=== PATIENT | male | born 1975 | race Caucasian/White ===

== ENCOUNTER 2017-04-19 22:52 | Emergency (ER) | payer MEDICAID, OTHER ==
[2017-04-19 22:52] VITALS: BMI 42.7
[2017-04-19 23:34] VITALS: TEMP 98.4; O2SAT 95
[2017-04-20] MEDS ORDERED: Tdap Vaccine 0.5 ml Vial (10-64 yrs) IM ONE ×2 (00:01→00:12)
[2017-04-20] MEDS ORDERED: Epinephrine /Lidocaine HCL 1:100,000/2% 30 ml INJ ONE (00:01)
[2017-04-20] MEDS ORDERED: Bacitracin 500 Units/gm Oint Foilpak UD TOP ONE (00:01)
[2017-04-20] MEDS ORDERED: Lidocaine 2% w Epi 1:100,000 Inj IJ ONE (00:11)
[2017-04-20] MEDS ORDERED: Bacitracin 500 Units/gm Oint Foilpak UD ONE (00:11)
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
[2017-04-20 01:06] VITALS: BP 130/84; PULSE 92; RESP 18
== END 2017-04-20 01:06 | disposition home or self-care (01) ==
LOC: C.ER 22:52
DX: S01.81XA Laceration without foreign body of other part of head, initial encounter (principal); Y08.89XA Assault by other specified means, initial encounter

== ENCOUNTER 2017-05-21 10:47 | Inpatient (IN) | payer MEDICAID ==
[2017-05-21 11:05] VITALS: BMI 43.2
[2017-05-21] MEDS ORDERED: Piperacillin/Tazobact 3.375 gm 100 ML IV STA (11:18)
[2017-05-21] MEDS ORDERED: Vancomycin 1 GM 1 GM/250 ML BAG IV SCH (11:30)
--- NOTE | 2017-05-21 11:30 | C.PDOC ---
History Of Present Illness 42 year old male presents to the ED complaining of left second toe swelling and discoloration for the last 3 days. Patient also reports subjective fever and states today the area started burning. Past medical history includes right 1st toe amputation, uncontrolled diabetes, hypertension. Denies taking metformin or checking finger sticks at home. PMD: none Time Seen by Provider: 05/21/17 11:10 Chief Complaint (Nursing): Lower Extremity Problem/Injury History Per: Patient History/Exam Limitations: no limitations Onset/Duration Of Symptoms: Days (x3) Current Symptoms Are (Timing): Still Present Past Medical History Reviewed: Historical Data, Nursing Documentation, Vital Signs Vital Signs: Last Vital Signs Temp 98 F 05/21/17 11:04 Pulse 123 H 05/21/17 11:04 Resp 26 H 05/21/17 11:04 BP 146/97 H 05/21/17 11:04 Pulse Ox 97 05/21/17 12:52 - Medical History PMH: Diabetes, Fractures (CALCANEUS RIGHT ), HTN Denies: HIV, Chronic Kidney Disease Other Surgeries: Right toe amputation - [facility] Procedures INTRODUCE REGIONAL ANESTH IN PERIPH NRV, PLEXI, PERC (01/01/15) REPAIR RIGHT LOWER LEG TENDON, OPEN APPROACH (01/01/15) SUPPLEMENT R LOW LEG TENDON WITH NONAUT SUB, OPEN APPROACH (01/01/15) Family History: States: Unknown Family Hx - Social History Hx Alcohol Use: No Hx Substance Use: No - Immunization History Hx Tetanus Toxoid Vaccination: No Hx Influenza Vaccination: No Hx Pneumococcal Vaccination: No Review Of Systems Except As Marked, All Systems Reviewed And Found Negative. Constitutional: Positive for: Fever (tactile) Skin: Positive for: Other (warmth, swelling, discoloration to left 2nd toe) Neurological: Negative for: Numbness (and tingling) Physical Exam - Physical Exam Appears: No Acute Distress, Other (White obese male) Skin: Warm, Dry, Other (Left 2nd toe appears swollen, blue, foul smelling, with spreading cellulitis to the dorsum of left foot) Head: Atraumatic, Normacephalic Eye(s): bilateral: Normal Inspection, PERRL, EOMI Nose: Normal Neck: Normal ROM, Supple Chest: Symmetrical Cardiovascular: Rhythm Regular (but slightly tachy), No Murmur Respiratory: Normal Breath Sounds, No Accessory Muscle Use Extremity: Normal ROM, Deformity (Right 1st toe amputated surgically) Pulses: Left Dorsalis Pedis: Normal, Right Dorsalis Pedis: Normal Neurological/Psych: Oriented x3, Normal Speech, Normal Motor, Normal Sensation ED Course And Treatment - Laboratory Results Result Diagrams: 05/21/17 11:30 05/21/17 11:30 Lab Interpretation: Abnormal ECG: Interpreted By Me ECG Rhythm: Sinus Rhythm ECG Interpretation: Normal, Abnormal Rate From EC O2 Sat by Pulse Oximetry: 97 (RA) Pulse Ox Interpretation: Normal - Radiology CXR: Interpreted by Me CXR Interpretation: Yes: No Acute Disease - Other Rad L 2nd toe X-Ray: Interpreted by Me (no fx/gas/disloc) Progress Note: vanco, Zosyn, IVF, insulin IV Reevaluation Time: 12:35 Reassessment Condition: Improved - Physician Consult Information Outcome Of Conversation: 1230: d/w Dr. 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 1125: called to Podiatry Tool Polishing Machine Operator- pending call-back. 1300: d/w Podiatry Marito, will consult under Dr. Arroyo Medical Decision Making Medical Decision Making: Impression: uncontrolled DM with new L 2nd toe diabetic ulcer/toe. h/o R 1st toe amputation for similar. Time: 11:18 Initial Plan: --EKG --Accucheck --VBG --Urine drug screen --CMP --CBC --PTT --Prothrombin time --Chest x-ray --Blood culture --Urinalysis --IV Zosyn and Vanco --Pending x-ray of left foot (2nd digit) Initial finger stick > 500 Disposition Doctor Will See Patient In The: Hospital Counseled Patient/Family Regarding: Studies Performed, Diagnosis - Disposition Disposition: HOSPITALIZED Disposition Time: 12:37 Condition: GOOD - Clinical Impression Clinical Impression: Diabetic ulcer of toe of left foot associated with type 2 diabetes mellitus - Scribe Statement The provider has reviewed the documentation as recorded by the Tawanda Quinones Provider Attestation: All medical record entries made by the Marychuyiblela were at my direction and personally dictated by me. I have reviewed the chart and agree that the record accurately reflects my personal performance of the history, physical exam, medical decision making, and the department course for this patient. I have also personally directed, reviewed, and agree with the discharge instructions and disposition.
[2017-05-21 11:36] LABS: BASO # 0.1 K/uL (0.0-0.2); BASO % 1.4 % (0.0-2.0); EOS # 0.1 K/uL (0.0-0.7); EOS % 0.6 % (0.0-4.0); HEMOGLOBIN 15.8 g/dL (12.0-18.0); LYMPH # 1.6 K/uL (1.0-4.3); LYMPH % 18.8 % (20.0-40.0); MEAN CELL VOLUME 86.7 fL (80.0-94.0); MEAN CORPUSCULAR HEMOGLOBIN 30.3 pg (27.0-31.0); MEAN PLATELET VOLUME 10.4 fL (7.2-11.7); MONO # 0.8 K/uL (0.0-0.8); MONO % 9.5 % (0.0-10.0); NEUT % 69.7 % (50.0-75.0); NRBC % 0.1 % (0.0-2.0); RBC 5.2 Mil/uL (4.40-5.90); RED CELL DISTRIBUTION WIDTH 12.8 % (11.5-14.5); WHITE BLOOD COUNT 8.6 K/uL (4.8-10.8)
[2017-05-21 11:37] LABS: VENOUS BLOOD GAS BASE EXCESS -1.3 mmol/L (0.0-2.0); VENOUS BLOOD GAS PCO2 40 mmHg (40-60); VENOUS BLOOD GAS PO2 49 mm/Hg (30-55); VENOUS BLOOD PH 7.38 (7.32-7.43)
[2017-05-21 11:57] LABS: ALB/GLOB RATIO 1.1 (1.0-2.1); ALBUMIN 3.8 g/dL (3.5-5.0); ALT/SGPT 43 U/L (21-72); AST/SGOT 32 U/L (17-59); BLOOD UREA NITROGEN 14 mg/dL (9-20); CALCIUM 8.2 mg/dl (8.6-10.4); GFR AFRICAN-AMERICAN > 60; GFR NON-AFRICAN AMERICAN > 60
[2017-05-21] MEDS ORDERED: (Novolin R) Insulin Human Regular 100 units/ml vial IV ONE (11:57)
[2017-05-21 11:58] LABS: PROTHROMBIN TIME 11.6 SECONDS (9.7-12.2)
[2017-05-21] MEDS ORDERED: Sodium Chloride 0.9% 1,000 ML IV ONE ×2 (12:03→12:38)
[2017-05-21] MEDS ORDERED: (Novolin R) Insulin Human Regular 100 units/ml vial ONE (12:08)
[2017-05-21] MEDS ORDERED: Vancomycin 1 gm/NS 200 ml 1 GM/200 ML BAG IVPB ONE (12:30)
--- NOTE | 2017-05-21 13:06 | RAD ---
PROCEDURE: CHEST RADIOGRAPH, 1 VIEW HISTORY: SOB COMPARISON: None available. FINDINGS: LUNGS: Clear. PLEURA: No pneumothorax or pleural fluid seen. CARDIOVASCULAR: Normal. OSSEOUS STRUCTURES: No significant abnormalities. VISUALIZED UPPER ABDOMEN: Normal. OTHER FINDINGS: None. IMPRESSION: No active disease.
--- NOTE | 2017-05-21 13:08 | RAD ---
PROCEDURE: X-ray left foot attention 2nd digit HISTORY: L 2nd toe infection COMPARISON: Not available TECHNIQUE: Three views of the left foot are submitted with attention to the 2nd digit. FINDINGS: There is no evidence of fracture. There is no lytic or blastic osseous lesion. There is no periosteal reaction appreciated. The joint spaces and articular surfaces are preserved. There is soft tissue swelling seen about the 2nd distal phalanx. IMPRESSION: No plain radiographic evidence of osteomyelitis.
[2017-05-21 13:12] LABS: URINE BACTERIA RARE (<OCC); URINE BILIRUBIN NEGATIVE (NEGATIVE); URINE BLOOD NEGATIVE (NEGATIVE); URINE CLARITY Clear (Clear); URINE COLOR Red (YELLOW); URINE GLUCOSE (UA) 3+ mg/dL (Normal); URINE LEUKOCYTE ESTERASE NEG Leu/uL (Negative); URINE PROTEIN NEGATIVE (NEGATIVE); URINE UROBILINOGEN NORMAL mg/dL (0.2-1.0)
[2017-05-21 13:19] LABS: BARBITURATES, UR NEGATIVE (NEGATIVE); BENZODIAZEPINES, UR NEGATIVE (NEGATIVE); PHENCYCLIDINE, UR NEGATIVE (NEGATIVE)
[2017-05-21 13:43] LABS: OPIATES, UR NEGATIVE (NEGATIVE)
--- NOTE | 2017-05-21 16:05 | CP.PCM.CON ---
History of Present Illness - History of Present Illness History of Present Illness: podiatry consult note for Dr. Arroyo: 42 y/o male with pmhx of uncontrolled DM, Fractures (CALCANEUS RIGHT ), HTN seen in the ED for left foot redness and swelling Patient states that about 4 days ago he removed the nail on his second toe, and yesterday he noticed redness and swelling that started streaking up his foot. Patient states that he had a previous amputation on his right foot by Dr. Gonzalez. Patient states that yesterday he felt achy and feverish but today he feels slightly better. Patient denies any other pedal complaints at this time. Patient denies any pain in his foot. He denies any n/v/d/c/sob. Patient states that he does not take any medication for his diabetes because it makes him nauseous. Review of Systems - Constitutional Constitutional: As Per HPI Past Patient History - Infectious Disease Hx of Infectious Diseases: None - Past Medical History & Family History Past Medical History?: Yes - Past Social History Smoking Status: Former Smoker - CARDIAC Hx Hypertension: Yes - PULMONARY Hx Respiratory Disorders: No - NEUROLOGICAL Hx Neurological Disorder: No - HEENT Hx HEENT Problems: No - RENAL Hx Chronic Kidney Disease: No - ENDOCRINE/METABOLIC Hx Endocrine Disorders: Yes Hx Diabetes Mellitus Type 2: Yes Other/Comment: As per patient the doctor told him he's hypertensive and diabetic but no medications. - HEMATOLOGICAL/ONCOLOGICAL Hx Human Immunodeficiency Virus (HIV): No - INTEGUMENTARY Hx Dermatological Problems: No - MUSCULOSKELETAL/RHEUMATOLOGICAL Hx Fractures: Yes (CALCANEUS RIGHT ) - GASTROINTESTINAL Hx Gastrointestinal Disorders: Yes Hx Gastroesophageal Reflux: Yes - GENITOURINARY/GYNECOLOGICAL Hx Genitourinary Disorders: No - PSYCHIATRIC Hx Substance Use: No - SURGICAL HISTORY Hx Surgeries: Yes Other/Comment: right great toe amputation. - ANESTHESIA Hx Anesthesia: Yes Hx Anesthesia Reactions: No Meds Allergies/Adverse Reactions: Allergies Allergy/AdvReac Type Severity Reaction Status Date / Time No Known Allergies Allergy Verified 05/21/17 11:04 Physical Exam - Constitutional Appears: Well, Non-toxic, No Acute Distress - Extremities Exam Additional comments: left foot focused: Vasc: palpable DP/PT pulses, TG warm to warm, CFT < 3 sec to all digits, nonpitting edema, absent pedal hair neuro: grossly diminished derm: ascending cellulitis to proximal foot, edema and erythema noted to 2nd digit with fluctuance at the distal aspect of the digit, no open lesions, slight malodor, no interdigital maceration, bulla formation at the distal tip of 2nd digit ortho: no pain on palpation to 2nd digit - Neurological Exam Neurological exam: Alert, Oriented x3 - Psychiatric Exam Psychiatric exam: Normal Affect, Normal Mood Results - Vital Signs Recent Vital Signs: Last Vital Signs Temp 97.8 F 05/21/17 15:38 Pulse 86 05/21/17 15:38 Resp 16 05/21/17 15:38 BP 139/90 05/21/17 15:38 Pulse Ox 96 05/21/17 15:38 - Labs Result Diagrams: 05/21/17 11:30 05/21/17 11:30 Labs: Laboratory Results - last 24 hr 05/21/17 05/21/17 05/21/17 11:17 11:30 11:30 WBC 8.6 RBC 5.20 Hgb 15.8 Hct 45.1 MCV 86.7 MCH 30.3 MCHC 35.0 RDW 12.8 Plt Count 144 MPV 10.4 Neut % (Auto) 69.7 Lymph % (Auto) 18.8 L [place] % (Auto) 9.5 Eos % (Auto) 0.6 Baso % (Auto) 1.4 Neut # (Auto) 6.0 Lymph # (Auto) 1.6 [place] # (Auto) 0.8 Eos # (Auto) 0.1 Baso # (Auto) 0.1 PT INR APTT pO2 VBG pH VBG pCO2 VBG HCO3 VBG Total CO2 VBG O2 Sat (Calc) VBG Base Excess VBG Potassium Glucose Lactate Crit Value Called To Crit Value Called By Crit Value Read Back Blood Gas Notified Time Sodium 134 Potassium 4.2 Chloride 95 L Carbon Dioxide 22 Anion Gap 22 H BUN 14 Creatinine 0.8 Est GFR ( Amer) > 60 Est GFR (Non-Af Amer) > 60 POC Glucose (mg/dL) > 500 H* Random Glucose 523 H* D Calcium 8.2 L Total Bilirubin 0.7 AST 32 ALT 43 Alkaline Phosphatase 89 Total Protein 7.3 Albumin 3.8 Globulin 3.5 Albumin/Globulin Ratio 1.1 Venous Blood Potassium Urine Color Urine Clarity Urine pH Ur Specific [place] Urine Protein Urine Glucose (UA) Urine Ketones Urine Blood Urine Nitrate Urine Bilirubin Urine Urobilinogen Ur Leukocyte Esterase Urine Bacteria Urine Opiates Screen Urine Methadone Screen Ur Barbiturates Screen Ur Phencyclidine Scrn Ur Amphetamines Screen U Benzodiazepines Scrn U Oth Cocaine Metabols U Cannabinoids Screen 05/21/17 05/21/17 05/21/17 11:33 11:45 12:49 WBC RBC Hgb Hct MCV MCH MCHC RDW Plt Count MPV Neut % (Auto) Lymph % (Auto) [place] % (Auto) Eos % (Auto) Baso % (Auto) Neut # (Auto) Lymph # (Auto) [place] # (Auto) Eos # (Auto) Baso # (Auto) PT 11.6 INR 1.0 APTT 25 pO2 49 VBG pH 7.38 VBG pCO2 40 VBG HCO3 23.5 VBG Total CO2 24.9 VBG O2 Sat (Calc) 89.4 H VBG Base Excess -1.3 L VBG Potassium 4.1 Glucose 539 H* Lactate 3.5 H Crit Value Called To Lorenzo osman rn Crit Value Called By Mr Crit Value Read Back Y Blood Gas Notified Time 1137 Sodium 132.0 Potassium Chloride 94.0 L Carbon Dioxide Anion Gap BUN Creatinine Est GFR ( Amer) Est GFR (Non-Af Amer) POC Glucose (mg/dL) Random Glucose Calcium Total Bilirubin AST ALT Alkaline Phosphatase Total Protein Albumin Globulin Albumin/Globulin Ratio Venous Blood Potassium 4.1 Urine Color Red Urine Clarity Clear Urine pH 5.0 Ur Specific [place] 1.031 H Urine Protein Negative Urine Glucose (UA) 3+ H Urine Ketones Trace Urine Blood Negative Urine Nitrate Negative Urine Bilirubin Negative Urine Urobilinogen Normal Ur Leukocyte Esterase Neg Urine Bacteria Rare Urine Opiates Screen Urine Methadone Screen Ur Barbiturates Screen Ur Phencyclidine Scrn Ur Amphetamines Screen U Benzodiazepines Scrn U Oth Cocaine Metabols U Cannabinoids Screen 05/21/17 05/21/17 12:49 13:56 WBC RBC Hgb Hct MCV MCH MCHC RDW Plt Count MPV Neut % (Auto) Lymph % (Auto) [place] % (Auto) Eos % (Auto) Baso % (Auto) Neut # (Auto) Lymph # (Auto) [place] # (Auto) Eos # (Auto) Baso # (Auto) PT INR APTT pO2 VBG pH VBG pCO2 VBG HCO3 VBG Total CO2 VBG O2 Sat (Calc) VBG Base Excess VBG Potassium Glucose Lactate Crit Value Called To Crit Value Called By Crit Value Read Back Blood Gas Notified Time Sodium Potassium Chloride Carbon Dioxide Anion Gap BUN Creatinine Est GFR ( Amer) Est GFR (Non-Af Amer) POC Glucose (mg/dL) 293 H Random Glucose Calcium Total Bilirubin AST ALT Alkaline Phosphatase Total Protein Albumin Globulin Albumin/Globulin Ratio Venous Blood Potassium Urine Color Urine Clarity Urine pH Ur Specific [place] Urine Protein Urine Glucose (UA) Urine Ketones Urine Blood Urine Nitrate Urine Bilirubin Urine Urobilinogen Ur Leukocyte Esterase Urine Bacteria Urine Opiates Screen Negative Urine Methadone Screen Negative Ur Barbiturates Screen Negative Ur Phencyclidine Scrn Negative Ur Amphetamines Screen Negative U Benzodiazepines Scrn Negative U Oth Cocaine Metabols Negative U Cannabinoids Screen Positive H Assessment & Plan - Assessment and Plan (Free Text) Assessment: 42 y/o male with pmhx of uncontrolled DM, HTN, fracture (right calcaneus) seen at bedside in the ED for left foot cellulitis secondary to uncontrolled diabetes Plan: patient evaluated and chart reviewed discussed in detail with attending Dr. Arroyo labs and vitals reviewed; afebrile, WBC 8.6, glucose 539 incision and drainage at bedside in the ED of left 2nd digit- expressed 10CC of purulent drainage with strong malodor wound cx obtained applied betadine, DSD to left foot x ray of left foot show no evidence of soft tissue emphysema, no evidence of acute OM, positive for swelling of 2nd digit Rx MRI left foot to rule out OM Cont. IV abx as recommended podiatry will continue to monitor while patient remains in house
[2017-05-21] MEDS: Piperacill/Tazo 3.375gm in Dex 3.375 GM/50 ML BAG IVPB SCH ×2 (18:51→22:37)
[2017-05-21] MEDS: (Novolog) Insulin Aspart, Recombinant 100 u/ml 10 ml vial SC SCH (21:42)
[2017-05-21] MEDS ORDERED: (Lantus) Insulin Glargine, Recombinant SC SCH (22:00)
[2017-05-21] MEDS ORDERED: (Novolin R) Insulin Human Regular 100 units/ml vial SC SCH (22:00)
[2017-05-22] MEDS: Piperacill/Tazo 3.375gm in Dex 3.375 GM/50 ML BAG IVPB SCH ×4 (05:41→22:07)
[2017-05-22] MEDS ORDERED: (Novolog Mix 70/30) Insulin Aspart/Insulin Aspar 100 units/ml SC SCH ×2 (07:30→16:30)
[2017-05-22] MEDS: (Novolog) Insulin Aspart, Recombinant 100 u/ml 10 ml vial SC SCH ×4 (07:36→22:28)
[2017-05-22 07:41] LABS: ALBUMIN 3.4 g/dL (3.5-5.0); ALT/SGPT 43 U/L (21-72); AST/SGOT 27 U/L (17-59); BLOOD UREA NITROGEN 15 mg/dL (9-20); CALCIUM 8.2 mg/dl (8.6-10.4); GFR AFRICAN-AMERICAN > 60; GFR NON-AFRICAN AMERICAN > 60
[2017-05-22 07:44] LABS: BASO % 0.4 % (0.0-2.0); EOS # 0.1 K/uL (0.0-0.7); EOS % 1.4 % (0.0-4.0); HEMOGLOBIN 14.6 g/dL (12.0-18.0); LYMPH # 2.4 K/uL (1.0-4.3); LYMPH % 31.8 % (20.0-40.0); MEAN CELL VOLUME 86.4 fL (80.0-94.0); MEAN CORPUSCULAR HEMOGLOBIN 30.1 pg (27.0-31.0); MEAN CORPUSCULAR HGB CONC 34.8 g/dL (33.0-37.0); MONO # 0.9 K/uL (0.0-0.8); MONO % 12.3 % (0.0-10.0); NEUT # 4.1 K/uL (1.8-7.0); NEUT % 54.1 % (50.0-75.0); RBC 4.84 Mil/uL (4.40-5.90); RED CELL DISTRIBUTION WIDTH 13.1 % (11.5-14.5); WHITE BLOOD COUNT 7.6 K/uL (4.8-10.8)
--- NOTE | 2017-05-22 08:22 | CON ---
DATE: ENDOCRINOLOGY CONSULT LOCATION: Room 552. HISTORY OF PRESENT ILLNESS: This is a 42-year-old male with known history of type 2 diabetes, admitted with left foot cellulitis and referred now for diabetic evaluation because of marked hyperglycemic accelerations with very poor adherence to his oral hypoglycemic therapy as given. PAST MEDICAL HISTORY: As mentioned above history of type 2 diabetes, previously on metformin therapy, history of hypertension and dyslipidemia, history of a previous right first toe amputation with underlying peripheral arterial vasculopathy. FAMILY HISTORY: Positive for diabetes and hypertension. SOCIAL HISTORY: The patient has supportive family. Admits to previous history of smoking. REVIEW OF SYSTEMS: Admits to generalized body weakness with easy fatigability and tiredness and suboptimal energy level with episodic dizziness and lightheadedness. Also admits to visual blurring, worse in the last two weeks or so prior to admission. No chest pain, palpitations, or PND. His oral intake is variable with nausea and dyspepsia and admits to marked polyuria, nocturia and polydipsia. Also admits to lower extremity painful paresthesias, especially nocturnally. He also admits to recent swelling in the second toe of the right foot with associated edema and painful paresthesias. He has prior removal of his nail in the second toe as noted few days prior to admission. PHYSICAL EXAMINATION: GENERAL: He is an obese male, in no apparent distress. VITAL SIGNS: Blood pressure of 140/90, pulse of 100 beats per minute and regular, temperature 99, respirations 20, height is 5 feet 11 inches, and weight is 310 pounds. HEENT: Head is normocephalic. Eyes are nonicteric with pink conjunctivae. Funduscopy is not possible at this time. Ears, nose and throat otherwise normal. NECK: Supple. Thyroid gland is normal in size. No carotid bruits or cervical adenopathy. CARDIOPULMONARY: Some adynamic precordium. S1 and S2 is rapid and regular. LUNGS: Clear to auscultation. ABDOMEN: Obese, soft with positive bowel sounds. EXTREMITIES: No peripheral edema, pulses are diminished peripherally and the right foot shows healed stump in the right hallux area, and the left foot shows erythema and edema in the proximal dorsal aspect of the left foot with prominent edema and erythema in the second digit as noted. There is also fluctuant area in the distal aspect of the second toe as noted. LABORATORY DATA: Chemistries, WBC is 8.6, hemoglobin of 15, hematocrit of 45, MCV 86, platelets 144. Chemistries showed a BUN of 14, sodium 134, potassium 4.2, chloride 95, CO2 of 22, glucose 523, and creatinine 0.8. His A1c level is 12.9%. ASSESSMENT: This is a 42-year-old male with uncontrolled and decompensated type 2 insulin requiring diabetes with marked hyperglycemic accelerations clearly indicative of marked metabolic decompensation and insulin requiring at this time as noted. There is also underlying super morbid obesity which could contribute to increase insulin resistance and further impaired glucose tolerance thereof. He also has diabetic polyneuropathy with underlying peripheral arterial vasculopathy presenting here with the left foot cellulitis and prominent left second digit infected wound at this time. PLAN OF MANAGEMENT: Although the patient is extremely poorly compliant with oral hypoglycemic therapy, we obliged to at least initiate insulin therapy for inpatient diabetic management to optimize metabolic control and also to expedite the healing of his left foot cellulitis as noted thereof. With the marked glucotoxicity, there would be no response to oral hypoglycemic therapy as inpatient and he would best respond only to insulin therapy as will be given and ordered. We will initiate Lantus tonight given as 20 units at bedtime, and we will titrate incrementally to optimize metabolic control. We will also add a premixed insulin regimen tomorrow with Novolin 70/30 given as 24 units a.c. breakfast and 16 units a.c. dinner as ordered. We will modify the coverage scale to obviate hypoglycemia and detailed orders have been given for a low dosed Novolog coverage scale as ordered. We will obtain serial chemistries and supplement accordingly as needed. He would ideally actually require IV hydration but because of his poor compliance, we will hold off the aforementioned and increase oral fluid intake accordingly. We will initiate diabetic education and dietary instructions especially weight loss efforts and healthier food choices, and we will request our thermal molder for aforementioned nutritional evaluation and recommendations. We will follow up with you. Naima Aguilar MD
--- NOTE | 2017-05-22 09:03 | CP.PCM.PN ---
Subjective - Date & Time of Evaluation Date of Evaluation: 05/22/17 Time of Evaluation: 09:00 - Subjective Subjective: podiatry progress note for Dr. Arroyo: 42 y/o male seen at bedside this morning regarding left foot redness and swelling. Patient denies any acute events overnight. Patient appears in NAD and AAOx3. Patient states that the redness and swelling has improved since yesterday. Patient denies any other pedal complaints at this time. Patient denies any pain in his foot. He denies any n/v/d/c/sob. Objective - Vital Signs/Intake and Output Vital Signs (last 24 hours): Temp Pulse Resp BP Pulse Ox 97.9 F 76 20 123/86 95 05/22/17 07:05 05/22/17 07:05 05/22/17 07:05 05/22/17 07:05 05/22/17 07:05 Intake and Output: 05/22/17 05/22/17 06:59 18:59 Intake Total 150 Balance 150 - Medications Medications: Current Medications Enoxaparin Sodium (Lovenox) 40 mg SC DAILY JACY Piperacillin Sod/Tazobactam Sod (Zosyn 3.375 Gm Iv Premix) 3.375 gm in 50 mls @ 100 mls/hr IVPB Q6H JACY PRN Reason: Protocol Last Admin: 05/22/17 05:41 Dose: 100 mls/hr Insulin Aspart (Novolog Mix 70/30 (70/30 Units/Ml)) 24 units SC ACB JACY Last Admin: 05/22/17 08:30 Dose: 24 units Insulin Aspart (Novolog Mix 70/30 (70/30 Units/Ml)) 16 units SC ACD JACY Insulin Aspart (Novolog) 0 unit SC ACHS JACY PRN Reason: Protocol Last Admin: 05/22/17 07:36 Dose: Not Given Insulin Glargine (Lantus) 20 unit SC HS JACY Last Admin: 05/21/17 22:36 Dose: 20 unit - Labs Labs: 05/22/17 07:19 05/22/17 07:19 PT 11.6 SECONDS (9.7-12.2) 05/21/17 11:45 INR 1.0 05/21/17 11:45 APTT 25 SECONDS (21-34) 05/21/17 11:45 - Constitutional Appears: Well, Non-toxic, No Acute Distress - Extremities Exam Additional comments: left foot focused: Vasc: palpable DP/PT pulses, TG warm to warm, CFT < 3 sec to all digits, nonpitting edema, absent pedal hair neuro: grossly diminished derm: ascending cellulitis to proximal foot- improved since yesterday, edema and erythema noted to 2nd digit with fluctuance at the distal aspect of the digit, no open lesions, slight malodor, no interdigital maceration, bulla formation at the distal tip of 2nd digit, expressed 4 CC of mixed purulent/ sanguinous drainage ortho: no pain on palpation to 2nd digit - Neurological Exam Neurological Exam: Alert, Awake, Oriented x3 - Psychiatric Exam Psychiatric exam: Normal Affect, Normal Mood Assessment and Plan - Assessment and Plan (Free Text) Assessment: 42 y/o male seen at bedside for left foot cellulitis secondary to uncontrolled diabetes, improving Plan: patient evaluated and chart reviewed discussed in detail with attending Dr. Arroyo labs and vitals reviewed; afebrile, WBC 7.6, glucose 239 expressed ~4CC of mixed purulent/sanguinous drainage from left 2nd digit wound cx obtained, awaiting results applied betadine, DSD to left foot x ray of left foot show no evidence of soft tissue emphysema, no evidence of acute OM, positive for swelling of 2nd digit MRI left foot consistent with cellulitis, no acute evidence of OM Cont. IV abx as recommended podiatry will continue to monitor while patient remains in house
[2017-05-22] MEDS: Enoxaparin 60 mg Syringe SC SCH (09:30)
--- NOTE | 2017-05-22 12:03 | MRI ---
PROCEDURE: MRI Left Foot HISTORY: Pain. COMPARISON: None available. TECHNIQUE: Multiecho multiplanar sequences were performed through the left foot without the use of intravenous contrast. FINDINGS: BONES: No fracture identified. There is joint space narrowing of the 1st MTP joint as well as patchy areas of marrow edema within the head and neck of the 1st metatarsal. Sclerosis and marginal osteophytes also noted of the 1st MTP joint. Remainder of the visualized bones demonstrate unremarkable marrow signal. MUSCLES: Muscle edema noted within the 4th and 5th intermetatarsal muscle. SOFT TISSUES: There is diffuse soft tissue edema primarily along the dorsum of the foot greatest above the 2nd 3rd and 4th digits. Subcutaneous soft tissue edema noted along the dorsum of the foot. LISFRANC LIGAMENT: Intact EXTENSOR TENDONS: Intact FLEXOR TENDONS: Intact OTHER FINDINGS: None. IMPRESSION: Cellulitis, primarily in the region of the 2nd, 3rd, and 4th digits. No focal fluid collection identified to suggest abscess. 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 No definite osteomyelitis identified. Muscle edema within the 4th and 5th intermetatarsal space Preliminary impression was provided by [facility]. Findings are concordant.
--- NOTE | 2017-05-22 14:34 | CP.PCM.CON ---
History of Present Illness - History of Present Illness History of Present Illness: dictated Past Patient History - Infectious Disease Hx of Infectious Diseases: None - Past Medical History & Family History Past Medical History?: Yes - Past Social History Smoking Status: Current Some Days Smoker - CARDIAC Hx Hypertension: Yes - PULMONARY Hx Respiratory Disorders: No - NEUROLOGICAL Hx Neurological Disorder: No - HEENT Hx HEENT Problems: No - RENAL Hx Chronic Kidney Disease: No - ENDOCRINE/METABOLIC Hx Endocrine Disorders: Yes Hx Diabetes Mellitus Type 2: Yes Other/Comment: As per patient the doctor told him he's hypertensive and diabetic but no medications. - HEMATOLOGICAL/ONCOLOGICAL Hx Human Immunodeficiency Virus (HIV): No - INTEGUMENTARY Hx Dermatological Problems: No - MUSCULOSKELETAL/RHEUMATOLOGICAL Hx Fractures: Yes (CALCANEUS RIGHT ) - GASTROINTESTINAL Hx Gastrointestinal Disorders: Yes Hx Gastroesophageal Reflux: Yes - GENITOURINARY/GYNECOLOGICAL Hx Genitourinary Disorders: No - PSYCHIATRIC Hx Substance Use: No - SURGICAL HISTORY Hx Surgeries: Yes Other/Comment: right great toe amputation. - ANESTHESIA Hx Anesthesia: Yes Hx Anesthesia Reactions: No Meds Allergies/Adverse Reactions: Allergies Allergy/AdvReac Type Severity Reaction Status Date / Time No Known Allergies Allergy Verified 05/21/17 11:04 - Medications Medications: Current Medications Enoxaparin Sodium (Lovenox) 40 mg SC DAILY [facility] Last Admin: 05/22/17 09:30 Dose: 40 mg Piperacillin Sod/Tazobactam Sod (Zosyn 3.375 Gm Iv Premix) 3.375 gm in 50 mls @ 100 mls/hr IVPB Q6H JACY PRN Reason: Protocol Last Admin: 05/22/17 10:15 Dose: 100 mls/hr Insulin Aspart (Novolog) 0 unit SC ACHS JACY PRN Reason: Protocol Last Admin: 05/22/17 12:27 Dose: Not Given Insulin Aspart (Novolog Mix 70/30 (70/30 Units/Ml)) 30 units SC ACB JACY Insulin Aspart (Novolog Mix 70/30 (70/30 Units/Ml)) 20 units SC ACD JACY Insulin Glargine (Lantus) 24 unit SC HS JACY Results - Vital Signs Recent Vital Signs: Last Vital Signs Temp 97.9 F 05/22/17 07:05 Pulse 76 05/22/17 07:05 Resp 20 05/22/17 07:05 BP 123/86 05/22/17 07:05 Pulse Ox 95 05/22/17 07:05 - Labs Result Diagrams: 05/22/17 07:19 05/22/17 07:19 Labs: Laboratory Results - last 24 hr 05/21/17 05/21/17 05/21/17 13:56 16:47 21:05 WBC RBC Hgb Hct MCV MCH MCHC RDW Plt Count MPV Neut % (Auto) Lymph % (Auto) [place] % (Auto) Eos % (Auto) Baso % (Auto) Neut # (Auto) Lymph # (Auto) [place] # (Auto) Eos # (Auto) Baso # (Auto) Sodium Potassium Chloride Carbon Dioxide Anion Gap BUN Creatinine Est GFR ( Amer) Est GFR (Non-Af Amer) POC Glucose (mg/dL) 293 H 290 H Random Glucose Hemoglobin A1c 12.9 H Calcium Total Bilirubin AST ALT Alkaline Phosphatase Total Protein Albumin Globulin Albumin/Globulin Ratio 05/22/17 05/22/17 05/22/17 06:12 07:19 07:19 WBC 7.6 RBC 4.84 Hgb 14.6 Hct 41.8 MCV 86.4 MCH 30.1 MCHC 34.8 RDW 13.1 Plt Count 137 MPV 10.0 Neut % (Auto) 54.1 Lymph % (Auto) 31.8 [place] % (Auto) 12.3 H Eos % (Auto) 1.4 Baso % (Auto) 0.4 Neut # (Auto) 4.1 Lymph # (Auto) 2.4 [place] # (Auto) 0.9 H Eos # (Auto) 0.1 Baso # (Auto) 0.0 Sodium 137 Potassium 4.0 Chloride 102 Carbon Dioxide 24 Anion Gap 15 BUN 15 Creatinine 0.9 Est GFR ( Amer) > 60 Est GFR (Non-Af Amer) > 60 POC Glucose (mg/dL) 213 H Random Glucose 239 H Hemoglobin A1c Calcium 8.2 L Total Bilirubin 0.8 AST 27 ALT 43 Alkaline Phosphatase 72 Total Protein 6.7 Albumin 3.4 L Globulin 3.3 Albumin/Globulin Ratio 1.0 05/22/17 11:33 WBC RBC Hgb Hct MCV MCH MCHC RDW Plt Count MPV Neut % (Auto) Lymph % (Auto) [place] % (Auto) Eos % (Auto) Baso % (Auto) Neut # (Auto) Lymph # (Auto) [place] # (Auto) Eos # (Auto) Baso # (Auto) Sodium Potassium Chloride Carbon Dioxide Anion Gap BUN Creatinine Est GFR ( Amer) Est GFR (Non-Af Amer) POC Glucose (mg/dL) 276 H Random Glucose Hemoglobin A1c Calcium Total Bilirubin AST ALT Alkaline Phosphatase Total Protein Albumin Globulin Albumin/Globulin Ratio
--- NOTE | 2017-05-22 15:42 | CP.PCM.PN ---
Subjective - Date & Time of Evaluation Date of Evaluation: 05/22/17 Time of Evaluation: 11:20 - Subjective Subjective: clinically same Objective - Vital Signs/Intake and Output Vital Signs (last 24 hours): Temp Pulse Resp BP Pulse Ox 97.9 F 76 20 123/86 95 05/22/17 07:05 05/22/17 07:05 05/22/17 07:05 05/22/17 07:05 05/22/17 07:05 Intake and Output: 05/22/17 05/22/17 06:59 18:59 Intake Total 150 Balance 150 - Medications Medications: Current Medications Enoxaparin Sodium (Lovenox) 40 mg SC DAILY [facility] Last Admin: 05/22/17 09:30 Dose: 40 mg Piperacillin Sod/Tazobactam Sod (Zosyn 3.375 Gm Iv Premix) 3.375 gm in 50 mls @ 100 mls/hr IVPB Q6H JACY PRN Reason: Protocol Last Admin: 05/22/17 10:15 Dose: 100 mls/hr Vancomycin/Sodium Chloride (Vancomycin 1 Gm/Ns 200 Ml) 1 gm in 200 mls @ 133 mls/hr IVPB Q12H JACY PRN Reason: Protocol Stop: 05/27/17 18:01 Insulin Aspart (Novolog) 0 unit SC ACHS JACY PRN Reason: Protocol Last Admin: 05/22/17 12:27 Dose: Not Given Insulin Aspart (Novolog Mix 70/30 (70/30 Units/Ml)) 30 units SC ACB JACY Insulin Aspart (Novolog Mix 70/30 (70/30 Units/Ml)) 20 units SC ACD JACY Insulin Glargine (Lantus) 24 unit SC HS JACY - Labs Labs: 05/22/17 07:19 05/22/17 07:19 PT 11.6 SECONDS (9.7-12.2) 05/21/17 11:45 INR 1.0 05/21/17 11:45 APTT 25 SECONDS (21-34) 05/21/17 11:45 - Constitutional Appears: Well - Head Exam Head Exam: ATRAUMATIC, NORMAL INSPECTION, NORMOCEPHALIC - Eye Exam Eye Exam: EOMI, Normal appearance, PERRL Pupil Exam: NORMAL ACCOMODATION, PERRL - ENT Exam ENT Exam: Mucous Membranes Moist, Normal Exam - Neck Exam Neck Exam: Full ROM, Normal Inspection. absent: Lymphadenopathy - Respiratory Exam Respiratory Exam: Decreased Breath Sounds - Cardiovascular Exam Cardiovascular Exam: REGULAR RHYTHM, +S1, +S2 - GI/Abdominal Exam GI & Abdominal Exam: Soft, Diminished Bowel Sounds - Rectal Exam Rectal Exam: Deferred Assessment and Plan - Assessment and Plan (Free Text) Plan: Continue Lantus Continue Protonix and Lovenox Continue Zosyn and vancomycin Podiatry consult Endocrinology consult ID consultations Workup for peripheral vascular disease
[2017-05-22] MEDS: (Novolog Mix 70/30) Insulin Aspart/Insulin Aspar 100 units/ml SC SCH (18:27)
[2017-05-22] MEDS: Vancomycin 1 gm/NS 200 ml 1 GM/200 ML BAG IVPB SCH (18:37)
[2017-05-22] MEDS: (Lantus) Insulin Glargine, Recombinant SC SCH (21:43)
--- NOTE | 2017-05-23 04:07 | PN ---
DATE: ENDOCRINOLOGY FOLLOWUP NOTE LOCATION: Room 552. SUBJECTIVE: This is a 42-year-old male with recent uncontrolled type 2 insulin requiring diabetes, presenting here with hyperosmolar hyperglycemic state and marked hyperglycemic accelerations related to drug omission and very poor adherence to his oral hypoglycemic therapies given. Moreover, he also has concomitant lower extremity neuropathic ulcerations and cellulitis contributing to the increased insulin resistance and further impaired glucose tolerance thereof. His glucose levels are fluctuating overnight and have ranged from 213 to 276 and 290 mg/dL. LABORATORY DATA: His latest chemistry showed a BUN of 15, sodium 137, potassium 4.0, chloride 102, CO2 of 24, glucose 239, and creatinine 0.9. His A1c level is 12.9% which is quite elevated and is indicative of suboptimal metabolic control of his diabetic condition, even prior to this admission. ASSESSMENT: So at this time, we will modify once again his basal and premixed insulin regimen and increase the NovoLog 70/30 to 30 units before breakfast and 20 units before dinner to start today. We will also titrate his basal insulin with Lantus to be given at the higher dose of 24 units subcu at bedtime daily to start tonight. We will modify the coverage scale with NovoLog coverage for very low dose algorithm to obviate hypoglycemia and detailed orders have been given. We will also reinforce diabetic education and dietary instructions, especially we could insulin regimen to prevent some forestalled microvascular and macrovascular diabetic complications of persistent uncontrolled metabolic decompensation. We will obtain serial chemistry and supplement accordingly as needed. We will follow with you. Naima Aguilar MD
[2017-05-23] MEDS: Piperacill/Tazo 3.375gm in Dex 3.375 GM/50 ML BAG IVPB SCH ×4 (04:13→22:09)
[2017-05-23] MEDS: Vancomycin 1 gm/NS 200 ml 1 GM/200 ML BAG IVPB SCH ×2 (05:12→18:45)
[2017-05-23 07:28] LABS: BASO % 0.4 % (0.0-2.0); EOS # 0.2 K/uL (0.0-0.7); EOS % 2.2 % (0.0-4.0); HEMOGLOBIN 15.7 g/dL (12.0-18.0); LYMPH # 2.3 K/uL (1.0-4.3); LYMPH % 28.9 % (20.0-40.0); MEAN CELL VOLUME 86.5 fL (80.0-94.0); MEAN CORPUSCULAR HEMOGLOBIN 29.9 pg (27.0-31.0); MEAN CORPUSCULAR HGB CONC 34.6 g/dL (33.0-37.0); MEAN PLATELET VOLUME 9.8 fL (7.2-11.7); MONO # 0.8 K/uL (0.0-0.8); MONO % 9.7 % (0.0-10.0); NEUT # 4.6 K/uL (1.8-7.0); NEUT % 58.8 % (50.0-75.0); NRBC % 0.2 % (0.0-2.0); RBC 5.26 Mil/uL (4.40-5.90); RED CELL DISTRIBUTION WIDTH 13.1 % (11.5-14.5); WHITE BLOOD COUNT 7.9 K/uL (4.8-10.8)
[2017-05-23] MEDS ORDERED: (Novolog Mix 70/30) Insulin Aspart/Insulin Aspar 100 units/ml SC SCH (07:30)
[2017-05-23 07:34] LABS: ALBUMIN 3.7 g/dL (3.5-5.0); ALT/SGPT 53 U/L (21-72); AST/SGOT 48 U/L (17-59); BLOOD UREA NITROGEN 14 mg/dL (9-20); CALCIUM 8.7 mg/dl (8.6-10.4); GFR AFRICAN-AMERICAN > 60; GFR NON-AFRICAN AMERICAN > 60
[2017-05-23] MEDS: (Novolog) Insulin Aspart, Recombinant 100 u/ml 10 ml vial SC SCH ×4 (07:48→22:00)
--- NOTE | 2017-05-23 08:38 | CP.PCM.PN ---
Subjective - Date & Time of Evaluation Date of Evaluation: 05/23/17 Time of Evaluation: 08:35 - Subjective Subjective: PGY-2 note medicine note for Dr. Skelton's service: Pt seen and examined at bedside. Nursing reports no acute events overnight. He denies pain in his extremity, but admits he still feels sensation while walking/ touching his foot. He states the swelling/redness of his toe have improved since admission. He denies fever, chills, pain in the extremity, or N/V. Pt is 42 year old male, with PMHx of uncontrolled DM, right 1st toe amputation, HTN, and hyperlipidemia. He denies taking metformin, or other medications, or checking his blood glucose levels. His reasoning was that he did not know "how bad his diabetes was." He admits to blurred vision, polyuria, polydipsia, nocturia PMHx: uncontrolled DM, HTN, Hyperlipidemia, PSHx: Right 1st toe amputation Family hx: Mother- HTN, Father - DM Objective - Vital Signs/Intake and Output Vital Signs (last 24 hours): Temp Pulse Resp BP Pulse Ox 98.1 F 78 20 136/91 H 96 05/23/17 07:10 05/23/17 07:10 05/23/17 07:10 05/23/17 07:10 05/23/17 07:10 - Medications Medications: Current Medications Enoxaparin Sodium (Lovenox) 40 mg SC DAILY [facility] Last Admin: 05/22/17 09:30 Dose: 40 mg Piperacillin Sod/Tazobactam Sod (Zosyn 3.375 Gm Iv Premix) 3.375 gm in 50 mls @ 100 mls/hr IVPB Q6H JACY PRN Reason: Protocol Last Admin: 05/23/17 04:13 Dose: 100 mls/hr Vancomycin/Sodium Chloride (Vancomycin 1 Gm/Ns 200 Ml) 1 gm in 200 mls @ 133 mls/hr IVPB Q12H JACY PRN Reason: Protocol Stop: 05/27/17 18:01 Last Admin: 05/23/17 05:12 Dose: 133 mls/hr Insulin Aspart (Novolog) 0 unit SC ACHS JACY PRN Reason: Protocol Last Admin: 05/23/17 07:48 Dose: Not Given Insulin Aspart (Novolog Mix 70/30 (70/30 Units/Ml)) 30 units SC ACB JACY Insulin Aspart (Novolog Mix 70/30 (70/30 Units/Ml)) 20 units SC ACD JACY Last Admin: 05/22/17 18:27 Dose: 20 units Insulin Glargine (Lantus) 24 unit SC HS JACY Last Admin: 05/22/17 21:43 Dose: 24 unit Pantoprazole Sodium (Protonix Ec Tab) 40 mg PO DAILY JACY - Labs Labs: 05/23/17 07:03 05/23/17 07:03 PT 11.6 SECONDS (9.7-12.2) 05/21/17 11:45 INR 1.0 05/21/17 11:45 APTT 25 SECONDS (21-34) 05/21/17 11:45 - Constitutional Appears: Non-toxic, No Acute Distress, Other (obese) - Head Exam Head Exam: ATRAUMATIC, NORMAL INSPECTION - Eye Exam Eye Exam: EOMI. absent: Scleral icterus Pupil Exam: PERRL - ENT Exam ENT Exam: Mucous Membranes Moist - Neck Exam Neck Exam: Full ROM - Respiratory Exam Respiratory Exam: Clear to Ausculation Bilateral, NORMAL BREATHING PATTERN. absent: Rales, Rhonchi, Wheezes - Cardiovascular Exam Cardiovascular Exam: REGULAR RHYTHM, +S1, +S2 - GI/Abdominal Exam GI & Abdominal Exam: Soft, Normal Bowel Sounds. absent: Tenderness - Extremities Exam Extremities Exam: Tenderness. absent: Calf Tenderness, Normal Inspection Additional comments: 2nd digit left foot: swollen, discolored DP/PT palpable pulses, Mild non-pitting edema, Warm to touch No open lesions noted - Back Exam Back Exam: absent: CVA tenderness (L), CVA tenderness (R) - Neurological Exam Neurological Exam: Alert, Awake, Oriented x3 - Psychiatric Exam Psychiatric exam: Normal Affect, Normal Mood - Skin Skin Exam: Dry, Normal Color, Warm Assessment and Plan - Assessment and Plan (Free Text) Plan: Cellulitis, Acute of Right foot Admit to med/surg Lactate 3.5 on admission Afebrile, VSS, No WBC MRI LE (05/21/17): Cellulitis, primairily in region of 2nd/3rd/4th digits. No fluid collection suggesting abscess. 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 No definite osteomyelitis. Muscle edema within 4th/5th intermetatarsal space. XR Foot (05/21/17): No plain film evidence of osteomyelitis. Dr. Santos, ID knowledge management consultant Zosyn 3.375mg Q6H (start 05/21/17) Vancomycin 1gm Q12H (start 05/22/17) - f/u Vanc trough Dr. Arroyo, Podiatry Custodial Worker -4cc purulent/sanguinous drainage expressed from left second toe on 05/22/17 Wound Culture (05/21/17): Staph Aureus, Gram Positive cocci blood cultures negative x 24 hrs x 2 Uncontrolled Diabetes Mellitus A1C: 12.9 Admission glucose > 500 UA (05/21/17): 3+ glucose, Trace Ketones Dr. Aguilar, Meat Grading Machine Operator, help appreciated Hypoglycemia protocol Lantus 24 units SC HS Novolog 70/30 20 units SC ACD, 30 units ACB KARTHIK Accuchecks Lisinopril 5mg PO Daily Crestor 2.5mg PO HS HTN Elevated over admission Start Lisinopril 5mg PO Daily Hyperlipidemia Start Crestor 2.5mg PO HS - adjust based on level f/u lipid panel Marijuana Use Disorder UDS: Positive for Cannabinoids Prophylaxis Lovenox 40mg SC Daily Protonix 40mg PO Daily SCDs C/I at this time due to cellulitis Heart Healthy Diet All medical management per Dr. Skelton
--- NOTE | 2017-05-23 09:06 | CON ---
DATE: INFECTIOUS DISEASE CONSULT REQUESTED BY: Dr. Harrison Skelton. HISTORY OF PRESENT ILLNESS: This patient is a 42-year-old male. 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 He removed the nail on his second toe which was almost falling, and he noticed redness and swelling on his second toe which was streaking down upwards to his foot and to the leg, and he has had previous amputation of the right foot with Dr. Gonzalez in [place], now comes to [facility] with foot cellulitis and with fever and he is concerned about his foot since he has had previous infections. He denies any pain in his foot. He says he is diabetic for only 3 years, however, and he states he does not take any medication for his diabetes because it makes him nauseous, so he is uncontrolled DM probably he is not allergic to any medicine. PAST MEDICAL HISTORY: Significant for having previous surgery on his right great toe, partial amputation. He is a former smoker, history of hypertension. No history of respiratory disease, but he is a big k[place]. He is 310 pounds. I am sure he has some respiratory problems related to that. He is with no chronic disease. He does have diabetes. He does have hypertension, and he denies any HIV. Denies any skin problems. He did have fracture of his right calcaneum in the past. GI feng, he has GERD. Denies any conditions. Denies any psych problems. Did have surgery on the right great toe before and had anesthesia for that probably and not allergic to any medicine. REVIEW OF SYSTEMS: He denied any ear, nose, throat problems. No chest pain. No shortness of breath. No abdominal pain. No nausea, no vomiting, no diarrhea. He did not feel pain in the feet but he saw this nail was coming off and he noticed redness on the toes streaking over the foot as well as leg and hence came to the hospital. PHYSICAL EXAMINATION: VITAL SIGNS: On examination, I have find his temperature is 97.3, pulse is 82, blood pressure is 128/87, respirations are 20. HEENT: Head is atraumatic, normocephalic. Pupils are reacting to light. NECK: Supple. JVP flat. He is morbidly obese. LUNGS: Clear. Heart: S1, S2 regular. ABDOMEN: Soft, nontender. No guarding, no rigidity present. EXTREMITIES: Right foot, distal phalanx missing, and is unremarkable. The left foot has dorsalis pedis pulses palpable and has a second toe which has discoloration and ulceration; in fact, the doctor did I and D twice on it and it had the dressing, we removed it to see what was underneath. LABORATORY DATA: He also had an MRI. White count is 7.6, hemoglobin 14.6, hematocrit is 86.4, platelet count is 137, BUN is 15, creatinine 0.9. Micro feng, his culture grew Staph aureus. Sensitivity is pending. He was only on Zosyn. We will add vancomycin pending culture reports finalization, and also we will order an ESR, and he also had an MRI of the foot, the report came back which shows cellulitis of the second, third, and fourth toe. No focal fluid collection, likely reactive edema and changes of osteoarthritis, first MTP. No definite osteomyelitis, muscle edema with fourth and fifth intermetatarsal space. Preliminary impression was provided by, findings are concordant, so there is no osteomyelitis, but there is definitely cellulitis and swelling and second toe infection with diabetic foot ulcer, and this patient's hemoglobin A1c needs to be monitored and his hemoglobin A1c is 12.9, so that speaks for itself. We will follow and to continue vancomycin and Zosyn at this time. Nile Santos MD AMBERLY
[2017-05-23] MEDS: Enoxaparin 60 mg Syringe SC SCH (09:11)
[2017-05-23] MEDS: Pantoprazole 40 mg EC Tab PO SCH (09:12)
[2017-05-23] MEDS ORDERED: Dextrose 50% SYRINGE Inj (50 ml) IV PRN (09:29)
[2017-05-23] MEDS ORDERED: Glucagon Recombinant 1 mg Inj IM PRN (09:29)
--- NOTE | 2017-05-23 10:08 | CP.PCM.PN ---
Subjective - Date & Time of Evaluation Date of Evaluation: 05/23/17 Time of Evaluation: 10:05 - Subjective Subjective: podiatry progress note for Dr. Arroyo: 42 y/o male seen at bedside this morning regarding left foot redness and swelling that has been improving. Patient denies any acute events overnight. Patient appears in NAD and AAOx3. Patient states that he feels much better than yesterday. Patient denies any other pedal complaints at this time. Patient denies any pain in his foot. He denies any n/v/d/c/sob. Objective - Vital Signs/Intake and Output Vital Signs (last 24 hours): Temp Pulse Resp BP Pulse Ox 98.1 F 78 20 136/91 H 96 05/23/17 07:10 05/23/17 07:10 05/23/17 07:10 05/23/17 07:10 05/23/17 07:10 - Medications Medications: Current Medications Dextrose (Dextrose 50% Inj) 0 ml IV STAT PRN; Protocol PRN Reason: Hypoglycemia Protocol Dextrose (Glutose 15) 0 gm PO ONCE PRN; Protocol PRN Reason: Hypoglycemia Protocol Enoxaparin Sodium (Lovenox) 40 mg SC DAILY [facility] Last Admin: 05/23/17 09:11 Dose: 40 mg Glucagon (Glucagen Diagnostic Kit) 0 mg IM STAT PRN; Protocol PRN Reason: Hypoglycemia Protocol Piperacillin Sod/Tazobactam Sod (Zosyn 3.375 Gm Iv Premix) 3.375 gm in 50 mls @ 100 mls/hr IVPB Q6H [facility] PRN Reason: Protocol Last Admin: 05/23/17 04:13 Dose: 100 mls/hr Vancomycin/Sodium Chloride (Vancomycin 1 Gm/Ns 200 Ml) 1 gm in 200 mls @ 133 mls/hr IVPB Q12H [facility] PRN Reason: Protocol Stop: 05/27/17 18:01 Last Admin: 05/23/17 05:12 Dose: 133 mls/hr Dextrose (Dextrose 5% In Water 1000 Ml) 1,000 mls @ 0 mls/hr IV .Q0M PRN; Protocol; Per Protocol PRN Reason: Hypoglycemia Protocol Insulin Aspart (Novolog) 0 unit SC ACHS [facility] PRN Reason: Protocol Last Admin: 05/23/17 07:48 Dose: Not Given Insulin Aspart (Novolog Mix 70/30 (70/30 Units/Ml)) 30 units SC ACB [facility] Last Admin: 05/23/17 08:30 Dose: 30 units Insulin Aspart (Novolog Mix 70/30 (70/30 Units/Ml)) 20 units SC ACD [facility] Last Admin: 05/22/17 18:27 Dose: 20 units Insulin Glargine (Lantus) 24 unit SC HS [facility] Last Admin: 05/22/17 21:43 Dose: 24 unit Lisinopril (Zestril) 5 mg PO DAILY [facility] Pantoprazole Sodium (Protonix Ec Tab) 40 mg PO DAILY [facility] Last Admin: 05/23/17 09:12 Dose: 40 mg Rosuvastatin Calcium (Crestor) 2.5 mg PO HS [facility] - Labs Labs: 05/23/17 07:03 05/23/17 07:03 PT 11.6 SECONDS (9.7-12.2) 05/21/17 11:45 INR 1.0 05/21/17 11:45 APTT 25 SECONDS (21-34) 05/21/17 11:45 - Constitutional Appears: Well, Non-toxic, No Acute Distress - Extremities Exam Additional comments: left foot focused: Vasc: palpable DP/PT pulses, TG warm to warm, CFT < 3 sec to all digits, nonpitting edema, absent pedal hair neuro: grossly diminished derm: ascending cellulitis to proximal foot- improved since yesterday, edema and erythema noted to 2nd digit with fluctuance at the distal aspect of the digit, no open lesions, slight malodor, no interdigital maceration, bulla formation at the distal tip of 2nd digit, expressed 1 CC of mixed purulent/ sanguinous drainage ortho: no pain on palpation to 2nd digit - Neurological Exam Neurological Exam: Alert, Awake, Oriented x3 - Psychiatric Exam Psychiatric exam: Normal Affect, Normal Mood Assessment and Plan - Assessment and Plan (Free Text) Assessment: 42 y/o male seen at bedside for left foot cellulitis secondary to uncontrolled diabetes, improving Plan: patient evaluated and chart reviewed discussed in detail with attending Dr. Arroyo labs and vitals reviewed; afebrile, WBC 7.9, glucose 188 expressed ~1CC of mixed purulent/sanguinous drainage from left 2nd digit wound cx : S. Aureus applied betadine, DSD to left foot x ray of left foot show no evidence of soft tissue emphysema, no evidence of acute OM, positive for swelling of 2nd digit MRI left foot consistent with cellulitis, no acute evidence of OM Cont. IV abx as recommended patient stable from podiatry standpoint and instructed to follow up in clinic as outpatient podiatry will continue to monitor while patient remains in house
[2017-05-23] MEDS: (Novolog Mix 70/30) Insulin Aspart/Insulin Aspar 100 units/ml SC SCH (17:15)
--- NOTE | 2017-05-23 17:53 | CP.PCM.PN ---
Subjective - Date & Time of Evaluation Date of Evaluation: 05/23/17 Time of Evaluation: 11:00 - Subjective Subjective: clinically same Objective - Vital Signs/Intake and Output Vital Signs (last 24 hours): Temp Pulse Resp BP Pulse Ox 97.9 F 86 20 133/93 H 95 05/23/17 15:00 05/23/17 15:00 05/23/17 15:00 05/23/17 15:00 05/23/17 15:00 Intake and Output: 05/23/17 05/23/17 06:59 18:59 Intake Total 450 Balance 450 - Medications Medications: Current Medications Dextrose (Dextrose 50% Inj) 0 ml IV STAT PRN; Protocol PRN Reason: Hypoglycemia Protocol Dextrose (Glutose 15) 0 gm PO ONCE PRN; Protocol PRN Reason: Hypoglycemia Protocol Enoxaparin Sodium (Lovenox) 40 mg SC DAILY [facility] Last Admin: 05/23/17 09:11 Dose: 40 mg Glucagon (Glucagen Diagnostic Kit) 0 mg IM STAT PRN; Protocol PRN Reason: Hypoglycemia Protocol Piperacillin Sod/Tazobactam Sod (Zosyn 3.375 Gm Iv Premix) 3.375 gm in 50 mls @ 100 mls/hr IVPB Q6H [facility] PRN Reason: Protocol Last Admin: 05/23/17 17:12 Dose: 100 mls/hr Vancomycin/Sodium Chloride (Vancomycin 1 Gm/Ns 200 Ml) 1 gm in 200 mls @ 133 mls/hr IVPB Q12H [facility] PRN Reason: Protocol Stop: 05/27/17 18:01 Last Admin: 05/23/17 05:12 Dose: 133 mls/hr Dextrose (Dextrose 5% In Water 1000 Ml) 1,000 mls @ 0 mls/hr IV .Q0M PRN; Protocol; Per Protocol PRN Reason: Hypoglycemia Protocol Insulin Aspart (Novolog) 0 unit SC ACHS [facility] PRN Reason: Protocol Last Admin: 05/23/17 17:16 Dose: Not Given Insulin Aspart (Novolog Mix 70/30 (70/30 Units/Ml)) 30 units SC ACB [facility] Last Admin: 05/23/17 08:30 Dose: 30 units Insulin Aspart (Novolog Mix 70/30 (70/30 Units/Ml)) 20 units SC ACD [facility] Last Admin: 05/23/17 17:15 Dose: 20 units Insulin Glargine (Lantus) 24 unit SC [facility] Last Admin: 05/22/17 21:43 Dose: 24 unit Lisinopril (Zestril) 5 mg PO DAILY [facility] Last Admin: 05/23/17 10:52 Dose: 5 mg Pantoprazole Sodium (Protonix Ec Tab) 40 mg PO DAILY [facility] Last Admin: 05/23/17 09:12 Dose: 40 mg Rosuvastatin Calcium (Crestor) 2.5 mg PO [facility] - Labs Labs: 05/23/17 07:03 05/23/17 07:03 PT 11.6 SECONDS (9.7-12.2) 05/21/17 11:45 INR 1.0 05/21/17 11:45 APTT 25 SECONDS (21-34) 05/21/17 11:45 - Constitutional Appears: Well - Head Exam Head Exam: ATRAUMATIC, NORMAL INSPECTION, NORMOCEPHALIC - Eye Exam Eye Exam: EOMI, Normal appearance, PERRL Pupil Exam: NORMAL ACCOMODATION, PERRL - ENT Exam ENT Exam: Mucous Membranes Moist, Normal Exam - Neck Exam Neck Exam: Full ROM, Normal Inspection. absent: Lymphadenopathy - Respiratory Exam Respiratory Exam: Decreased Breath Sounds - Cardiovascular Exam Cardiovascular Exam: REGULAR RHYTHM, +S1, +S2 - GI/Abdominal Exam GI & Abdominal Exam: Soft, Diminished Bowel Sounds - Rectal Exam Rectal Exam: Deferred
--- NOTE | 2017-05-23 20:36 | PN ---
DATE: ROOM: 552 SUBJECTIVE: This is a 42-year-old male with recent uncontrolled type 2 insulin-requiring diabetes, presenting here with left lower extremity cellulitis and underlying neuropathic ulceration and is being followed closely for metabolic management. His glycemic labs have been extremely elevated with a hemoglobin A1c of 12.9% indicative of very poor outpatient metabolic control of his diabetic condition. His glucose levels overnight were fluctuating, but improved and have ranged from 221 to 276 mg/dL. The latest chemistries shows a BUN of 15, sodium 137, potassium 4.0, chloride 102, CO2 24, glucose 239, and creatinine 0.9. So, at this time we will continue the modified basal and premixed insulin regimen as ordered with NovoLog 70/30 given as 30 units before breakfast and 20 units before dinner as ordered. We will continue the higher basal insulin given as Lantus at 24 units subcutaneous at bedtime daily as given. We will titrate incrementally as indicated to optimize metabolic control. We will follow and advice accordingly. Naima Aguilar MD
[2017-05-23] MEDS: (Lantus) Insulin Glargine, Recombinant SC SCH (21:59)
[2017-05-23] MEDS ORDERED: Rosuvastatin Calcium 2.5 mg Tab PO SCH (22:00)
[2017-05-24] MEDS: Piperacill/Tazo 3.375gm in Dex 3.375 GM/50 ML BAG IVPB SCH (05:00)
[2017-05-24] MEDS: Vancomycin 1 gm/NS 200 ml 1 GM/200 ML BAG IVPB SCH (06:09)
[2017-05-24] MEDS ORDERED: (Novolog Mix 70/30) Insulin Aspart/Insulin Aspar 100 units/ml SC SCH ×2 (07:30→16:30)
[2017-05-24 07:50] VITALS: BP 126/84; PULSE 74; RESP 18; TEMP 97.7; O2SAT 97
[2017-05-24] MEDS: (Novolog) Insulin Aspart, Recombinant 100 u/ml 10 ml vial SC SCH ×2 (08:14→11:30)
[2017-05-24 08:15] LABS: BASO % 0.5 % (0.0-2.0); EOS # 0.1 K/uL (0.0-0.7); EOS % 1.8 % (0.0-4.0); LYMPH # 2.3 K/uL (1.0-4.3); LYMPH % 29.3 % (20.0-40.0); MEAN CELL VOLUME 86.8 fL (80.0-94.0); MEAN CORPUSCULAR HEMOGLOBIN 29.8 pg (27.0-31.0); MEAN CORPUSCULAR HGB CONC 34.3 g/dL (33.0-37.0); MEAN PLATELET VOLUME 9.7 fL (7.2-11.7); MONO # 0.6 K/uL (0.0-0.8); MONO % 7.2 % (0.0-10.0); NEUT # 4.9 K/uL (1.8-7.0); NEUT % 61.2 % (50.0-75.0); NRBC % 0.2 % (0.0-2.0); RBC 5.04 Mil/uL (4.40-5.90); RED CELL DISTRIBUTION WIDTH 12.8 % (11.5-14.5)
[2017-05-24 08:25] LABS: ALBUMIN 3.4 g/dL (3.5-5.0); ALT/SGPT 60 U/L (21-72); AST/SGOT 47 U/L (17-59); BLOOD UREA NITROGEN 13 mg/dL (9-20); CALCIUM 8.2 mg/dl (8.6-10.4); GFR AFRICAN-AMERICAN > 60; GFR NON-AFRICAN AMERICAN > 60; HDL CHOLESTEROL 25 mg/dL (30-70)
[2017-05-24 08:44] LABS: LDL CHOLESTEROL 189 mg/dL (0-129)
--- NOTE | 2017-05-24 08:55 | CP.PCM.PN ---
Subjective - Date & Time of Evaluation Date of Evaluation: 05/24/17 Time of Evaluation: 08:55 - Subjective Subjective: Podiatry Progress Note - Dr. Arroyo 42M seen and evaluated at bedside for left foot infection, improving. Patient hemodynamically stable and NAD. No acute events overnight. Denies any pain to his left foot. Dressing present to left foot, clean/dry/intact. Patient reports he is able to ambulate without any issues. Offers no pedal complaints this visit. Denies N/V/F/D/C/SOB/BEST/dizziness. Objective - Vital Signs/Intake and Output Vital Signs (last 24 hours): Temp Pulse Resp BP Pulse Ox 97.7 F 74 18 126/84 97 05/24/17 07:10 05/24/17 07:10 05/24/17 07:10 05/24/17 07:10 05/24/17 07:10 Intake and Output: 05/24/17 05/24/17 06:59 18:59 Intake Total 300 Balance 300 - Medications Medications: Current Medications Dextrose (Dextrose 50% Inj) 0 ml IV STAT PRN; Protocol PRN Reason: Hypoglycemia Protocol Dextrose (Glutose 15) 0 gm PO ONCE PRN; Protocol PRN Reason: Hypoglycemia Protocol Enoxaparin Sodium (Lovenox) 40 mg SC DAILY [facility] Last Admin: 05/23/17 09:11 Dose: 40 mg Glucagon (Glucagen Diagnostic Kit) 0 mg IM STAT PRN; Protocol PRN Reason: Hypoglycemia Protocol Piperacillin Sod/Tazobactam Sod (Zosyn 3.375 Gm Iv Premix) 3.375 gm in 50 mls @ 100 mls/hr IVPB Q6H [facility] PRN Reason: Protocol Last Admin: 05/24/17 05:00 Dose: 100 mls/hr Vancomycin/Sodium Chloride (Vancomycin 1 Gm/Ns 200 Ml) 1 gm in 200 mls @ 133 mls/hr IVPB Q12H [facility] PRN Reason: Protocol Stop: 05/27/17 18:01 Last Admin: 05/24/17 06:09 Dose: 133 mls/hr Dextrose (Dextrose 5% In Water 1000 Ml) 1,000 mls @ 0 mls/hr IV .Q0M PRN; Protocol; Per Protocol PRN Reason: Hypoglycemia Protocol Insulin Aspart (Novolog) 0 unit SC ACHS [facility] PRN Reason: Protocol Last Admin: 05/24/17 08:14 Dose: Not Given Insulin Aspart (Novolog Mix 70/30 (70/30 Units/Ml)) 34 units SC ACB [facility] Insulin Aspart (Novolog Mix 70/30 (70/30 Units/Ml)) 24 units SC ACD [facility] Insulin Glargine (Lantus) 24 unit SC HS [facility] Last Admin: 05/23/17 21:59 Dose: 24 unit Lisinopril (Zestril) 5 mg PO DAILY [facility] Last Admin: 05/23/17 10:52 Dose: 5 mg Pantoprazole Sodium (Protonix Ec Tab) 40 mg PO DAILY [facility] Last Admin: 05/23/17 09:12 Dose: 40 mg Rosuvastatin Calcium (Crestor) 2.5 mg PO HS [facility] Last Admin: 05/23/17 21:59 Dose: 2.5 mg - Labs Labs: 05/24/17 07:56 05/24/17 07:56 PT 11.6 SECONDS (9.7-12.2) 05/21/17 11:45 INR 1.0 05/21/17 11:45 APTT 25 SECONDS (21-34) 05/21/17 11:45 - Constitutional Appears: Well, Non-toxic, No Acute Distress - Extremities Exam Additional comments: left foot focused: Vasc: palpable DP/PT pulses, TG warm to warm, CFT < 3 sec to all digits, nonpitting edema, absent pedal hair neuro: grossly diminished derm: ascending cellulitis to proximal foot continues to improve with localization remaining in 2nd digit, edema and erythema noted to 2nd digit with fluctuance at the distal-medial aspect of the digit, absent malodor, no interdigital maceration, lanced bulla at the distal tip of 2nd digit with minimal purulence/serosanguinous drainage able to be expressed ortho: no pain on palpation to 2nd digit - Neurological Exam Neurological Exam: Alert, Awake, Oriented x3 - Psychiatric Exam Psychiatric exam: Normal Affect, Normal Mood Assessment and Plan - Assessment and Plan (Free Text) Assessment: 42 y/o male seen at bedside for left foot cellulitis secondary to uncontrolled diabetes, improving Plan: Patient seen and evaluated Discussed with attending, Dr. Arroyo Afebrile, WBC WNL 8.0, glucose 170 Drainage decreasing - able to express minimal amount of purulent/serosanguinous drainage from left 2nd digit L foot WCx reveals growth of staph aureus Continue local wound care - betadine, DSD L foot XR reveals no evidence of soft tissue emphysema, no evidence of acute OM , positive for swelling of 2nd digit MRI left foot consistent with cellulitis, no acute evidence of OM Continue IV abx - Vancomycin 1g IV Zosyn 3.375g IV -May be d/c on oral abx Stable from podiatry standpoint; advised patient to follow up in podiatry clinic (Sunday afternoons) as outpatient Podiatry will continue to follow while patient in house
[2017-05-24] MEDS: Enoxaparin 60 mg Syringe SC SCH (09:20)
[2017-05-24] MEDS: Pantoprazole 40 mg EC Tab PO SCH (09:21)
--- NOTE | 2017-05-24 09:33 | CP.PCM.PN ---
<Travon Edmond - Last Filed: 05/24/17 14:03> Subjective - Date & Time of Evaluation Date of Evaluation: 05/24/17 Time of Evaluation: 09:04 - Subjective Subjective: PGY-2 note medicine note for Dr. Skelton's service: Pt seen and examined at bedside. Nursing reports no acute events overnight. Patient continues to deny pain in the foot. Patient states he is able to walk to the bathroom without difficulty. Education given to patient about importance of managing diabetes to avoid long-term effects of hyperglycemia on kidneys, heart, circulation. Patient states he understands and will follow up with Dr. Skelton, tomorrow, to start follow up on his uncontrolled diabetes. Objective - Vital Signs/Intake and Output Vital Signs (last 24 hours): Temp Pulse Resp BP Pulse Ox 97.7 F 74 18 126/84 97 05/24/17 07:10 05/24/17 07:10 05/24/17 07:10 05/24/17 07:10 05/24/17 07:10 Intake and Output: 05/24/17 05/24/17 06:59 18:59 Intake Total 300 Balance 300 - Medications Medications: Current Medications Dextrose (Dextrose 50% Inj) 0 ml IV STAT PRN; Protocol PRN Reason: Hypoglycemia Protocol Dextrose (Glutose 15) 0 gm PO ONCE PRN; Protocol PRN Reason: Hypoglycemia Protocol Enoxaparin Sodium (Lovenox) 40 mg SC DAILY [facility] Last Admin: 05/23/17 09:11 Dose: 40 mg Glucagon (Glucagen Diagnostic Kit) 0 mg IM STAT PRN; Protocol PRN Reason: Hypoglycemia Protocol Piperacillin Sod/Tazobactam Sod (Zosyn 3.375 Gm Iv Premix) 3.375 gm in 50 mls @ 100 mls/hr IVPB Q6H [facility] PRN Reason: Protocol Last Admin: 05/24/17 05:00 Dose: 100 mls/hr Vancomycin/Sodium Chloride (Vancomycin 1 Gm/Ns 200 Ml) 1 gm in 200 mls @ 133 mls/hr IVPB Q12H [facility] PRN Reason: Protocol Stop: 05/27/17 18:01 Last Admin: 05/24/17 06:09 Dose: 133 mls/hr Dextrose (Dextrose 5% In Water 1000 Ml) 1,000 mls @ 0 mls/hr IV .Q0M PRN; Protocol; Per Protocol PRN Reason: Hypoglycemia Protocol Insulin Aspart (Novolog) 0 unit SC ACHS [facility] PRN Reason: Protocol Last Admin: 05/24/17 08:14 Dose: Not Given Insulin Aspart (Novolog Mix 70/30 (70/30 Units/Ml)) 34 units SC ACB [facility] Insulin Aspart (Novolog Mix 70/30 (70/30 Units/Ml)) 24 units SC ACD [facility] Insulin Glargine (Lantus) 24 unit SC HS [facility] Last Admin: 05/23/17 21:59 Dose: 24 unit Lisinopril (Zestril) 5 mg PO DAILY [facility] Last Admin: 05/23/17 10:52 Dose: 5 mg Qnawm-5-Syty Ethyl Esters (Lovaza) 1 gm PO BID [facility] Pantoprazole Sodium (Protonix Ec Tab) 40 mg PO DAILY [facility] Last Admin: 05/23/17 09:12 Dose: 40 mg Rosuvastatin Calcium (Crestor) 2.5 mg PO HS [facility] Last Admin: 05/23/17 21:59 Dose: 2.5 mg - Labs Labs: 05/24/17 07:56 05/24/17 07:56 PT 11.6 SECONDS (9.7-12.2) 05/21/17 11:45 INR 1.0 05/21/17 11:45 APTT 25 SECONDS (21-34) 05/21/17 11:45 - Additional Findings Additional findings: - Constitutional Appears: Non-toxic, No Acute Distress, Other (obese) - Head Exam Head Exam: ATRAUMATIC, NORMAL INSPECTION - Eye Exam Eye Exam: EOMI. absent: Scleral icterus Pupil Exam: PERRL - ENT Exam ENT Exam: Mucous Membranes Moist - Neck Exam Neck Exam: Full ROM - Respiratory Exam Respiratory Exam: Clear to Ausculation Bilateral, NORMAL BREATHING PATTERN. absent: Rales, Rhonchi, Wheezes - Cardiovascular Exam Cardiovascular Exam: REGULAR RHYTHM, +S1, +S2 - GI/Abdominal Exam GI & Abdominal Exam: Soft, Normal Bowel Sounds. absent: Tenderness - Extremities Exam Extremities Exam: Tenderness. absent: Calf Tenderness, Normal Inspection Additional comments: 2nd digit left foot: swollen, discolored DP/PT palpable pulses, Mild non-pitting edema, Warm to touch, Not TTP Cellulitis receding since admission Dressing intact; - Back Exam Back Exam: absent: CVA tenderness (L), CVA tenderness (R) - Neurological Exam Neurological Exam: Alert, Awake, Oriented x3 - Psychiatric Exam Psychiatric exam: Normal Affect, Normal Mood - Skin Skin Exam: Dry, Normal Color, Warm Assessment and Plan - Assessment and Plan (Free Text) Plan: Cellulitis, Acute of Right foot Admit to med/surg Lactate 3.5 on admission Afebrile, VSS, No WBC MRI LE (05/21/17): Cellulitis, primairily in region of 2nd/3rd/4th digits. No fluid collection suggesting abscess. 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 No definite osteomyelitis. Muscle edema within 4th/5th intermetatarsal space. XR Foot (05/21/17): No plain film evidence of osteomyelitis. Dr. Santos, ID organizational research consultant Start Keflex 500mg PO QID x 2 weeks Discontinue Zosyn 3.375mg Q6H (start 05/21/17) Discontinue Vancomycin 1gm Q12H (start 05/22/17) Dr. Arroyo, Podiatry Community Life Director - stable from podiatry standpoint, follow up as outpatient in clinic Wound Culture (05/21/17): Staph Aureus Blood cultures negative x 48 hrs x 2 Uncontrolled Diabetes Mellitus A1C: 12.9 Admission glucose > 500 UA (05/21/17): 3+ glucose, Trace Ketones Dr. Aguilar, Pinball Machine Repairer, help appreciated Hypoglycemia protocol Lantus 24 units SC HS Novolog 70/30 24 units SC ACD, 34 units ACB [facility] Accuchecks Lisinopril 5mg PO Daily Crestor 10mg PO HS HTN Well controlled this AM Start Lisinopril 5mg PO Daily Hyperlipidemia TG 219, Chol 228, LDL 189, HDL 25 Increased Crestor 10mg PO HS Low HDL HDL 25 Start Lovaza 1gm BID Marijuana Use Disorder UDS: Positive for Cannabinoids Prophylaxis Lovenox 40mg SC Daily Protonix 40mg PO Daily SCDs C/I at this time due to cellulitis Heart Healthy Diet All medical management per Dr. Skelton <Triny Skelton - Last Filed: 05/24/17 19:22> Objective - Vital Signs/Intake and Output Vital Signs (last 24 hours): Temp Pulse Resp BP Pulse Ox 97.7 F 74 18 126/84 97 05/24/17 07:10 05/24/17 07:10 05/24/17 07:10 05/24/17 07:10 05/24/17 07:10 - Labs Labs: 05/24/17 07:56 05/24/17 07:56 PT 11.6 SECONDS (9.7-12.2) 05/21/17 11:45 INR 1.0 05/21/17 11:45 APTT 25 SECONDS (21-34) 05/21/17 11:45 Attending/Attestation - Attestation I have personally seen and examined this patient.: Yes I have fully participated in the care of the patient.: Yes I have reviewed all pertinent clinical information, including history, physical exam and plan: Yes Notes (Text): 05/24/17 19:22 case seen and d/w staff and resident as ordered as ordered
[2017-05-24] MEDS ORDERED: Omega-3-Acid Ethyl Esters 1 GM Cap PO SCH (10:00)
--- NOTE | 2017-05-24 13:58 | CP.PCM.PN ---
Subjective - Date & Time of Evaluation Date of Evaluation: 05/24/17 Time of Evaluation: 11:00 - Subjective Subjective: clinically same Objective - Vital Signs/Intake and Output Vital Signs (last 24 hours): Temp Pulse Resp BP Pulse Ox 97.7 F 74 18 126/84 97 05/24/17 07:10 05/24/17 07:10 05/24/17 07:10 05/24/17 07:10 05/24/17 07:10 Intake and Output: 05/24/17 05/24/17 06:59 18:59 Intake Total 300 Balance 300 - Medications Medications: Current Medications Cephalexin Monohydrate (Keflex) 500 mg PO Q6 [facility] PRN Reason: Protocol Dextrose (Dextrose 50% Inj) 0 ml IV STAT PRN; Protocol PRN Reason: Hypoglycemia Protocol Dextrose (Glutose 15) 0 gm PO ONCE PRN; Protocol PRN Reason: Hypoglycemia Protocol Enoxaparin Sodium (Lovenox) 40 mg SC DAILY [facility] Last Admin: 05/24/17 09:20 Dose: 40 mg Glucagon (Glucagen Diagnostic Kit) 0 mg IM STAT PRN; Protocol PRN Reason: Hypoglycemia Protocol Dextrose (Dextrose 5% In Water 1000 Ml) 1,000 mls @ 0 mls/hr IV .Q0M PRN; Protocol; Per Protocol PRN Reason: Hypoglycemia Protocol Insulin Aspart (Novolog) 0 unit SC ACHS [facility] PRN Reason: Protocol Last Admin: 05/24/17 11:30 Dose: Not Given Insulin Aspart (Novolog Mix 70/30 (70/30 Units/Ml)) 34 units SC ACB [facility] Last Admin: 05/24/17 08:20 Dose: 34 units Insulin Aspart (Novolog Mix 70/30 (70/30 Units/Ml)) 24 units SC ACD [facility] Insulin Glargine (Lantus) 24 unit SC HS [facility] Last Admin: 05/23/17 21:59 Dose: 24 unit Lisinopril (Zestril) 5 mg PO DAILY [facility] Last Admin: 05/24/17 09:21 Dose: 5 mg Rwmnh-8-Tlhs Ethyl Esters (Lovaza) 1 gm PO BID [facility] Last Admin: 05/24/17 10:42 Dose: 1 gm Pantoprazole Sodium (Protonix Ec Tab) 40 mg PO DAILY [facility] Last Admin: 05/24/17 09:21 Dose: 40 mg Rosuvastatin Calcium (Crestor) 10 mg PO HS [facility] - Labs Labs: 05/24/17 07:56 05/24/17 07:56 PT 11.6 SECONDS (9.7-12.2) 05/21/17 11:45 INR 1.0 05/21/17 11:45 APTT 25 SECONDS (21-34) 05/21/17 11:45 - Constitutional Appears: Well - Head Exam Head Exam: ATRAUMATIC, NORMAL INSPECTION, NORMOCEPHALIC - Eye Exam Eye Exam: EOMI, Normal appearance, PERRL Pupil Exam: NORMAL ACCOMODATION, PERRL - ENT Exam ENT Exam: Mucous Membranes Moist, Normal Exam - Neck Exam Neck Exam: Full ROM, Normal Inspection. absent: Lymphadenopathy - Respiratory Exam Respiratory Exam: Decreased Breath Sounds - Cardiovascular Exam Cardiovascular Exam: REGULAR RHYTHM, +S1, +S2 - GI/Abdominal Exam GI & Abdominal Exam: Soft, Diminished Bowel Sounds - Rectal Exam Rectal Exam: Deferred
--- NOTE | 2017-05-24 22:16 | PN ---
DATE: LOCATION: Room 552. SUBJECTIVE: This is a 42-year-old male with recent uncontrolled type 2 insulin-requiring diabetes, now being followed closely for metabolic management. His glycemic levels are still fluctuating and ranging from 170 to 182 and 265 mg/dL. His latest chemistries showed a BUN of 13, sodium 138, potassium 3.8, chloride 102, CO2 24, glucose 184, and creatinine 0.8. His glucose values have ranged from 170 to 265 mg/dL. So at this time, we will modify the premixed insulin regimen and increase the NovoLog 70/30 to 64 units before breakfast and 24 units before dinner as ordered. We will titrate incrementally as indicated to optimize metabolic control. We will follow and advise accordingly. Naima Aguilar MD
--- NOTE | 2017-05-25 22:52 | CARD ---
APPROVED REPORT EKG Measurement Heart [id number] <Conclusion> Sinus tachycardia Septal infarct, age undetermined Abnormal ECG
== END 2017-05-24 15:10 | disposition home or self-care (01) | DRG 294 ==
LOC: C.ER 10:47 → C.9E 12:31 → C.5S 14:35
PROVIDERS: ADMIT Internal Medicine Nephrology; ATTEND Internal Medicine Nephrology
DX: E11.621 Type 2 diabetes mellitus with foot ulcer (principal); L03.032 Cellulitis of left toe; L97.529 Non-pressure chronic ulcer of other part of left foot with unspecified severity; E11.42 Type 2 diabetes mellitus with diabetic polyneuropathy; E11.65 Type 2 diabetes mellitus with hyperglycemia; L03.116 Cellulitis of left lower limb; I10 Essential (primary) hypertension; K21.9 Gastro-esophageal reflux disease without esophagitis; E78.5 Hyperlipidemia, unspecified; E66.01 Morbid (severe) obesity due to excess calories; Z89.411 Acquired absence of right great toe; Z79.4 Long term (current) use of insulin; Z91.14 Patient's other noncompliance with medication regimen; Z87.81 Personal history of (healed) traumatic fracture; Z87.891 Personal history of nicotine dependence

== ENCOUNTER 2017-10-07 05:59 | Emergency (ER) | payer MEDICAID ==
[2017-10-07 06:00] VITALS: BMI 43.2
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
[2017-10-07 07:23] VITALS: RESP 20
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
[2017-10-07 12:36] VITALS: BP 129/83; PULSE 106; TEMP 98.4; O2SAT 98
[2017-10-07] MEDS ORDERED: Lidocaine 1%/Epinephrine 1:100000 30 ml vial IJ ONE (12:46)
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
[2017-10-07] MEDS ORDERED: Lidocaine 2% MPF (5 ml) Inj ONE (13:00)
== END 2017-10-07 13:54 | disposition home or self-care (01) ==
LOC: C.ER 05:59
DX: S02.2XXA Fracture of nasal bones, initial encounter for closed fracture (principal); S01.511A Laceration without foreign body of lip, initial encounter; S22.080A Wedge compression fracture of T11-T12 vertebra, initial encounter for closed fracture; Y08.89XA Assault by other specified means, initial encounter; Y92.9 Unspecified place or not applicable; E11.9 Type 2 diabetes mellitus without complications

== ENCOUNTER 2018-02-23 01:47 | Inpatient (IN) | payer MEDICAID ==
[2018-02-23 01:48] VITALS: BMI 43.2
[2018-02-23 02:56] LABS: BASO % 0.3 % (0.0-2.0); EOS # 0.1 K/uL (0.0-0.7); EOS % 0.4 % (0.0-4.0); HEMOGLOBIN 14.7 g/dL (12.0-18.0); LYMPH # 1.8 K/uL (1.0-4.3); LYMPH % 14.5 % (20.0-40.0); MEAN CELL VOLUME 87.7 fL (80.0-94.0); MEAN CORPUSCULAR HEMOGLOBIN 29.8 pg (27.0-31.0); MEAN PLATELET VOLUME 10.1 fL (7.2-11.7); MONO # 0.9 K/uL (0.0-0.8); MONO % 7.4 % (0.0-10.0); NEUT # 9.8 K/uL (1.8-7.0); NEUT % 77.4 % (50.0-75.0); RBC 4.91 Mil/uL (4.40-5.90); RED CELL DISTRIBUTION WIDTH 13.3 % (11.5-14.5); WHITE BLOOD COUNT 12.7 K/uL (4.8-10.8)
[2018-02-23 03:06] LABS: ALB/GLOB RATIO 1.4 (1.0-2.1); ALBUMIN 4.5 g/dL (3.5-5.0); ALT/SGPT 21 U/L (21-72); AST/SGOT 22 U/L (17-59); BLOOD UREA NITROGEN 23 mg/dL (9-20); CALCIUM 8.6 mg/dl (8.6-10.4); GFR NON-AFRICAN AMERICAN > 60
--- NOTE | 2018-02-23 03:28 | C.PDOC ---
History Of Present Illness 43 y/o male with dm, non compliant with medications since summer 2016, presents with lesion to left great toe, started as a blister a few days ago. pt now with worse skin peeling to bottom left big toe, with pain, redness and swelling that radiates up left layton. +subjective fever. hx right great toe partial amputation. discussed with Dr Vik Skelton. Time Seen by Provider: 02/23/18 02:10 Chief Complaint (Nursing): Abnormal Skin Integrity History Per: Patient History/Exam Limitations: no limitations Onset/Duration Of Symptoms: Days Current Symptoms Are (Timing): Worse Location Of Injury: Left: Foot Quality Of Symptoms: Painful, Itching, Swollen Severity: Moderate Past Medical History Reviewed: Historical Data, Nursing Documentation, Vital Signs Vital Signs: Last Vital Signs Temp 98 F 02/23/18 01:59 Pulse 101 H 02/23/18 01:59 Resp 16 02/23/18 01:59 BP 160/106 H 02/23/18 01:59 Pulse Ox 98 02/23/18 01:59 - Medical History PMH: Diabetes, Fractures (CALCANEUS RIGHT ), HTN Denies: Chronic Kidney Disease Other Surgeries: partial right great toe amputation - [facility] Procedures INTRODUCE REGIONAL ANESTH IN PERIPH NRV, PLEXI, PERC (01/01/15) REPAIR RIGHT LOWER LEG TENDON, OPEN APPROACH (01/01/15) SUPPLEMENT R LOW LEG TENDON WITH NONAUT SUB, OPEN APPROACH (01/01/15) Family History: States: Unknown Family Hx - Social History Hx Alcohol Use: No Hx Substance Use: Yes - Immunization History Hx Tetanus Toxoid Vaccination: No Hx Influenza Vaccination: No Hx Pneumococcal Vaccination: No Review Of Systems Constitutional: Negative for: Fever, Chills Cardiovascular: Negative for: Chest Pain Respiratory: Negative for: Cough Gastrointestinal: Negative for: Nausea, Vomiting, Abdominal Pain Musculoskeletal: Positive for: Foot Pain (left) Skin: Positive for: Other (ulcerationed left great toe). Negative for: Bruising Neurological: Negative for: Weakness, Numbness Physical Exam - Physical Exam Appears: Non-toxic, No Acute Distress Skin: Warm, Dry, Other (left great toe with hardened darkened skin to dorsal surface proxcimal to nail, with ventral suurface toe with peeling skin, skin misdsing to tip of toe, whth skin on bottom surface from mid toe and distally with some seous discharge. ) Head: Atraumatic, Normacephalic Oral Mucosa: Moist Neck: Supple Lymphatic: No Adenopathy Chest: Tenderness Cardiovascular: Rhythm Regular, Murmur Respiratory: Normal Breath Sounds, No Rales, No Rhonchi, No Wheezing Gastrointestinal/Abdominal: Bowel Sounds, Soft, No Tenderness Extremity: Normal ROM, Tenderness (dorsum left foot), Pedal Edema (left lower leg. ), No Calf Tenderness, Swelling (and erythema to dorsum left foot, ), Other Pulses: Left Dorsalis Pedis: Normal, Right Dorsalis Pedis: Normal Neurological/Psych: Oriented x3, Normal Speech, Normal Cognition, Normal Cranial Nerves ED Course And Treatment - Laboratory Results Result Diagrams: 02/23/18 02:51 02/23/18 02:51 O2 Sat by Pulse Oximetry: 98 Medical Decision Making Medical Decision Making: pt with dm, non compliant with med, with open area to left great toe, started as blister, with elevated sbc, tender cellulitis area to foot will admit for ant ibiotics, podiatry eval. . Disposition Discussed With : Triny Skelton Doctor Will See Patient In The: Hospital - Disposition Disposition: HOSPITALIZED Disposition Time: 04:53 Condition: GOOD - Clinical Impression Clinical Impression: Diabetic ulcer of toe, Cellulitis of left foot
[2018-02-23] MEDS ORDERED: Piperacillin/Tazobact 3.375 GM in Sodium Chloride 100 ML IVPB STA (03:48)
[2018-02-23] MEDS ORDERED: Piperacillin/Tazobact 3.375 gm 100 ML IVPB ONE (04:16)
[2018-02-23] MEDS ORDERED: Vancomycin 1 GM 1 GM/250 ML BAG IVPB ONE (05:04)
[2018-02-23] MEDS ORDERED: Vancomycin 1 gm/NS 200 ml 1 GM/200 ML BAG IVPB SCH (09:00)
[2018-02-23] MEDS ORDERED: Piperacill/Tazo 3.375gm in Dex 3.375 GM/50 ML BAG IVPB SCH (09:00)
[2018-02-23] MEDS ORDERED: Piperacillin/Tazobact 3.375 GM in Sodium Chloride 100 ML IVPB SCH (10:00)
[2018-02-23] MEDS: Piperacill/Tazo 3.375gm in Dex 3.375 GM/50 ML BAG IVPB SCH ×2 (11:26→21:23)
[2018-02-23] MEDS: (Novolog) Insulin Aspart, Recombinant 100 u/ml 10 ml vial SC SCH ×3 (12:27→21:24)
--- NOTE | 2018-02-23 12:39 | RAD ---
PROCEDURE: Radiographs of the left great toe. TECHNIQUE:: AP radiograph of the left foot, with oblique and lateral view of the left great toe. COMPARISON: None. FINDINGS: BONES: No fracture. No osseous erosion or periosteal reaction. JOINTS: Normal. SOFT TISSUES: Normal. OTHER FINDINGS: None. IMPRESSION: No plain radiographic evidence of osteomyelitis. If there is persistent clinical suspicion of osteomyelitis recommend evaluation with magnetic resonance imaging.
--- NOTE | 2018-02-23 15:03 | CP.PCM.CON ---
History of Present Illness - History of Present Illness History of Present Illness: INFECTIOUS DISEASE CONSULTATION; HPI; 43 y/o male with HX OF DM , non compliant with medications since summer 2016, presents with lesion to left great toe, started as a blister a few days ago. Pt now with worse skin peeling to bottom left big toe, with pain, redness and swelling that radiates up left layton. C/O +subjective fever. HX of right great toe partial amputation. INFECTIOUS DISEASE CONSULTATION REQUESTED BY DR Vik CURIEL FOR DIABETIC FOOT ULCER LEFT GREAT TOE. PATIENT WAS STARTED ON iv zOSYN 3.375 EVERY 8 HOURLY AND VANCOMYCIN 1 G EVERY 24 HOURLY AFTER APPROPRIATE CULTURES. PMH: Diabetes, Fractures (CALCANEUS RIGHT ), HTN Denies: Chronic Kidney Disease Other Surgeries: partial right great toe amputation - [facility] Procedures INTRODUCE REGIONAL ANESTH IN PERIPH NRV, PLEXI, PERC (01/01/15) REPAIR RIGHT LOWER LEG TENDON, OPEN APPROACH (01/01/15) SUPPLEMENT R LOW LEG TENDON WITH NONAUT SUB, OPEN APPROACH (01/01/15) Family History: States: Unknown Family Hx - Social History Hx Alcohol Use: No Hx Substance Use: Yes - Immunization History Hx Tetanus Toxoid Vaccination: No Hx Influenza Vaccination: No Hx Pneumococcal Vaccination: No. SOCIAL HISTORY; 1-2 CIGARETTES A DAY DENIES SUBSTANCE ABUSE, OR ALCOHOL ABUSE. ALLERGY; NKA. Review of Systems - Constitutional Constitutional: Fever. absent: Chills - EENT Eyes: absent: Change in Vision Nose/Mouth/Throat: absent: Mouth Lesions - Cardiovascular Cardiovascular: absent: Chest Pain - Respiratory Respiratory: absent: Cough, Hemoptysis - Gastrointestinal Gastrointestinal: absent: Abdominal Pain, Diarrhea, Nausea, Vomiting - Genitourinary Genitourinary: absent: Dysuria, Freq UTI - Neurological Neurological: absent: Headaches - Hematologic/Lymphatic Hematologic: As Per HPI. absent: Easy Bleeding, Easy Bruising Past Patient History - Infectious Disease Hx of Infectious Diseases: None - Past Medical History & Family History Past Medical History?: Yes - Past Social History Smoking Status: 1 rarely - CARDIAC Hx Hypertension: Yes - PULMONARY Hx Respiratory Disorders: No - NEUROLOGICAL Hx Neurological Disorder: No - HEENT Hx HEENT Problems: No - RENAL Hx Chronic Kidney Disease: No - ENDOCRINE/METABOLIC Hx Endocrine Disorders: Yes Hx Diabetes Mellitus Type 2: Yes - HEMATOLOGICAL/ONCOLOGICAL Hx Blood Disorders: No - INTEGUMENTARY Hx Dermatological Problems: No - MUSCULOSKELETAL/RHEUMATOLOGICAL Hx Falls: No - GASTROINTESTINAL Hx Gastrointestinal Disorders: Yes Hx Gastroesophageal Reflux: No - GENITOURINARY/GYNECOLOGICAL Hx Genitourinary Disorders: No - PSYCHIATRIC Hx Substance Use: Yes (niranjan) - SURGICAL HISTORY Hx Surgeries: Yes Hx Amputation: Yes (RIGHT GREAT TOE) - ANESTHESIA Hx Anesthesia: Yes Meds Allergies/Adverse Reactions: Allergies Allergy/AdvReac Type Severity Reaction Status Date / Time No Known Allergies Allergy Verified 10/07/17 06:14 - Medications Medications: Current Medications Heparin Sodium (Porcine) (Heparin) 5,000 units SC Q12 [facility] Last Admin: 02/23/18 11:26 Dose: 5,000 units Vancomycin/Sodium Chloride (Vancomycin 1 Gm/Ns 200 Ml) 1 gm in 200 mls @ 166.7 mls/hr IVPB Q24H [facility]; Protocol Stop: 03/01/18 06:01 Piperacillin Sod/Tazobactam Sod (Zosyn 3.375 Gm Iv Premix) 3.375 gm in 50 mls @ 200 mls/hr IVPB Q8H [facility]; Protocol Last Admin: 02/23/18 11:26 Dose: 200 mls/hr Insulin Aspart (Novolog) 0 unit SC ACHS [facility]; Protocol Last Admin: 02/23/18 12:27 Dose: 2 units Physical Exam - Constitutional Appears: No Acute Distress - Head Exam Head Exam: NORMAL INSPECTION - Eye Exam Eye Exam: EOMI, PERRL - ENT Exam ENT Exam: Normal Oropharynx - Neck Exam Neck exam: Positive for: Normal Inspection. Negative for: Lymphadenopathy - Respiratory Exam Respiratory Exam: Clear to Auscultation Bilateral, NORMAL BREATHING PATTERN - Cardiovascular Exam Cardiovascular Exam: REGULAR RHYTHM, +S1, +S2 - GI/Abdominal Exam GI & Abdominal Exam: Normal Bowel Sounds, Soft. absent: Organomegaly - Extremities Exam Extremities exam: Positive for: normal capillary refill (LT GREAT TOE WITH ULCER +VE DRESSING .), pedal edema, tenderness (DORSUM OF THE LEFT FOOT.), pedal pulses present. Negative for: calf tenderness - Neurological Exam Neurological exam: Alert, CN II-XII Intact, Oriented x3, Reflexes Normal - Psychiatric Exam Psychiatric exam: Normal Mood - Skin Skin Exam: Normal Color, Warm Results - Vital Signs Recent Vital Signs: Last Vital Signs Temp 98 F 02/23/18 08:13 Pulse 90 02/23/18 08:13 Resp 20 02/23/18 08:13 BP 119/77 02/23/18 08:13 Pulse Ox 96 02/23/18 08:13 - Labs Result Diagrams: 02/23/18 02:51 02/23/18 02:51 Labs: Laboratory Results - last 24 hr 02/23/18 02/23/18 02/23/18 02:21 02:51 02:51 WBC 12.7 H D RBC 4.91 Hgb 14.7 Hct 43.1 MCV 87.7 MCH 29.8 MCHC 34.0 RDW 13.3 Plt Count 165 MPV 10.1 Neut % (Auto) 77.4 H Lymph % (Auto) 14.5 L [place] % (Auto) 7.4 Eos % (Auto) 0.4 Baso % (Auto) 0.3 Neut # (Auto) 9.8 H Lymph # (Auto) 1.8 [place] # (Auto) 0.9 H Eos # (Auto) 0.1 Baso # (Auto) 0.0 ESR 35 H Sodium 136 Potassium 3.7 Chloride 99 Carbon Dioxide 25 Anion Gap 16 BUN 23 H Creatinine 1.0 Est GFR ( Amer) > 60 Est GFR (Non-Af Amer) > 60 POC Glucose (mg/dL) 165 H Random Glucose 177 H Hemoglobin A1c Calcium 8.6 Total Bilirubin 0.6 AST 22 ALT 21 D Alkaline Phosphatase 75 Total Protein 7.7 Albumin 4.5 Globulin 3.2 Albumin/Globulin Ratio 1.4 02/23/18 02/23/18 02/23/18 02:51 06:38 11:16 WBC RBC Hgb Hct MCV MCH MCHC RDW Plt Count MPV Neut % (Auto) Lymph % (Auto) [place] % (Auto) Eos % (Auto) Baso % (Auto) Neut # (Auto) Lymph # (Auto) [place] # (Auto) Eos # (Auto) Baso # (Auto) ESR Sodium Potassium Chloride Carbon Dioxide Anion Gap BUN Creatinine Est GFR ( Amer) Est GFR (Non-Af Amer) POC Glucose (mg/dL) 144 H 244 H Random Glucose Hemoglobin A1c 8.2 H D Calcium Total Bilirubin AST ALT Alkaline Phosphatase Total Protein Albumin Globulin Albumin/Globulin Ratio - Imaging and Cardiology X-RAY LEFT FOOT Status: Report reviewed by me Assessment & Plan (1) Diabetic ulcer of toe Status: Acute (2) Cellulitis of left foot Status: Acute (3) Diabetes mellitus Status: Acute - Assessment and Plan (Free Text) Plan: PLAN ; PANCULTURES WOUND CULTURES ESR. CRP. CONTINUE iv zOSYN 3.375 EVERY 8 HOURLY 02/22/18. INCREASE iv VANCOMYCIN TO 1 G EVERY 12 HOURLY. 02/23/18. F/U VANCO TROUGH PRIOR TO THE FOURTH DOSE AND KEEP BETWEEN 10 AND 20MCG/ML. FOLLOW-UP CULTURES TO ADJUST ANTIBIOTICS. PODIATRY CONSULT. [facility].. wILL FOLLOW ALONG WITH YOU. THANK YOU.
--- NOTE | 2018-02-23 15:19 | CP.PCM.CON ---
History of Present Illness - History of Present Illness History of Present Illness: Podiatry consult note for Dr. Arroyo 43M with pmhx of IDDM and HTN seen and evaluated at bedside for left hallux ulcer. Resting comfortably. States that he noticed that he had a wound getting larger on the bottom of his toe a few weeks ago and was treating it himself by keeping it covered and putting ointment on it. States he also sustained a puncture wound on the bottom of his foot but it has healed on its own so he had thought this wound would heal as well. States that he had a similar presentation on his right great toe which led to an amputation. States that he is neuropathic so he does not have any pain associated with the wound. Denies N/V/F/C/SOB/CP and states that on presentation to the ED some of his foot was red but since being started on antibiotics he has noticed a significant improvement. PMHx: IDDM, HTN PSHx: right hallux partial amputation All: NKDA Past Patient History - Infectious Disease Hx of Infectious Diseases: None - Past Medical History & Family History Past Medical History?: Yes - Past Social History Smoking Status: 1 rarely - CARDIAC Hx Hypertension: Yes - PULMONARY Hx Respiratory Disorders: No - NEUROLOGICAL Hx Neurological Disorder: No - HEENT Hx HEENT Problems: No - RENAL Hx Chronic Kidney Disease: No - ENDOCRINE/METABOLIC Hx Endocrine Disorders: Yes Hx Diabetes Mellitus Type 2: Yes - HEMATOLOGICAL/ONCOLOGICAL Hx Blood Disorders: No - INTEGUMENTARY Hx Dermatological Problems: No - MUSCULOSKELETAL/RHEUMATOLOGICAL Hx Falls: No - GASTROINTESTINAL Hx Gastrointestinal Disorders: Yes Hx Gastroesophageal Reflux: No - GENITOURINARY/GYNECOLOGICAL Hx Genitourinary Disorders: No - PSYCHIATRIC Hx Substance Use: Yes ([facility]) - SURGICAL HISTORY Hx Surgeries: Yes Hx Amputation: Yes (RIGHT GREAT TOE) - ANESTHESIA Hx Anesthesia: Yes Meds Allergies/Adverse Reactions: Allergies Allergy/AdvReac Type Severity Reaction Status Date / Time No Known Allergies Allergy Verified 10/07/17 06:14 - Medications Medications: Current Medications Heparin Sodium (Porcine) (Heparin) 5,000 units SC Q12 [facility] Last Admin: 02/23/18 11:26 Dose: 5,000 units Piperacillin Sod/Tazobactam Sod (Zosyn 3.375 Gm Iv Premix) 3.375 gm in 50 mls @ 200 mls/hr IVPB Q8H [facility]; Protocol Last Admin: 02/23/18 11:26 Dose: 200 mls/hr Vancomycin/Sodium Chloride (Vancomycin 1 Gm/Ns 200 Ml) 1 gm in 200 mls @ 166.6 mls/hr IVPB Q12H [facility]; Protocol Stop: 02/28/18 15:16 Insulin Aspart (Novolog) 0 unit SC ACHS [facility]; Protocol Last Admin: 02/23/18 12:27 Dose: 2 units Physical Exam - Constitutional Appears: Well, Non-toxic, No Acute Distress - Head Exam Head Exam: ATRAUMATIC, NORMOCEPHALIC - Extremities Exam Additional comments: LLE focused Vasc: DP and PT pulses palpable; cap refill <3 seconds to all digits; temp gradient warm to warm from proximal to distal; mild edema noted about the left hallux Derm: unstageable pressure ulceration present at the plantar aspect of the hallux; no probe to bone; no tunneling or tracking; no undermining; periwound erythema noted; demarcation on presentation, significant improvement; no pus or purulent drainage appreciated; no clinical signs of infection Ortho: no pain on palpation; no gross pathology noted otherwise Neuro: gross and protective sensation diminished - Neurological Exam Neurological exam: Alert, Oriented x3 - Psychiatric Exam Psychiatric exam: Normal Affect, Normal Mood Results - Vital Signs Recent Vital Signs: Last Vital Signs Temp 98 F 02/23/18 08:13 Pulse 90 02/23/18 08:13 Resp 20 02/23/18 08:13 BP 119/77 02/23/18 08:13 Pulse Ox 96 02/23/18 08:13 - Labs Result Diagrams: 02/23/18 02:51 02/23/18 02:51 Labs: Laboratory Results - last 24 hr 02/23/18 02/23/18 02/23/18 02:21 02:51 02:51 WBC 12.7 H D RBC 4.91 Hgb 14.7 Hct 43.1 MCV 87.7 MCH 29.8 MCHC 34.0 RDW 13.3 Plt Count 165 MPV 10.1 Neut % (Auto) 77.4 H Lymph % (Auto) 14.5 L [place] % (Auto) 7.4 Eos % (Auto) 0.4 Baso % (Auto) 0.3 Neut # (Auto) 9.8 H Lymph # (Auto) 1.8 [place] # (Auto) 0.9 H Eos # (Auto) 0.1 Baso # (Auto) 0.0 ESR 35 H Sodium 136 Potassium 3.7 Chloride 99 Carbon Dioxide 25 Anion Gap 16 BUN 23 H Creatinine 1.0 Est GFR ( Amer) > 60 Est GFR (Non-Af Amer) > 60 POC Glucose (mg/dL) 165 H Random Glucose 177 H Hemoglobin A1c Calcium 8.6 Total Bilirubin 0.6 AST 22 ALT 21 D Alkaline Phosphatase 75 Total Protein 7.7 Albumin 4.5 Globulin 3.2 Albumin/Globulin Ratio 1.4 02/23/18 02/23/18 02/23/18 02:51 06:38 11:16 WBC RBC Hgb Hct MCV MCH MCHC RDW Plt Count MPV Neut % (Auto) Lymph % (Auto) [place] % (Auto) Eos % (Auto) Baso % (Auto) Neut # (Auto) Lymph # (Auto) [place] # (Auto) Eos # (Auto) Baso # (Auto) ESR Sodium Potassium Chloride Carbon Dioxide Anion Gap BUN Creatinine Est GFR ( Amer) Est GFR (Non-Af Amer) POC Glucose (mg/dL) 144 H 244 H Random Glucose Hemoglobin A1c 8.2 H D Calcium Total Bilirubin AST ALT Alkaline Phosphatase Total Protein Albumin Globulin Albumin/Globulin Ratio Assessment & Plan - Assessment and Plan (Free Text) Assessment: 43M with pmhx of IDDM and HTN seen and evaluated with left plantar hallux unstageable pressure ulceration Plan: Patient seen and evaluated Discussed in detail with Dr. Cruz Osorio, WBC 12.7 ID consult, Dr. Cazares - f/u recs Continue abx per medicine Wound cx ordered - f/u results Arterial duplex ordered - f/u results X-ray of left foot ordered L foot MRI, r/o osteo - ordered Wound dressed with betadine, DSD Will continue to follow up while in house Thank you for the consult - Date & Time Date: 02/23/18 Time: 15:36
[2018-02-23] MEDS: Vancomycin 1 gm/NS 200 ml 1 GM/200 ML BAG IVPB SCH (17:12)
--- NOTE | 2018-02-23 18:22 | RAD ---
Date of service: 02/23/2018 PROCEDURE: Left Foot Radiographs. HISTORY: left hallux ulceration, r/o osteo COMPARISON: None. FINDINGS: BONES: Normal. No fracture. JOINTS: Normal. SOFT TISSUES: Normal. OTHER FINDINGS: None. IMPRESSION: Normal left foot radiographs.
--- NOTE | 2018-02-23 21:08 | CP.PCM.HP ---
Past Patient History - Infectious Disease Hx of Infectious Diseases: None - Past Medical History & Family History Past Medical History?: Yes - Past Social History Smoking Status: 1 rarely - CARDIAC Hx Hypertension: Yes - PULMONARY Hx Respiratory Disorders: No - NEUROLOGICAL Hx Neurological Disorder: No - HEENT Hx HEENT Problems: No - RENAL Hx Chronic Kidney Disease: No - ENDOCRINE/METABOLIC Hx Endocrine Disorders: Yes Hx Diabetes Mellitus Type 2: Yes - HEMATOLOGICAL/ONCOLOGICAL Hx Blood Disorders: No - INTEGUMENTARY Hx Dermatological Problems: No - MUSCULOSKELETAL/RHEUMATOLOGICAL Hx Falls: No - GASTROINTESTINAL Hx Gastrointestinal Disorders: Yes Hx Gastroesophageal Reflux: No - GENITOURINARY/GYNECOLOGICAL Hx Genitourinary Disorders: No - PSYCHIATRIC Hx Substance Use: Yes (marajuana) - SURGICAL HISTORY Hx Surgeries: Yes Hx Amputation: Yes (RIGHT GREAT TOE) - ANESTHESIA Hx Anesthesia: Yes Meds Allergies/Adverse Reactions: Allergies Allergy/AdvReac Type Severity Reaction Status Date / Time No Known Allergies Allergy Verified 10/07/17 06:14 Physical Exam - Constitutional Appears: Well - Head Exam Head Exam: ATRAUMATIC, NORMAL INSPECTION, NORMOCEPHALIC - Eye Exam Eye Exam: EOMI, Normal appearance, PERRL Pupil Exam: NORMAL ACCOMODATION, PERRL - ENT Exam ENT Exam: Mucous Membranes Moist, Normal Exam - Neck Exam Neck exam: Positive for: Normal Inspection - Respiratory Exam Respiratory Exam: Decreased Breath Sounds - Cardiovascular Exam Cardiovascular Exam: REGULAR RHYTHM, +S1, +S2 - GI/Abdominal Exam GI & Abdominal Exam: Diminished Bowel Sounds, Soft - Rectal Exam Rectal Exam: Deferred Results - Vital Signs Recent Vital Signs: Last Vital Signs Temp 97.6 F 02/23/18 15:00 Pulse 83 02/23/18 15:00 Resp 20 02/23/18 15:00 BP 123/85 02/23/18 15:00 Pulse Ox 96 02/23/18 15:00 - Labs Result Diagrams: 02/23/18 02:51 02/23/18 02:51 Labs: Laboratory Results - last 24 hr 02/23/18 02/23/18 02/23/18 02:21 02:51 02:51 WBC 12.7 H D RBC 4.91 Hgb 14.7 Hct 43.1 MCV 87.7 MCH 29.8 MCHC 34.0 RDW 13.3 Plt Count 165 MPV 10.1 Neut % (Auto) 77.4 H Lymph % (Auto) 14.5 L Maverick % (Auto) 7.4 Eos % (Auto) 0.4 Baso % (Auto) 0.3 Neut # (Auto) 9.8 H Lymph # (Auto) 1.8 Maverick # (Auto) 0.9 H Eos # (Auto) 0.1 Baso # (Auto) 0.0 ESR 35 H Sodium 136 Potassium 3.7 Chloride 99 Carbon Dioxide 25 Anion Gap 16 BUN 23 H Creatinine 1.0 Est GFR ( Amer) > 60 Est GFR (Non-Af Amer) > 60 POC Glucose (mg/dL) 165 H Random Glucose 177 H Hemoglobin A1c Calcium 8.6 Total Bilirubin 0.6 AST 22 ALT 21 D Alkaline Phosphatase 75 Total Protein 7.7 Albumin 4.5 Globulin 3.2 Albumin/Globulin Ratio 1.4 02/23/18 02/23/18 02/23/18 02:51 06:38 11:16 WBC RBC Hgb Hct MCV MCH MCHC RDW Plt Count MPV Neut % (Auto) Lymph % (Auto) Maverick % (Auto) Eos % (Auto) Baso % (Auto) Neut # (Auto) Lymph # (Auto) Maverick # (Auto) Eos # (Auto) Baso # (Auto) ESR Sodium Potassium Chloride Carbon Dioxide Anion Gap BUN Creatinine Est GFR ( Amer) Est GFR (Non-Af Amer) POC Glucose (mg/dL) 144 H 244 H Random Glucose Hemoglobin A1c 8.2 H D Calcium Total Bilirubin AST ALT Alkaline Phosphatase Total Protein Albumin Globulin Albumin/Globulin Ratio 02/23/18 17:52 WBC RBC Hgb Hct MCV MCH MCHC RDW Plt Count MPV Neut % (Auto) Lymph % (Auto) Maverick % (Auto) Eos % (Auto) Baso % (Auto) Neut # (Auto) Lymph # (Auto) Maverick # (Auto) Eos # (Auto) Baso # (Auto) ESR Sodium Potassium Chloride Carbon Dioxide Anion Gap BUN Creatinine Est GFR ( Amer) Est GFR (Non-Af Amer) POC Glucose (mg/dL) 176 H Random Glucose Hemoglobin A1c Calcium Total Bilirubin AST ALT Alkaline Phosphatase Total Protein Albumin Globulin Albumin/Globulin Ratio
[2018-02-24] MEDS: Vancomycin 1 gm/NS 200 ml 1 GM/200 ML BAG IVPB SCH ×2 (03:54→15:17)
[2018-02-24] MEDS: Piperacill/Tazo 3.375gm in Dex 3.375 GM/50 ML BAG IVPB SCH ×2 (03:58→12:17)
[2018-02-24] MEDS ORDERED: Vancomycin 1 gm/NS 200 ml 1 GM/200 ML BAG IVPB SCH (06:00)
[2018-02-24] MEDS: (Novolog) Insulin Aspart, Recombinant 100 u/ml 10 ml vial SC SCH ×4 (08:29→22:50)
--- NOTE | 2018-02-24 21:22 | CP.PCM.PN ---
Subjective - Date & Time of Evaluation Date of Evaluation: 02/24/18 Time of Evaluation: 08:15 - Subjective Subjective: clinically same Objective - Vital Signs/Intake and Output Vital Signs (last 24 hours): Temp Pulse Resp BP Pulse Ox 98.4 F 79 20 133/78 99 02/24/18 15:00 02/24/18 15:00 02/24/18 15:00 02/24/18 15:00 02/24/18 15:00 - Medications Medications: Current Medications Heparin Sodium (Porcine) (Heparin) 5,000 units SC Q12 JACY Last Admin: 02/24/18 10:57 Dose: 5,000 units Vancomycin/Sodium Chloride (Vancomycin 1 Gm/Ns 200 Ml) 1 gm in 200 mls @ 166.6 mls/hr IVPB Q12H JACY; Protocol Stop: 02/28/18 15:16 Last Admin: 02/24/18 15:17 Dose: 166.6 mls/hr Insulin Aspart (Novolog) 0 unit SC ACHS JACY; Protocol Last Admin: 02/24/18 18:26 Dose: Not Given - Labs Labs: 02/23/18 02:51 02/23/18 02:51
[2018-02-25] MEDS: Simethicone 80 mg Chewtab PO PRN (00:38)
[2018-02-25] MEDS: Vancomycin 1 gm/NS 200 ml 1 GM/200 ML BAG IVPB SCH ×2 (03:10→14:35)
[2018-02-25] MEDS: (Novolog) Insulin Aspart, Recombinant 100 u/ml 10 ml vial SC SCH ×4 (08:28→21:30)
--- NOTE | 2018-02-25 09:13 | CP.PCM.PN ---
Subjective - Date & Time of Evaluation Date of Evaluation: 02/24/18 Time of Evaluation: 13:00 - Subjective Subjective: 43M seen and evaluated at bedside. Resting comfortably. Denies pain or discomfort in feet or at left hallux. States he remembers a similar trend with his last amputation in regards to darkening of the digit. Denies N/V/F/C/SOB/CP and has no other acute complaints. Objective - Vital Signs/Intake and Output Vital Signs (last 24 hours): Temp Pulse Resp BP Pulse Ox 97.6 F 88 20 149/97 H 97 02/25/18 07:24 02/25/18 07:24 02/25/18 07:24 02/25/18 07:24 02/25/18 07:24 Intake and Output: 02/25/18 02/25/18 06:59 18:59 Intake Total 600 Balance 600 - Medications Medications: Current Medications Heparin Sodium (Porcine) (Heparin) 5,000 units SC Q12 JACY Last Admin: 02/24/18 22:51 Dose: 5,000 units Vancomycin/Sodium Chloride (Vancomycin 1 Gm/Ns 200 Ml) 1 gm in 200 mls @ 166.6 mls/hr IVPB Q12H JACY; Protocol Stop: 02/28/18 15:16 Last Admin: 02/25/18 03:10 Dose: 166.6 mls/hr Insulin Aspart (Novolog) 0 unit SC ACHS JACY; Protocol Last Admin: 02/24/18 22:50 Dose: Not Given Lactulose (Enulose) 20 gm PO HS JACY Last Admin: 02/25/18 00:38 Dose: 20 gm Simethicone (Mylicon Chew Tab) 80 mg PO TID PRN PRN Reason: GI distress Last Admin: 02/25/18 00:38 Dose: 80 mg - Labs Labs: 02/23/18 02:51 02/23/18 02:51 - Constitutional Appears: Well, Non-toxic, No Acute Distress - Head Exam Head Exam: ATRAUMATIC, NORMOCEPHALIC - Extremities Exam Additional comments: LLE focused Vasc: DP and PT pulses palpable; cap refill <3 seconds to all digits; temp gradient warm to warm from proximal to distal; mild edema noted about the left hallux Derm: unstageable pressure ulceration present at the plantar aspect of the hallux; no probe to bone; no tunneling or tracking; no undermining; periwound erythema noted; demarcation on presentation, significant improvement; no pus or purulent drainage appreciated; no clinical signs of infection; gangrenous changes noted, increased area of darkened tissue plantarly Ortho: no pain on palpation; no gross pathology noted otherwise Neuro: gross and protective sensation diminished - Neurological Exam Neurological Exam: Alert, Awake, Oriented x3 - Psychiatric Exam Psychiatric exam: Normal Affect, Normal Mood Assessment and Plan - Assessment and Plan (Free Text) Assessment: 43M with left plantar hallux unstageable pressure ulceration with gangrenous changes Plan: Patient seen and evaluated Discussed in detail with Dr. Cruz Osorio, WBC 12.7 (02/23) ID consult, Dr. Cazares - f/u recs Continue abx per medicine Wound cx ordered - gram positive cocci Arterial duplex ordered - taken, read pending X-ray of left foot - normal x-ray, no acute pathology noted L foot MRI w/o contrast, r/o osteo - ordered Wound cleansed with sterile saline and dressed with betadine, DSD Will continue to follow up while in house
--- NOTE | 2018-02-25 14:22 | VASCLAB ---
Date of service: 02/25/2018 STUDY DESCRIPTION: Lower Extremity Arterial Exam (PVR). HISTORY: left hallux ulceration PRIORS: None. TECHNIQUE: Pulse volume recording waveforms and segmental pressures of bilateral lower extremities at multiple levels were obtained. Ankle Brachial Indices (ABIs) were calculated. Report prepared by LORENA Ferrera, RVT RIGHT LOWER EXTREMITY: * Brachial artery: Pressure - 152 mmHg. * High thigh: Pressure - mmHg: Ratio - : PVR waveform - Pulsatile * Low thigh: Pressure - mmHg: Ratio - PVR waveform: Pulsatile * Calf: Pressure - 189 mmHg: Ratio - 1.24 PVR waveform: Pulsatile * Posterior tibial Artery: Pressure - 181 mmHg: Ratio - 1.19 PVR waveform: Pulsatile * Dorsalis pedis Artery: Pressure - 185 mmHg: Ratio - 1.22 PVR waveform: Pulsatile * Great toe: Pressure - mmHg: Ratio - PVR waveform: Ankle brachial index (LATRICIA): 1.22 LEFT LOWER EXTREMITY: * Brachial artery: Pressure - 148 mmHg. * High thigh: Pressure - mmHg: Ratio - : PVR waveform - Pulsatile * Low thigh: Pressure - mmHg: Ratio - PVR waveform: Pulsatile * Calf: Pressure - 187 mmHg: Ratio - 1.23 PVR waveform: Pulsatile * Posterior tibial Artery: Pressure - 189 mmHg: Ratio - 1.24 PVR waveform: Pulsatile * Dorsalis pedis Artery: Pressure - 193 mmHg: Ratio - 1.27 PVR waveform: Pulsatile * Great toe: Pressure - mmHg: Ratio - PVR waveform: Ankle brachial index (LATRICIA): 1.27 OTHER FINDINGS: Right: Left: IMPRESSION: Right: The ankle pressure index of the right lower extremity is non-diagnostic due to possible arterial wall calcifications. Left: The ankle pressure index of the left lower extremity is non-diagnostic due to possible arterial wall calcifications.
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
[2018-02-25] MEDS ORDERED: Iodixanol 320 mg/ml 150 ml Bottle IV ONE ×2 (15:25→15:42)
--- NOTE | 2018-02-25 15:55 | MRI ---
Date of service: 02/25/2018 PROCEDURE: MRI of the left foot without contrast HISTORY: left hallux ulceration r/o osteomyelitis COMPARISON: Comparison is made to the previous x-ray of left foot dated 02/23/2018 previous MRI dated 05/21/2017 TECHNIQUE: Axial coronal and sagittal MRI images of the left foot were obtained without contrast administration. FINDINGS: Interval appearance of diffuse bone marrow edema at the distal phalanx of the 1st toe associated with cortical erosion. Findings are suspicious for osteomyelitis. There is a diffuse soft tissue edema in the 1st toe associated with skin defect suggestive of ulcer. No evidence of discrete fluid collection. The rest of the osseous structure demonstrate normal bone marrow edema. There are arthritic degenerative changes more prominent at the 1st metatarsal-phalangeal joint. IMPRESSION: Findings suggestive of osteomyelitis involving the distal phalanx of the 1st left toe.
--- NOTE | 2018-02-25 19:33 | CP.PCM.PN ---
Subjective - Date & Time of Evaluation Date of Evaluation: 02/25/18 Time of Evaluation: 19:32 - Subjective Subjective: CHIEF COMPLAINTS TODAY : AFEBRILE, left hullux ulcer slightly dusky in color. Denies pain. MRI of the foot +ve osteomyelitis of the distal phalanx of the first left toe. ROS. HEENT : N. Resp : No cough, wheezing ,pleuritic CP ,or hemoptysis Cardio : No anginal CP, PND, orthopnea, palpitation GI : No abd.pain, n/v ,diarrhea or GI bleeding . 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 Musculoskel : No joint swelling , Derm : No rash Psych : Normal affect. Ext : No swelling ,calf pain +VE ULCER L HULLUX PLANTER ASPECT WITH SOME DUSKINESS AND GANGRENOUS CHANGES PE. Pt. is alert awake in no distress. V.S As noted in the chart Head ,ear nose,throat and eyes : Normal. Neck : Supple with normal carotids. Lungs: Clear air entry. Heart : S1 & S2 normal with S4. No murmur. Abd : Soft non tender with normal bowel sounds. Neuro : Moves all ext. with no localized deficit. Ext : No edema with intact pulses.Non tender calves +VE ULCER L HULLUX PLANTER ASPECT WITH SOME DUSKINESS AND GANGRENOUS CHANGES. RT BIG TOE PARTIAL AMPUTATION. Derm : No rashes or decubitus ulcer. LABS/RADIOLOGY: wound culture +ve MSSA. ESR 35 HGB A1C 8.2 cREATININE 1.0/bun 23 Objective - Vital Signs/Intake and Output Vital Signs (last 24 hours): Temp Pulse Resp BP Pulse Ox 97.4 F L 79 20 138/91 H 95 02/25/18 16:45 02/25/18 16:45 02/25/18 16:45 02/25/18 16:45 02/25/18 16:45 Intake and Output: 02/25/18 02/26/18 18:59 06:59 Intake Total 900 Balance 900 - Medications Medications: Current Medications Heparin Sodium (Porcine) (Heparin) 5,000 units SC Q12 JACY Last Admin: 02/25/18 09:44 Dose: 5,000 units Vancomycin/Sodium Chloride (Vancomycin 1 Gm/Ns 200 Ml) 1 gm in 200 mls @ 166.6 mls/hr IVPB Q12H JACY; Protocol Stop: 02/28/18 15:16 Last Admin: 02/25/18 14:35 Dose: 166.6 mls/hr Insulin Aspart (Novolog) 0 unit SC ACHS JACY; Protocol Last Admin: 02/25/18 17:07 Dose: 1 units Lactulose (Enulose) 20 gm PO HS JACY Last Admin: 02/25/18 00:38 Dose: 20 gm Simethicone (Mylicon Chew Tab) 80 mg PO TID PRN PRN Reason: GI distress Last Admin: 02/25/18 00:38 Dose: 80 mg - Labs Labs: 02/23/18 02:51 02/23/18 02:51 Assessment and Plan (1) Osteomyelitis of foot, left, acute Status: Acute (2) Diabetic ulcer of toe Status: Acute (3) Diabetes mellitus Status: Acute - Assessment and Plan (Free Text) Plan: OFF ZOSYN. CONTINUE iv VANCOMYCIN TO 1 G EVERY 12 HOURLY. 02/23/18. F/U VANCO TROUGH PRIOR TO THE FOURTH DOSE AND KEEP BETWEEN 10 AND 20MCG/ML. FOLLOW-UP CULTURES TO ADJUST ANTIBIOTICS. PER PODIATRY. VASCULAR W/U IN PROGRESS.
[2018-02-26] MEDS: Vancomycin 1 gm/NS 200 ml 1 GM/200 ML BAG IVPB SCH ×2 (03:40→16:10)
[2018-02-26] MEDS: (Novolog) Insulin Aspart, Recombinant 100 u/ml 10 ml vial SC SCH ×4 (08:12→22:13)
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
--- NOTE | 2018-02-26 12:14 | CP.PCM.PN ---
Subjective - Date & Time of Evaluation Date of Evaluation: 02/26/18 Time of Evaluation: 12:11 - Subjective Subjective: Podiatry progress note for Dr. Cruz OsmanM seen and evaluated at bedside. Resting comfortably. Denies pain or discomfort in feet or at left hallux. States MRI, CT, and blood pressure cuff test were performed. Denies N/V/F/C/SOB/CP and has no other acute complaints. Objective - Vital Signs/Intake and Output Vital Signs (last 24 hours): Temp Pulse Resp BP Pulse Ox 97.5 F L 74 20 137/88 97 02/26/18 07:20 02/26/18 07:20 02/26/18 07:20 02/26/18 07:20 02/26/18 07:20 - Medications Medications: Current Medications Vancomycin/Sodium Chloride (Vancomycin 1 Gm/Ns 200 Ml) 1 gm in 200 mls @ 166.6 mls/hr IVPB Q12H JACY; Protocol Stop: 02/28/18 15:16 Last Admin: 02/26/18 03:40 Dose: 166.6 mls/hr Insulin Aspart (Novolog) 0 unit SC ACHS JACY; Protocol Last Admin: 02/26/18 11:27 Dose: 2 units Lactulose (Enulose) 20 gm PO HS JACY Last Admin: 02/25/18 21:43 Dose: Not Given Simethicone (Mylicon Chew Tab) 80 mg PO TID PRN PRN Reason: GI distress Last Admin: 02/25/18 00:38 Dose: 80 mg - Labs Labs: 02/23/18 02:51 02/23/18 02:51 - Constitutional Appears: Well, Non-toxic, No Acute Distress - Head Exam Head Exam: ATRAUMATIC, NORMOCEPHALIC - Extremities Exam Additional comments: LLE focused Vasc: DP and PT pulses palpable; cap refill <3 seconds to all digits; temp gradient warm to warm from proximal to distal; mild edema noted about the left hallux Derm: unstageable pressure ulceration present at the plantar aspect of the hallux; no probe to bone; no tunneling or tracking; no undermining; periwound erythema noted; demarcation on presentation, significant improvement; no pus or purulent drainage appreciated; no clinical signs of infection; gangrenous changes noted, increased area of darkened tissue plantarly Ortho: no pain on palpation; no gross pathology noted otherwise Neuro: gross and protective sensation diminished - Neurological Exam Neurological Exam: Alert, Awake, Oriented x3 - Psychiatric Exam Psychiatric exam: Normal Affect, Normal Mood Assessment and Plan - Assessment and Plan (Free Text) Assessment: 43M with left plantar hallux unstageable pressure ulceration with gangrenous changes Plan: Patient seen and evaluated Discussed in detail with Dr. Cruz Salesebendy, WBC 12.7 (02/23) ID consult, Dr. Cazares - f/u recs Continue abx per medicine Wound cx ordered - nyasia clement Arterial duplex ordered - non diagnostic due to arterial wall calcifications b/l X-ray of left foot - normal x-ray, no acute pathology noted L foot MRI w/o contrast, r/o osteo - OM of distal phalanx of L hallux Dr. Navarro consulted - f/u read of CT angio Wound cleansed with sterile saline and dressed with betadine, DSD Will continue to follow up while in house
--- NOTE | 2018-02-26 12:45 | CT ---
Date of service: 02/25/2018 PROCEDURE: CT Angiography Abdomen, Pelvis and Lower Extremity with Contrast HISTORY: left hallux gangrene COMPARISON: None available. TECHNIQUE: Technique: CT angiography of the abdomen, pelvis and bilateral lower extremities performed in the arterial phase of enhancement. Coronal and sagittal reformats, and well as rotating MIP images of the vessels generated at the workstation. Intravenous contrast dose: Radiation dose: Total exam DLP = 3786.91 mGy-cm. This CT exam was performed using one or more of the following dose reduction techniques: Automated exposure control, adjustment of the mA and/or kV according to patient size, and/or use of iterative reconstruction technique. FINDINGS: CT ANGIOGRAPHY: ABDOMINAL AORTA:: Widely patent through its bifurcation. No stenosis. MAJOR AORTIC BRANCHES: Celiac [place]: Unremarkable. Superior mesenteric artery: Unremarkable. Inferior mesenteric artery: Unremarkable. Renal arteries: Unremarkable. PELVIC ARTERIES: Right Common Iliac: Unremarkable. Right External Iliac: Unremarkable. Right Internal Iliac: Unremarkable. Left Common Iliac: Unremarkable. Left External Iliac: Unremarkable. Left Internal Iliac: Unremarkable. RIGHT LOWER EXTREMITY ARTERIES: Right Common Femoral: Unremarkable. Right Superficial Femoral: Unremarkable. Right Profunda Femoris: Unremarkable. Right Popliteal:[id number] stenosis at the mid segment level possibly from thrombus or soft plaque. Right Anterior Tibial: Unremarkable. Right Tibioperoneal Trunk: Unremarkable. Right Posterior Tibial: Unremarkable. Right Peroneal: Unremarkable. Right dorsalis pedis : Unremarkable. LEFT LOWER EXTREMITY ARTERIES: Left Common Femoral: Unremarkable. Left Superficial Femoral: Unremarkable. Left Profunda Femoris: Unremarkable. Left Popliteal: Unremarkable. Left Anterior Tibial: Unremarkable. Left Tibioperoneal Trunk: Unremarkable. Left Posterior Tibial: Unremarkable. Left Peronea: Unremarkable. Left Dorsalis pedis: Unremarkable. Note is made of scattered varices in the superficial subcutaneous fat minimally at the left groin and mildly at the antral lateral left thigh, lateral left leg and medial and lateral right leg, particularly the calf level. NON-ANGIOGRAPHIC ASPECT OF THE EXAM: LOWER THORAX: Unremarkable. LIVER: hepatic steatosis without focal mass or intrahepatic biliary dilatation appreciated. GALLBLADDER AND BILE DUCTS: Completely contracted. PANCREAS: Unremarkable. No gross lesion or ductal dilatation. SPLEEN: Unremarkable. ADRENALS: Unremarkable. No mass. KIDNEYS AND URETERS: Unremarkable. No hydronephrosis. No solid mass. STOMACH AND BOWEL: No bowel obstruction appreciable. Moderately prominent fecal loading throughout the colon sparing the distal sigmoid. APPENDIX: Normal appendix. PERITONEUM: Unremarkable. No free fluid. No free air. LYMPH NODES: Unremarkable. No enlarged lymph nodes. BLADDER: Urinary bladder is nearly completely decompressed with poor evaluation of the wall which appears thickened though this could be on the basis of contraction. REPRODUCTIVE: Unremarkable. BONES: No acute fracture. OTHER FINDINGS: None. IMPRESSION: Widely patent aortic iliofemoral arterial system with three-vessel runoff to the feet bilaterally. Note is made of a [id number] mid right popliteal artery stenosis however. Incidental note is made of bilateral lower extremity varices left thigh and bilateral legs. Limited imaging through the abdomen pelvis organs given arterial phase imaging and oral contrast reveals only appendix steatosis. Urinary bladder is completely decompressed with limited evaluation of the wall.
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
[2018-02-27] MEDS: Vancomycin 1 gm/NS 200 ml 1 GM/200 ML BAG IVPB SCH (04:04)
[2018-02-27 07:59] LABS: BASO % 0.4 % (0.0-2.0); EOS # 0.2 K/uL (0.0-0.7); EOS % 1.9 % (0.0-4.0); HEMOGLOBIN 16.2 g/dL (12.0-18.0); LYMPH # 2.9 K/uL (1.0-4.3); LYMPH % 29.2 % (20.0-40.0); MEAN CELL VOLUME 88.4 fL (80.0-94.0); MEAN CORPUSCULAR HEMOGLOBIN 30.4 pg (27.0-31.0); MEAN CORPUSCULAR HGB CONC 34.4 g/dL (33.0-37.0); MEAN PLATELET VOLUME 9.6 fL (7.2-11.7); MONO # 0.7 K/uL (0.0-0.8); MONO % 7.3 % (0.0-10.0); NEUT # 6.2 K/uL (1.8-7.0); NEUT % 61.2 % (50.0-75.0); NRBC % 0.1 % (0.0-2.0); RBC 5.32 Mil/uL (4.40-5.90); RED CELL DISTRIBUTION WIDTH 13.1 % (11.5-14.5); WHITE BLOOD COUNT 10.1 K/uL (4.8-10.8)
[2018-02-27] MEDS: (Novolog) Insulin Aspart, Recombinant 100 u/ml 10 ml vial SC SCH ×5 (08:20→21:30)
[2018-02-27 08:33] LABS: ALB/GLOB RATIO 1.2 (1.0-2.1); ALBUMIN 4.2 g/dL (3.5-5.0); ALT/SGPT 31 U/L (21-72); AST/SGOT 34 U/L (17-59); BLOOD UREA NITROGEN 15 mg/dL (9-20); CALCIUM 8.9 mg/dl (8.6-10.4); GFR NON-AFRICAN AMERICAN > 60
--- NOTE | 2018-02-27 10:15 | CP.PCM.PN ---
Subjective - Date & Time of Evaluation Date of Evaluation: 02/27/18 Time of Evaluation: 10:15 - Subjective Subjective: Podiatry Progress Note - Dr. Arroyo 43 y/o male seen and evaluated at bedside for left hallux ulcer. Denies pain or discomfort in feet or at left hallux. States he is on the fence about having surgery versus antibiotics as he is concerned about having amputations on both big toes. Says he will try to make a decision by tomorrow. Denies N/V/F/C/SOB/CP and has no other acute complaints. Objective - Vital Signs/Intake and Output Vital Signs (last 24 hours): Temp Pulse Resp BP Pulse Ox 97.9 F 86 20 131/88 97 02/26/18 23:15 02/26/18 23:15 02/26/18 23:15 02/26/18 23:15 02/26/18 23:15 - Medications Medications: Current Medications Vancomycin/Sodium Chloride (Vancomycin 1 Gm/Ns 200 Ml) 1 gm in 200 mls @ 166.6 mls/hr IVPB Q12H [facility]; Protocol Stop: 02/28/18 15:16 Last Admin: 02/27/18 04:04 Dose: 166.6 mls/hr Insulin Aspart (Novolog) 0 unit SC ACHS [facility]; Protocol Last Admin: 02/27/18 08:55 Dose: 1 units Lactulose (Enulose) 20 gm PO HS [facility]AC[facility] Last Admin: 02/26/18 22:21 Dose: Not Given Simethicone (Mylicon Chew Tab) 80 mg PO TID PRN PRN Reason: GI distress Last Admin: 02/25/18 00:38 Dose: 80 mg - Labs Labs: 02/27/18 07:34 02/27/18 07:34 - Constitutional Appears: Well, Non-toxic, No Acute Distress - Extremities Exam Additional comments: LLE focused examination: Vasc: DP and PT pulses palpable. CFT<3 seconds to all digits. Temperature gradient warm to warm from proximal to distal. Mild edema noted surrounding the left hallux Derm: unstageable pressure ulceration present at the plantar aspect of the hallux with stable black eschar and mild marianne wound erythema present. No probe to bone; no tunneling or tracking; no undermining. Demarcation on presentation. No pus or purulent drainage appreciated. No clinical signs of infection. Ortho: no pain on palpation; no gross pathology noted otherwise Neuro: gross and protective sensation diminished - Neurological Exam Neurological Exam: Alert, Awake, Oriented x3 - Psychiatric Exam Psychiatric exam: Normal Affect, Normal Mood Assessment and Plan - Assessment and Plan (Free Text) Assessment: 43 y/o male with left plantar hallux unstageable pressure ulceration with gangrenous changes Plan: Patient seen and evaluated Discussed plan in detail with Dr. Arroyo Afebendy, WBC trending down, now at 10.[address] Cazares who will discuss treatment options further with patient later today Continue IV abx per medicine and ID Wound cx shows S. aureus Arterial duplex- non diagnostic due to arterial wall calcifications X-ray of left foot - normal x-ray, no acute pathology noted L foot MRI w/o contrast shows OM of distal phalanx of L hallux Dr. Navarro consulted - CT angio shows 3 vessel runoff to B/L LE Wound cleansed with sterile saline and dressed with betadine, DSD Will continue to follow up while in house
[2018-02-27] MEDS: Simethicone 80 mg Chewtab PO PRN (12:28)
--- NOTE | 2018-02-27 14:38 | CP.PCM.PN ---
Subjective - Date & Time of Evaluation Date of Evaluation: 02/27/18 Time of Evaluation: 14:38 - Subjective Subjective: CHIEF COMPLAINTS TODAY : AFEBRILE, left hullux ulcer slightly dusky in color. Denies pain. MRI of the foot +ve osteomyelitis of the distal phalanx of the first left toe. ROS. HEENT : N. Resp : No cough, wheezing ,pleuritic CP ,or hemoptysis Cardio : No anginal CP, PND, orthopnea, palpitation GI : No abd.pain, n/v ,diarrhea or GI bleeding . STATUE MAKER : No headache, vertigo, focal deficit. Musculoskel : No joint swelling , Derm : No rash Psych : Normal affect. Ext : No swelling ,calf pain +VE ULCER L HULLUX PLANTER ASPECT WITH SOME DUSKINESS AND GANGRENOUS CHANGES PE. Pt. is alert awake in no distress. V.S As noted in the chart Head ,ear nose,throat and eyes : Normal. Neck : Supple with normal carotids. Lungs: Clear air entry. Heart : S1 & S2 normal with S4. No murmur. Abd : Soft non tender with normal bowel sounds. Neuro : Moves all ext. with no localized deficit. Ext : No edema with intact pulses.Non tender calves +VE ULCER L HULLUX PLANTER ASPECT WITH SOME DUSKINESS AND GANGRENOUS CHANGES. RT BIG TOE PARTIAL AMPUTATION. Derm : No rashes or decubitus ulcer. LABS/RADIOLOGY: wound culture +ve MSSA. ESR 35 HGB A1C 8.2 cREATININE 1.0/bun 23 Objective - Vital Signs/Intake and Output Vital Signs (last 24 hours): Temp Pulse Resp BP Pulse Ox 97.9 F 86 20 131/88 97 02/26/18 23:15 02/26/18 23:15 02/26/18 23:15 02/26/18 23:15 02/26/18 23:15 - Medications Medications: Current Medications Cefazolin Sodium/Dextrose (Ancef Iv 2 Gm Duplex) 2 gm in 50 mls @ 100 mls/hr IVPB Q8H [facility]; Protocol Insulin Aspart (Novolog) 0 unit SC ACHS [facility]; Protocol Last Admin: 02/27/18 12:29 Dose: 4 units Lactulose (Enulose) 20 gm PO HS [facility] Last Admin: 02/26/18 22:21 Dose: Not Given Simethicone (Mylicon Chew Tab) 80 mg PO TID PRN PRN Reason: GI distress Last Admin: 02/27/18 12:28 Dose: 80 mg - Labs Labs: 02/27/18 07:34 02/27/18 07:34 Assessment and Plan (1) Osteomyelitis of foot, left, acute Status: Acute (2) Diabetic ulcer of toe Status: Acute (3) Diabetes mellitus Status: Acute - Assessment and Plan (Free Text) Plan: Case discussed with podiatry resident. Patient has osteomyelitis of the distal phalanx left big toe with impending gangrene. Patient explained and given options for a trial of long antibiotics versus surgery. Patient planning to get surgery as circulation is good and patient states his other side of the right foot healed very quickly after surgery. Patient will discuss with podiatry his plans tomorrow. Patient's wound cultures came back positive for MSSA. DC IV vancomycin because of nephrotoxicity. Start IV Ancef 2 g every 8 hourly for now.02/27/18. Local wound care as per podiatry. Case also discussed with staff and director case.
[2018-02-27] MEDS: ceFAZolin 2 GM in Sodium Chloride 0.9% 100 ML IVPB SCH ×2 (14:59→22:18)
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
[2018-02-28] MEDS: ceFAZolin 2 GM in Sodium Chloride 0.9% 100 ML IVPB SCH ×3 (05:46→21:48)
[2018-02-28] MEDS: (Novolog) Insulin Aspart, Recombinant 100 u/ml 10 ml vial SC SCH ×4 (08:43→21:39)
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
--- NOTE | 2018-02-28 20:35 | CP.PCM.PN ---
Subjective - Date & Time of Evaluation Date of Evaluation: 02/28/18 Time of Evaluation: 20:33 - Subjective Subjective: Podiatry Progress Note - Dr. Arroyo 43 y/o male seen at bedside today for left hallux ulcer. Pt denies any new pedal complaints. States he is ready to proceed with surgery. Is aware that he will likely be sent home with antibiotics following surgery. States that he is capable of doing at home bandage changes in between follow up visits if necessary. Has no other questions or concerns about surgery. Denies F/C/N/V/CP/SOB Objective - Vital Signs/Intake and Output Vital Signs (last 24 hours): Temp Pulse Resp BP Pulse Ox 97.9 F 94 H 20 145/96 H 96 02/28/18 15:00 02/28/18 15:00 02/28/18 15:00 02/28/18 15:00 02/28/18 15:00 - Medications Medications: Current Medications Cefazolin Sodium 2 gm/ Sodium (Chloride) 100 mls @ 200 mls/hr IVPB Q8H [facility]; Protocol Last Admin: 02/28/18 15:03 Dose: 200 mls/hr Insulin Aspart (Novolog) 0 unit SC ACHS [facility]; Protocol Last Admin: 02/28/18 17:42 Dose: 1 units Lactulose (Enulose) 20 gm PO HS [facility] Last Admin: 02/27/18 22:17 Dose: Not Given Simethicone (Mylicon Chew Tab) 80 mg PO TID PRN PRN Reason: GI distress Last Admin: 02/27/18 12:28 Dose: 80 mg - Labs Labs: 02/27/18 07:34 02/27/18 07:34 - Constitutional Appears: Well, Non-toxic, No Acute Distress - Extremities Exam Additional comments: Left lower extremity focused examination: Vasc: DP and PT pulses palpable. CFT<3 seconds to all digits. Temperature gradient warm to warm from proximal to distal. Mild edema noted surrounding the left hallux Derm: unstageable pressure ulceration present at the plantar aspect of the hallux with stable black eschar and mild marianne wound erythema present. No probe to bone; no tunneling or tracking; no undermining. Demarcation on presentation. No active drainage noted. No clinical signs of infection. Ortho: no pain on palpation of ulceration Neuro: gross and protective sensation diminished - Neurological Exam Neurological Exam: Alert, Awake, Oriented x3 - Psychiatric Exam Psychiatric exam: Normal Affect, Normal Mood Assessment and Plan - Assessment and Plan (Free Text) Assessment: 43 y/o male with left plantar hallux unstageable pressure ulceration with gangrenous changes Plan: Patient seen and evaluated Discussed plan in detail with Dr. Arroyo Arterial duplex- non diagnostic due to arterial wall calcifications X-ray of left foot - normal x-ray, no acute pathology noted L foot MRI w/o contrast shows OM of distal phalanx of L hallux Dr. Navarro on consult - CT angio shows 3 vessel runoff to B/L LE Wound cleansed with sterile saline and dressed with betadine, DSD Continue IV abx per medicine and ID Wound cx + for growth of MSSA Pt to go to OR on Sunday 7:45AM for L foot partial hallux amputation Pt will be allowed partial WB to heel with use of surgical shoe at all times Medical clearance requested at this time, appreciated Will continue to follow up while in house
--- NOTE | 2018-02-28 20:38 | CP.PCM.PN ---
Subjective - Date & Time of Evaluation Date of Evaluation: 02/28/18 Time of Evaluation: 20:38 - Subjective Subjective: CHIEF COMPLAINTS TODAY : AFEBRILE, left hullux ulcer slightly dusky in color. Denies pain. PT WANTS SURGERY ? PARTIAL AMPUATION LT.TOE MRI of the foot +ve osteomyelitis of the distal phalanx of the first left toe. PODIATRY F/U NOTED ROS. HEENT : N. Resp : No cough, wheezing ,pleuritic CP ,or hemoptysis Cardio : No anginal CP, PND, orthopnea, palpitation GI : No abd.pain, n/v ,diarrhea or GI bleeding . FOOD AND BEVERAGE ASSOCIATE : No headache, vertigo, focal deficit. Musculoskel : No joint swelling , Derm : No rash Psych : Normal affect. Ext : No swelling ,calf pain +VE ULCER L HULLUX PLANTER ASPECT WITH SOME DUSKINESS AND GANGRENOUS CHANGES PE. Pt. is alert awake in no distress. V.S As noted in the chart Head ,ear nose,throat and eyes : Normal. Neck : Supple with normal carotids. Lungs: Clear air entry. Heart : S1 & S2 normal with S4. No murmur. Abd : Soft non tender with normal bowel sounds. Neuro : Moves all ext. with no localized deficit. Ext : No edema with intact pulses.Non tender calves +VE ULCER L HULLUX PLANTER ASPECT WITH SOME DUSKINESS AND GANGRENOUS CHANGES. RT BIG TOE PARTIAL AMPUTATION. Derm : No rashes or decubitus ulcer. LABS/RADIOLOGY: wound culture +ve MSSA. Objective - Vital Signs/Intake and Output Vital Signs (last 24 hours): Temp Pulse Resp BP Pulse Ox 97.9 F 94 H 20 145/96 H 96 02/28/18 15:00 02/28/18 15:00 02/28/18 15:00 02/28/18 15:00 02/28/18 15:00 - Medications Medications: Current Medications Cefazolin Sodium 2 gm/ Sodium (Chloride) 100 mls @ 200 mls/hr IVPB Q8H [facility]; Pr otocol Last Admin: 02/28/18 15:03 Dose: 200 mls/hr Insulin Aspart (Novolog) 0 unit SC ACHS [facility]; Protocol Last Admin: 02/28/18 17:42 Dose: 1 units Lactulose (Enulose) 20 gm PO HS [facility] Last Admin: 02/27/18 22:17 Dose: Not Given Simethicone (Mylicon Chew Tab) 80 mg PO TID PRN PRN Reason: GI distress Last Admin: 02/27/18 12:28 Dose: 80 mg - Labs Labs: 02/27/18 07:34 02/27/18 07:34 Assessment and Plan (1) Osteomyelitis of foot, left, acute Status: Acute (2) Diabetic ulcer of toe Status: Acute (3) Diabetes mellitus Status: Acute - Assessment and Plan (Free Text) Plan: Patient's wound cultures positive for MSSA. OFF IV vancomycin because of nephrotoxicity. Start IV Ancef 2 g every 8 hourly for now.02/27/18. Local wound care as per podiatry. PATIENT SCHEDULED FOR OR ON SUNDAY.03/02/18 PER PODIATRY. FOR MEDICAL CLEARANCE.
[2018-03-01] MEDS: ceFAZolin 2 GM in Sodium Chloride 0.9% 100 ML IVPB SCH ×3 (06:10→22:06)
[2018-03-01] MEDS: (Novolog) Insulin Aspart, Recombinant 100 u/ml 10 ml vial SC SCH ×4 (08:32→21:20)
--- NOTE | 2018-03-01 13:05 | CP.PCM.PN ---
Subjective - Date & Time of Evaluation Date of Evaluation: 03/01/18 Time of Evaluation: 13:04 - Subjective Subjective: Podiatry Progress Note - Dr. Arroyo 43 y/o male seen at bedside for left hallux ulcer. Pt aware and agreeable to surgery tomorrow with Dr. Arroyo. Has no further questions. Denies any pain to the left great toe today. Denies F/C/N/V/CP/SOB Objective - Vital Signs/Intake and Output Vital Signs (last 24 hours): Temp Pulse Resp BP Pulse Ox 97.3 F L 93 H 20 135/96 H 99 03/01/18 08:00 03/01/18 08:00 03/01/18 08:00 03/01/18 08:00 03/01/18 08:00 Intake and Output: 03/01/18 03/01/18 06:59 18:59 Intake Total 580 Balance 580 - Medications Medications: Current Medications Cefazolin Sodium 2 gm/ Sodium (Chloride) 100 mls @ 200 mls/hr IVPB Q8H [facility]; Protocol Last Admin: 03/01/18 06:10 Dose: 200 mls/hr Insulin Aspart (Novolog) 0 unit SC ACHS [facility]; Protocol Last Admin: 03/01/18 12:40 Dose: 3 units Lactulose (Enulose) 20 gm PO HS [facility] Last Admin: 02/28/18 21:15 Dose: Not Given Simethicone (Mylicon Chew Tab) 80 mg PO TID PRN PRN Reason: GI distress Last Admin: 02/27/18 12:28 Dose: 80 mg - Labs Labs: 02/27/18 07:34 02/27/18 07:34 - Constitutional Appears: Well, Non-toxic, No Acute Distress - Extremities Exam Additional comments: Left lower extremity focused examination: Vasc: DP and PT pulses palpable. CFT<3 seconds to all digits. Temperature gradient warm to warm from proximal to distal. Mild edema noted surrounding the left hallux Derm: unstageable pressure ulceration present at the plantar aspect of the hallux with stable black eschar and minimal marianne wound erythema present. Dorsal skin overlying proximal phalanx appears healthy in nature. No probe to bone; no tunneling or tracking; no undermining. Demarcation on presentation. No active drainage noted. No clinical signs of infection. Ortho: no pain on palpation of ulceration Neuro: gross and protective sensation diminished - Neurological Exam Neurological Exam: Alert, Awake - Psychiatric Exam Psychiatric exam: Normal Affect, Normal Mood Assessment and Plan - Assessment and Plan (Free Text) Assessment: 43 y/o male with left plantar hallux unstageable pressure ulceration with gangrenous changes Plan: Patient seen and evaluated Discussed plan in detail with Dr. Arroyo Arterial duplex- non diagnostic due to arterial wall calcifications X-ray of left foot - normal x-ray, no acute pathology noted L foot MRI w/o contrast shows OM of distal phalanx of L hallux Dr. Navarro on consult - CT angio shows 3 vessel runoff to B/L LE Wound cleansed with sterile saline and dressed with betadine, DSD Continue IV abx per medicine and ID Wound cx + for growth of MSSA Pt to go to OR tomorrow at 7:45AM for L foot partial hallux amputation Pt will be allowed partial WB to heel with use of surgical shoe at all times Medical clearance requested at this time, appreciated Will continue to follow up while in house
--- NOTE | 2018-03-01 17:31 | CP.PCM.PN ---
Subjective - Date & Time of Evaluation Date of Evaluation: 03/01/18 Time of Evaluation: 17:31 - Subjective Subjective: CHIEF COMPLAINTS TODAY : AFEBRILE, left hullux ulcer slightly dusky in color. Denies pain. PT for STEFFANY AM MRI of the foot +ve osteomyelitis of the distal phalanx of the first left toe. PODIATRY F/U NOTED ROS. HEENT : N. Resp : No cough, wheezing ,pleuritic CP ,or hemoptysis Cardio : No anginal CP, PND, orthopnea, palpitation GI : No abd.pain, n/v ,diarrhea or GI bleeding . JUMPBASTING CANVAS BASTER : No headache, vertigo, focal deficit. Musculoskel : No joint swelling , Derm : No rash Psych : Normal affect. Ext : No swelling ,calf pain +VE ULCER L HULLUX PLANTER ASPECT WITH SOME DUSKINESS AND GANGRENOUS CHANGES PE. Pt. is alert awake in no distress. V.S As noted in the chart Head ,ear nose,throat and eyes : Normal. Neck : Supple with normal carotids. Lungs: Clear air entry. Heart : S1 & S2 normal with S4. No murmur. Abd : Soft non tender with normal bowel sounds. Neuro : Moves all ext. with no localized deficit. Ext : No edema with intact pulses.Non tender calves +VE ULCER L HULLUX PLANTER ASPECT WITH SOME DUSKINESS AND GANGRENOUS CHANGES. RT BIG TOE PARTIAL AMPUTATION. Derm : No rashes or decubitus ulcer. LABS/RADIOLOGY: RENAL FUNCTION STABLE. wound culture +ve MSSA. Objective - Vital Signs/Intake and Output Vital Signs (last 24 hours): Temp Pulse Resp BP Pulse Ox 98.0 F 110 H 20 115/83 97 03/01/18 15:00 03/01/18 15:00 03/01/18 15:00 03/01/18 15:00 03/01/18 15:00 Intake and Output: 03/01/18 03/01/18 06:59 18:59 Intake Total 580 Balance 580 - Medications Medications: Current Medications Cefazolin Sodium 2 gm/ Sodium (Chloride) 100 mls @ 200 mls/hr IVPB Q8H [facility]; Protocol Last Admin: 03/01/18 13:54 Dose: 200 mls/hr Insulin Aspart (Novolog) 0 unit SC ACHS [facility]; Protocol Last Admin: 03/01/18 12:40 Dose: 3 units Lactulose (Enulose) 20 gm PO HS [facility] Last Admin: 02/28/18 21:15 Dose: Not Given Simethicone (Mylicon Chew Tab) 80 mg PO TID PRN PRN Reason: GI distress Last Admin: 02/27/18 12:28 Dose: 80 mg - Labs Labs: 02/27/18 07:34 02/27/18 07:34 Assessment and Plan (1) Osteomyelitis of foot, left, acute Status: Acute (2) Diabetic ulcer of toe Status: Acute (3) Diabetes mellitus Status: Acute - Assessment and Plan (Free Text) Plan: CONTINUE IV Ancef 2 g every 8 hourly for now.02/27/18. Local wound care as per podiatry. PATIENT SCHEDULED FOR OR ON SUNDAY.03/02/18 PER PODIATRY PT READY FOR SURGERY PER DISCUSSION W PT.
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
[2018-03-01] MEDS: Simethicone 80 mg Chewtab PO PRN (22:08)
--- NOTE | 2018-03-01 22:21 | CP.PCM.CON ---
History of Present Illness - History of Present Illness History of Present Illness: Consultation for evaluation of PVOD / new hallux ulcer HPI: Mr. Walker is a 43-year-old male with past medical history significant for hypertension diabetes who was admitted last week with left hallux ulcer which progressively got worse. At baseline he is fairlly active and denies any . Chest pain shortness of breath palpitations syncope or presyncope. He never had any cardiac workup in the past but works at [employer] active lifestyle no chest pains Review of Systems - Review of Systems Systems not reviewed;Unavailable: Acuity of Condition - Constitutional Constitutional: As Per HPI - EENT Eyes: As Per HPI Ears: As Per HPI Nose/Mouth/Throat: As Per HPI - Cardiovascular Cardiovascular: As Per HPI - Respiratory Respiratory: As Per HPI - Gastrointestinal Gastrointestinal: As Per HPI - Genitourinary Genitourinary: As Per HPI - Reproductive: Male Reproductive:Male: As Per HPI - Musculoskeletal Musculoskeletal: As Per HPI - Integumentary Integumentary: As Per HPI - Neurological Neurological: As Per HPI - Psychiatric Psychiatric: As Per HPI - Endocrine Endocrine: As Per HPI - Hematologic/Lymphatic Hematologic: As Per HPI Past Patient History - Infectious Disease Hx of Infectious Diseases: None - Past Medical History & Family History Past Medical History?: Yes - Past Social History Smoking Status: 1 rarely - CARDIAC Hx Hypertension: Yes - PULMONARY Hx Respiratory Disorders: No - NEUROLOGICAL Hx Neurological Disorder: No - HEENT Hx HEENT Problems: No - RENAL Hx Chronic Kidney Disease: No - ENDOCRINE/METABOLIC Hx Endocrine Disorders: Yes Hx Diabetes Mellitus Type 2: Yes - HEMATOLOGICAL/ONCOLOGICAL Hx Blood Disorders: No - INTEGUMENTARY Hx Dermatological Problems: No - MUSCULOSKELETAL/RHEUMATOLOGICAL Hx Falls: No - GASTROINTESTINAL Hx Gastrointestinal Disorders: Yes Hx Gastroesophageal Reflux: No - GENITOURINARY/GYNECOLOGICAL Hx Genitourinary Disorders: No - PSYCHIATRIC Hx Substance Use: Yes (marajuana) - SURGICAL HISTORY Hx Surgeries: Yes Hx Amputation: Yes (RIGHT GREAT TOE) - ANESTHESIA Hx Anesthesia: Yes Meds Allergies/Adverse Reactions: Allergies Allergy/AdvReac Type Severity Reaction Status Date / Time No Known Allergies Allergy Verified 10/07/17 06:14 - Medications Medications: Current Medications Cefazolin Sodium 2 gm/ Sodium (Chloride) 100 mls @ 200 mls/hr IVPB Q8H [facility]; Protocol Last Admin: 03/01/18 22:06 Dose: 200 mls/hr Insulin Aspart (Novolog) 0 unit SC ACHS [facility]; Protocol Last Admin: 03/01/18 21:20 Dose: Not Given Lactulose (Enulose) 20 gm PO HS [facility] Last Admin: 03/01/18 21:32 Dose: Not Given Simethicone (Mylicon Chew Tab) 80 mg PO TID PRN PRN Reason: GI distress Last Admin: 03/01/18 22:08 Dose: 80 mg Physical Exam - Constitutional Appears: Well - Head Exam Head Exam: ATRAUMATIC, NORMAL INSPECTION, NORMOCEPHALIC - Eye Exam Eye Exam: EOMI, Normal appearance, PERRL Pupil Exam: NORMAL ACCOMODATION, PERRL - ENT Exam ENT Exam: Mucous Membranes Moist, Normal Exam - Neck Exam Neck exam: Positive for: Normal Inspection - Respiratory Exam Respiratory Exam: Clear to Auscultation Bilateral, NORMAL BREATHING PATTERN - Cardiovascular Exam Cardiovascular Exam: REGULAR RHYTHM, RRR, +S1, +S2 - GI/Abdominal Exam GI & Abdominal Exam: Normal Bowel Sounds, Soft. absent: Tenderness - Extremities Exam Extremities exam: Positive for: normal inspection Additional comments: left hallux ulcer with gangrenous changes - Back Exam Back exam: NORMAL INSPECTION - Neurological Exam Neurological exam: Alert, CN II-XII Intact, Normal Gait, Oriented x3, Reflexes Normal - Psychiatric Exam Psychiatric exam: Normal Affect, Normal Mood - Skin Skin Exam: Dry, Intact, Normal Color, Warm Results - Vital Signs Recent Vital Signs: Last Vital Signs Temp 98.0 F 03/01/18 15:00 Pulse 110 H 03/01/18 15:00 Resp 20 03/01/18 15:00 BP 115/83 03/01/18 15:00 Pulse Ox 97 03/01/18 15:00 - Labs Result Diagrams: 02/27/18 07:34 02/27/18 07:34 Labs: Laboratory Results - last 24 hr 03/01/18 03/01/18 03/01/18 06:16 11:31 16:30 POC Glucose (mg/dL) 175 H 281 H 283 H 03/01/18 20:34 POC Glucose (mg/dL) 195 H Assessment & Plan (1) Preop cardiovascular exam Assessment and Plan: As per ACC/AHA guideline he can proceed with planned surgery with low risk for perioperative cardiac event Status: Acute (2) Cellulitis of left foot Status: Acute (3) Diabetic ulcer of toe Status: Acute (4) Osteomyelitis of foot, left, acute Status: Acute (5) Dyslipidemia Assessment and Plan: statins Status: Acute (6) Hypertension Assessment and Plan: low dose ACEi Status: Acute (7) PVD (peripheral vascular disease) Assessment and Plan: CTA DONE shows patent circulation most likely 2' to microvascular disease asa plavix statins acei Status: Acute
[2018-03-02] MEDS: ceFAZolin 2 GM in Sodium Chloride 0.9% 100 ML IVPB SCH ×3 (05:51→22:15)
[2018-03-02] MEDS ORDERED: Lidocaine Hydrochloride 10 ML INJ ONE (07:15)
[2018-03-02] MEDS ORDERED: Bupivacaine HCl 0.5% PF (10 ml) Inj ONE (07:15)
[2018-03-02] MEDS ORDERED: Bacitracin Ointment 30 GM TUBE ONE (07:15)
[2018-03-02] MEDS: (Novolog) Insulin Aspart, Recombinant 100 u/ml 10 ml vial SC SCH ×4 (07:30→22:01)
[2018-03-02] MEDS ORDERED: Lidocaine 1% PF (5ml) Amp INJ ONE (08:15)
[2018-03-02] MEDS ORDERED: Midazolam 2 MG/2 ML VIAL ONE (08:35)
[2018-03-02] MEDS ORDERED: Propofol 10 mg/ml Inj (20 ML) ONE (08:36)
--- NOTE | 2018-03-02 09:44 | PCM.SURG1 ---
Surgeon's Initial Post Op Note - Surgeon's Notes Surgeon: dr. Charlotte Arroyo, DPM Head Of Biology: Dr. Charo marie, PGY1, Dr. Humberto Mckenzie, PGY1 Type of Anesthesia: IV Sedation, Local Anesthesia Administered By: Dr. Bates Pre-Operative Diagnosis: left hallux distal phalanx osteomyeletis with PVD Operative Findings: see dictation. I: pre-op 10 cc 1:1 mix of 1% Lidocaine and 0.5% Marcaine. intra-op 10 cc 1:1 mix of 1% Lidocaine and 0.5% Marcaine. M: 3- 0 Nylon, 2-0 Nylon, 1/4 iodoform packing Post-Operative Diagnosis: same Operation Performed: Left hallux partial amputation Specimen/Specimens Removed: Left distal phalanx. Left proximal phalanx clear margin. left hallux wound cultures Estimated Blood Loss: EBL {In ML}: 10 Blood Products Given: N/A Drains Used: No Drains Post-Op Condition: Good Date of Surgery/Procedure: 03/02/18 Time of Surgery/Procedure: 09:44
[2018-03-02] MEDS ORDERED: HYDROmorphone 0.5 mg/0.5 ml ISec IVP PRN (09:48)
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
[2018-03-02] MEDS: Oxycodone/Acetaminophen 5/325 mg Tab PO PRN ×2 (13:52→22:08)
[2018-03-02 13:53] LABS: HEMOGLOBIN 16.5 g/dL (12.0-18.0); MEAN CELL VOLUME 88.4 fL (80.0-94.0); MEAN CORPUSCULAR HEMOGLOBIN 29.7 pg (27.0-31.0); MEAN CORPUSCULAR HGB CONC 33.6 g/dL (33.0-37.0); MEAN PLATELET VOLUME 9.7 fL (7.2-11.7); RBC 5.54 Mil/uL (4.40-5.90); RED CELL DISTRIBUTION WIDTH 13.2 % (11.5-14.5); WHITE BLOOD COUNT 8.9 K/uL (4.8-10.8)
[2018-03-02 14:08] LABS: BLOOD UREA NITROGEN 26 mg/dL (9-20); CALCIUM 8.6 mg/dl (8.6-10.4); GFR NON-AFRICAN AMERICAN > 60
--- NOTE | 2018-03-02 14:17 | RAD ---
Date of service: 03/02/2018 PROCEDURE: Left Foot Radiographs. HISTORY: s/p left partial hallux amp COMPARISON: None. FINDINGS: BONES: Status post partial amputation of the great toe at the level of midshaft of the proximal phalanx. No acute displaced fracture or bone destruction. Bone alignment is normal. There is a large dorsal calcaneal enthesophyte and small plantar calcaneal spur. JOINTS: Normal. SOFT TISSUES: There is soft tissue irregularity and emphysema in keeping with recent postsurgical changes. OTHER FINDINGS: None. IMPRESSION: Status post partial amputation of the great toe with expected postoperative changes in the soft tissues.
[2018-03-02 15:48] VITALS: RESP 20
--- NOTE | 2018-03-02 20:11 | CP.PCM.PN ---
Subjective - Date & Time of Evaluation Date of Evaluation: 03/02/18 Time of Evaluation: 20:11 - Subjective Subjective: CHIEF COMPLAINTS TODAY : S/P OR TODAY 03/02/18 S/P PARTIAL DISTAL LT. PHALANX AMPUTATION OFFERS NO COMPLAINTS ROS. HEENT : N. Resp : No cough, wheezing ,pleuritic CP ,or hemoptysis Cardio : No anginal CP, PND, orthopnea, palpitation GI : No abd.pain, n/v ,diarrhea or GI bleeding . 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 Musculoskel : No joint swelling , Derm : No rash Psych : Normal affect. Ext : LT FOOT IN DRESSING AND ETELVINA BANDAGE. PE. Pt. is alert awake in no distress. V.S As noted in the chart Head ,ear nose,throat and eyes : Normal. Neck : Supple with normal carotids. Lungs: Clear air entry. Heart : S1 & S2 normal with S4. No murmur. Abd : Soft non tender with normal bowel sounds. Neuro : Moves all ext. with no localized deficit. Ext : LT. FOOT IN DRESSING POST OPT. Derm : No rashes or decubitus ulcer. LABS/RADIOLOGY: RENAL FUNCTION STABLE. wound culture +ve MSSA. Objective - Vital Signs/Intake and Output Vital Signs (last 24 hours): Temp Pulse Resp BP Pulse Ox 97.9 F 96 H 20 131/86 98 03/02/18 15:00 03/02/18 15:00 03/02/18 15:00 03/02/18 15:00 03/02/18 15:00 Intake and Output: 03/02/18 03/03/18 18:59 06:59 Intake Total 1650 Balance 1650 - Medications Medications: Current Medications Acetaminophen (Tylenol 325mg Tab) 650 mg PO Q6 PRN PRN Reason: Pain, Mild (1-3) Hydromorphone HCl (Dilaudid) 0.5 mg IVP Q15M PRN PRN Reason: Pain, severe (8-10) Cefazolin Sodium 2 gm/ Sodium (Chloride) 100 mls @ 200 mls/hr IVPB Q8H [facility]; Pro tocol Last Admin: 03/02/18 13:54 Dose: 200 mls/hr Insulin Aspart (Novolog) 0 unit SC ACHS [facility]; Protocol Last Admin: 03/02/18 17:05 Dose: 2 units Lactulose (Enulose) 20 gm PO HS [facility] Last Admin: 03/01/18 21:32 Dose: Not Given Oxycodone/Acetaminophen (Percocet 5/325 Mg Tab) 1 tab PO Q4H PRN PRN Reason: Pain, moderate (4-7) Stop: 03/05/18 10:01 Last Admin: 03/02/18 13:52 Dose: 1 tab Oxycodone/Acetaminophen (Percocet 5/325 Mg Tab) 2 tab PO Q4H PRN PRN Reason: Pain, severe (8-10) Stop: 03/05/18 10:01 Simethicone (Mylicon Chew Tab) 80 mg PO TID PRN PRN Reason: GI distress Last Admin: 03/01/18 22:08 Dose: 80 mg - Labs Labs: 03/02/18 13:46 03/02/18 13:46 Assessment and Plan (1) Osteomyelitis of foot, left, acute Status: Acute (2) Diabetic ulcer of toe Status: Acute (3) Diabetes mellitus Status: Acute - Assessment and Plan (Free Text) Plan: PLAN; CONTINUE IV Ancef 2 g every 8 hourly for now.02/27/18. CAN SWITCH TO PO KEFLEX 500MG PO TID X 10 DAYS WHEN CLEARED FOR DISCHARGE BY PODIATRY/AND PMD . PO FLORSTAR 250MG CAP PO HS [id number]. Local wound care as per podiatry.
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
[2018-03-03] MEDS: ceFAZolin 2 GM in Sodium Chloride 0.9% 100 ML IVPB SCH ×3 (06:13→21:50)
[2018-03-03] MEDS: Oxycodone/Acetaminophen 5/325 mg Tab PO PRN ×4 (06:16→18:32)
[2018-03-03] MEDS: (Novolog) Insulin Aspart, Recombinant 100 u/ml 10 ml vial SC SCH ×4 (08:37→21:02)
--- NOTE | 2018-03-03 11:37 | CP.PCM.PN ---
Subjective - Date & Time of Evaluation Date of Evaluation: 03/03/18 Time of Evaluation: 11:33 - Subjective Subjective: Podiatry progress note for Dr. Arroyo, 43 y/o male patient POD1 s/p partial left hallux amputation. Patient states he slept well, however is complaining of throbbing pain at this time. Patient denies any other pedal complaints, and is in no acute distress. Patient denies F/N/V/SOB/CP Objective - Vital Signs/Intake and Output Vital Signs (last 24 hours): Temp Pulse Resp BP Pulse Ox 97.7 F 95 H 20 116/79 96 03/03/18 07:30 03/03/18 07:30 03/03/18 07:30 03/03/18 07:30 03/03/18 07:30 - Medications Medications: Current Medications Acetaminophen (Tylenol 325mg Tab) 650 mg PO Q6 PRN PRN Reason: Pain, Mild (1-3) Hydromorphone HCl (Dilaudid) 0.5 mg IVP Q15M PRN PRN Reason: Pain, severe (8-10) Cefazolin Sodium 2 gm/ Sodium (Chloride) 100 mls @ 200 mls/hr IVPB Q8H [facility]; Protocol Last Admin: 03/03/18 06:13 Dose: 200 mls/hr Insulin Aspart (Novolog) 0 unit SC ACHS [facility]; Protocol Last Admin: 03/03/18 08:37 Dose: 2 units Lactulose (Enulose) 20 gm PO HS [facility] Last Admin: 03/02/18 22:12 Dose: Not Given Oxycodone/Acetaminophen (Percocet 5/325 Mg Tab) 1 tab PO Q4H PRN PRN Reason: Pain, moderate (4-7) Stop: 03/05/18 10:01 Last Admin: 03/03/18 06:16 Dose: 1 tab Oxycodone/Acetaminophen (Percocet 5/325 Mg Tab) 2 tab PO Q4H PRN PRN Reason: Pain, severe (8-10) Stop: 03/05/18 10:01 Last Admin: 03/03/18 10:32 Dose: 2 tab Simethicone (Mylicon Chew Tab) 80 mg PO TID PRN PRN Reason: GI distress Last Admin: 03/01/18 22:08 Dose: 80 mg - Labs Labs: 03/02/18 13:46 03/02/18 13:46 - Constitutional Appears: Well, Non-toxic, No Acute Distress - Head Exam Head Exam: ATRAUMATIC, NORMOCEPHALIC - Extremities Exam Additional comments: Left lower extremity focused examination: Vasc: DP and PT pulses palpable. CFT<3 seconds to all digits. Temperature gradient warm to warm from proximal to distal. Mild edema noted surrounding the left hallux Derm: incision site noted to be intact, packing in place dorsally with minimal positive sanguinous drainage, no malodor, bluish discoloration noted of the dorsal skin, flap is otherwise intact Ortho: minimal pain on palpation to surgery site Neuro: gross and protective sensation diminished - Neurological Exam Neurological Exam: Alert, Awake, Oriented x3 - Psychiatric Exam Psychiatric exam: Normal Affect, Normal Mood Assessment and Plan - Assessment and Plan (Free Text) Assessment: 43 y/o male POD1 s/p partial left hallux amputation Plan: Patient seen and evaluated Discussed plan in detail with Dr. Arroyo Arterial duplex- non diagnostic due to arterial wall calcifications X-ray of left foot - normal x-ray, no acute pathology noted L foot MRI w/o contrast shows OM of distal phalanx of L hallux Dr. Navarro on consult - CT angio shows 3 vessel runoff to B/L LE Wound cleansed with sterile saline and dressed with betadine, DSD Continue IV abx per medicine and ID Wound cx + for growth of MSSA Patient wound cleansed with saline, re-packed with 1/2 inch iodoform packing and dressed with betadine DSD Pt will be allowed partial WB to heel with use of surgical shoe at all times Ordered surgical shoe for patient Will continue to follow up while in house
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
[2018-03-04] MEDS: ceFAZolin 2 GM in Sodium Chloride 0.9% 100 ML IVPB SCH ×3 (05:49→22:13)
--- NOTE | 2018-03-04 08:07 | CARD ---
APPROVED REPORT Date of service: 03/01/2018 EKG Measurement Heart [id number] <Conclusion> Sinus tachycardia Septal infarct, age undetermined Abnormal ECG
[2018-03-04] MEDS: (Novolog) Insulin Aspart, Recombinant 100 u/ml 10 ml vial SC SCH ×4 (08:40→21:35)
[2018-03-04] MEDS: Oxycodone/Acetaminophen 5/325 mg Tab PO PRN ×3 (09:41→22:12)
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
--- NOTE | 2018-03-04 17:00 | CP.PCM.PN ---
Subjective - Date & Time of Evaluation Date of Evaluation: 03/04/18 Time of Evaluation: 16:58 - Subjective Subjective: Podiatry progress note for Dr. Arroyo, 43 y/o male patient POD2 s/p partial left hallux amputation. Patient states he slept well, however is complaining of throbbing pain at this time. Patient denies any other pedal complaints, and is in no acute distress. Patient denies F/N/V/SOB/CP Objective - Vital Signs/Intake and Output Vital Signs (last 24 hours): Temp Pulse Resp BP Pulse Ox 97.8 F 90 20 141/90 98 03/04/18 15:00 03/04/18 15:00 03/04/18 15:00 03/04/18 15:00 03/04/18 15:00 Intake and Output: 03/04/18 03/04/18 06:59 18:59 Intake Total 900 Balance 900 - Medications Medications: Current Medications Acetaminophen (Tylenol 325mg Tab) 650 mg PO Q6 PRN PRN Reason: Pain, Mild (1-3) Hydromorphone HCl (Dilaudid) 0.5 mg IVP Q15M PRN PRN Reason: Pain, severe (8-10) Cefazolin Sodium 2 gm/ Sodium (Chloride) 100 mls @ 200 mls/hr IVPB Q8H [facility]; Protocol Last Admin: 03/04/18 14:14 Dose: 200 mls/hr Insulin Aspart (Novolog) 0 unit SC [facility]; Protocol Last Admin: 03/04/18 12:57 Dose: 5 units Lactulose (Enulose) 20 gm PO HS [facility] Last Admin: 03/03/18 21:39 Dose: Not Given Oxycodone/Acetaminophen (Percocet 5/325 Mg Tab) 1 tab PO Q4H PRN PRN Reason: Pain, moderate (4-7) Stop: 03/05/18 10:01 Last Admin: 03/03/18 06:16 Dose: 1 tab Oxycodone/Acetaminophen (Percocet 5/325 Mg Tab) 2 tab PO Q4H PRN PRN Reason: Pain, severe (8-10) Stop: 03/05/18 10:01 Last Admin: 03/04/18 14:17 Dose: 2 tab Simethicone (Mylicon Chew Tab) 80 mg PO TID PRN PRN Reason: GI distress Last Admin: 03/01/18 22:08 Dose: 80 mg - Labs Labs: 03/02/18 13:46 03/02/18 13:46 - Constitutional Appears: Well, Non-toxic, No Acute Distress - Head Exam Head Exam: ATRAUMATIC, NORMOCEPHALIC - Extremities Exam Additional comments: Left lower extremity focused examination: Vasc: DP and PT pulses palpable. CFT<3 seconds to all digits. Temperature gradient warm to warm from proximal to distal. Mild edema noted surrounding the left hallux Derm: incision site noted to be intact, packing in place dorsally with minimal positive sanguinous drainage, no malodor, bluish discoloration noted of the dorsal skin, flap is otherwise intact Ortho: minimal pain on palpation to surgery site Neuro: gross and protective sensation diminished - Neurological Exam Neurological Exam: Alert, Awake, Oriented x3 Assessment and Plan - Assessment and Plan (Free Text) Assessment: 43 y/o male POD2 s/p partial left hallux amputation Plan: Patient seen and evaluated Discussed plan in detail with Dr. Arroyo Arterial duplex- non diagnostic due to arterial wall calcifications X-ray of left foot - normal x-ray, no acute pathology noted L foot MRI w/o contrast shows OM of distal phalanx of L hallux Dr. Navarro on consult - CT angio shows 3 vessel runoff to B/L LE Wound cleansed with sterile saline and dressed with betadine, DSD Continue IV abx per medicine and ID Wound cx + for growth of MSSA Patient wound cleansed with saline, and dressed with betadine DSD Pt will be allowed partial WB to heel with use of surgical shoe at all times Ordered surgical shoe for patient Will continue to follow up while in house
--- NOTE | 2018-03-04 19:06 | CP.PCM.PN ---
Subjective - Date & Time of Evaluation Date of Evaluation: 03/04/18 Time of Evaluation: 19:06 - Subjective Subjective: POD #DAY 2 S/P partial left hallux amputation. C/O PAIN POST OPERATIVE SITE THROBBING IN NATURE. PODIATRY F/U NOTED. PT ON IV ABX. ROS. HEENT : N. Resp : No cough, wheezing ,pleuritic CP ,or hemoptysis Cardio : No anginal CP, PND, orthopnea, palpitation GI : No abd.pain, n/v ,diarrhea or GI bleeding . FLAT SURFACER : No headache, vertigo, focal deficit. Musculoskel : No joint swelling , Derm : No rash Psych : Normal affect. Ext : LT FOOT IN DRESSING AND ETELVINA BANDAGE. PE. Pt. is alert awake in no distress. V.S As noted in the chart Head ,ear nose,throat and eyes : Normal. Neck : Supple with normal carotids. Lungs: Clear air entry. Heart : S1 & S2 normal with S4. No murmur. Abd : Soft non tender with normal bowel sounds. Neuro : Moves all ext. with no localized deficit. Ext : LT. FOOT IN DRESSING POST OPT. Derm : No rashes or decubitus ulcer. LABS/RADIOLOGY: RENAL FUNCTION STABLE. wound culture +ve MSSA. Objective - Vital Signs/Intake and Output Vital Signs (last 24 hours): Temp Pulse Resp BP Pulse Ox 97.8 F 90 20 141/90 98 03/04/18 15:00 03/04/18 15:00 03/04/18 15:00 03/04/18 15:00 03/04/18 15:00 Intake and Output: 03/04/18 03/05/18 18:59 06:59 Intake Total 900 Balance 900 - Medications Medications: Current Medications Acetaminophen (Tylenol 325mg Tab) 650 mg PO Q6 PRN PRN Reason: Pain, Mild (1-3) Hydromorphone HCl (Dilaudid) 0.5 mg IVP Q15M PRN PRN Reason: Pain, severe (8-10) Cefazolin Sodium 2 gm/ Sodium (Chloride) 100 mls @ 200 mls/hr IVPB Q8H [facility]; Protocol Last Admin: 03/04/18 14:14 Dose: 200 mls/hr Insulin Aspart (Novolog) 0 unit SC [facility]; Protocol Last Admin: 03/04/18 18:26 Dose: 1 units Lactulose (Enulose) 20 gm PO HS [facility] Last Admin: 03/03/18 21:39 Dose: Not Given Oxycodone/Acetaminophen (Percocet 5/325 Mg Tab) 1 tab PO Q4H PRN PRN Reason: Pain, moderate (4-7) Stop: 03/05/18 10:01 Last Admin: 03/03/18 06:16 Dose: 1 tab Oxycodone/Acetaminophen (Percocet 5/325 Mg Tab) 2 tab PO Q4H PRN PRN Reason: Pain, severe (8-10) Stop: 03/05/18 10:01 Last Admin: 03/04/18 14:17 Dose: 2 tab Simethicone (Mylicon Chew Tab) 80 mg PO TID PRN PRN Reason: GI distress Last Admin: 03/01/18 22:08 Dose: 80 mg - Labs Labs: 03/02/18 13:46 03/02/18 13:46 Assessment and Plan (1) Osteomyelitis of foot, left, acute Status: Acute (2) Diabetic ulcer of toe Status: Acute (3) Diabetes mellitus Status: Acute - Assessment and Plan (Free Text) Plan: CONTINUE IV Ancef 2 g every 8 hourly for now.02/27/18. ANALGESICS CAN SWITCH TO PO KEFLEX 500MG PO TID X 10 DAYS WHEN CLEARED FOR DISCHARGE BY PODIATRY/AND PMD . PO FLORSTAR 250MG CAP PO HS [id number]. REPEAT WOUND CULTURE DONE BY PODIATRY -P Local wound care as per podiatry.
[2018-03-05] MEDS: Oxycodone/Acetaminophen 5/325 mg Tab PO PRN ×2 (01:24→09:22)
[2018-03-05] MEDS: ceFAZolin 2 GM in Sodium Chloride 0.9% 100 ML IVPB SCH ×3 (05:53→22:13)
[2018-03-05] MEDS: (Novolog) Insulin Aspart, Recombinant 100 u/ml 10 ml vial SC SCH ×4 (08:00→22:09)
--- NOTE | 2018-03-05 13:14 | CP.PCM.PN ---
Subjective - Date & Time of Evaluation Date of Evaluation: 03/05/18 Time of Evaluation: 13:12 - Subjective Subjective: Podiatry progress note for Dr. Arroyo, 43 y/o male patient POD3 s/p partial left hallux amputation. Patient states he slept well, however is complaining of throbbing pain at this time. Patient denies any other pedal complaints, and is in no acute distress. Patient denies F/N/V/SOB/CP Objective - Vital Signs/Intake and Output Vital Signs (last 24 hours): Temp Pulse Resp BP Pulse Ox 97.6 F 77 20 130/94 H 100 03/05/18 07:00 03/05/18 07:00 03/05/18 07:00 03/05/18 07:00 03/05/18 07:00 Intake and Output: 03/05/18 03/05/18 06:59 18:59 Intake Total 440 Balance 440 - Medications Medications: Current Medications Acetaminophen (Tylenol 325mg Tab) 650 mg PO Q6 PRN PRN Reason: Pain, Mild (1-3) Hydromorphone HCl (Dilaudid) 0.5 mg IVP Q15M PRN PRN Reason: Pain, severe (8-10) Cefazolin Sodium 2 gm/ Sodium (Chloride) 100 mls @ 200 mls/hr IVPB Q8H [facility]; Protocol Last Admin: 03/05/18 05:53 Dose: 200 mls/hr Insulin Aspart (Novolog) 0 unit SC [facility]; Protocol Last Admin: 03/05/18 11:39 Dose: 5 units Lactulose (Enulose) 20 gm PO HS [facility] Last Admin: 03/04/18 22:12 Dose: Not Given Simethicone (Mylicon Chew Tab) 80 mg PO TID PRN PRN Reason: GI distress Last Admin: 03/01/18 22:08 Dose: 80 mg - Labs Labs: 03/02/18 13:46 03/02/18 13:46 - Constitutional Appears: Well, Non-toxic, No Acute Distress - Head Exam Head Exam: ATRAUMATIC, NORMOCEPHALIC - Extremities Exam Additional comments: Left lower extremity focused examination: Vasc: DP and PT pulses palpable. CFT<3 seconds to all digits. Temperature gradient warm to warm from proximal to distal. Mild edema noted surrounding the left hallux Derm: incision site noted to be intact, packing in place dorsally with minimal positive sanguinous drainage, no malodor, bluish discoloration noted of the dorsal skin, flap is otherwise intact Ortho: minimal pain on palpation to surgery site Neuro: gross and protective sensation diminished - Neurological Exam Neurological Exam: Alert, Awake, Oriented x3 - Psychiatric Exam Psychiatric exam: Normal Affect, Normal Mood Assessment and Plan - Assessment and Plan (Free Text) Assessment: 43 y/o male POD3 s/p partial left hallux amputation Plan: Patient seen and evaluated Discussed plan in detail with Dr. Arroyo Arterial duplex- non diagnostic due to arterial wall calcifications X-ray of left foot - normal x-ray, no acute pathology noted L foot MRI w/o contrast shows OM of distal phalanx of L hallux Dr. Navarro on consult - CT angio shows 3 vessel runoff to B/L LE Wound cleansed with sterile saline and dressed with betadine, DSD Continue IV abx per medicine and ID Wound cx + for growth of MSSA Patient wound cleansed with peroxide, and dressed with betadine DSD Pt will be allowed partial WB to heel with use of surgical shoe at all times Ordered surgical shoe for patient Will continue to follow up while in house
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
--- NOTE | 2018-03-05 17:09 | CP.PCM.PN ---
Subjective - Date & Time of Evaluation Date of Evaluation: 03/05/18 Time of Evaluation: 17:06 - Subjective Subjective: s/p hallux amputation Objective - Vital Signs/Intake and Output Vital Signs (last 24 hours): Temp Pulse Resp BP Pulse Ox 98.1 F 101 H 20 114/79 97 03/05/18 15:57 03/05/18 15:57 03/05/18 15:57 03/05/18 15:57 03/05/18 15:57 Intake and Output: 03/05/18 03/05/18 06:59 18:59 Intake Total 440 Balance 440 - Medications Medications: Current Medications Acetaminophen (Tylenol 325mg Tab) 650 mg PO Q6 PRN PRN Reason: Pain, Mild (1-3) Cefazolin Sodium 2 gm/ Sodium (Chloride) 100 mls @ 200 mls/hr IVPB Q8H [facility]; Protocol Last Admin: 03/05/18 13:57 Dose: 200 mls/hr Insulin Aspart (Novolog) 0 unit SC [facility]; Protocol Last Admin: 03/05/18 11:39 Dose: 5 units Lactulose (Enulose) 20 gm PO HS [facility] Last Admin: 03/04/18 22:12 Dose: Not Given Simethicone (Mylicon Chew Tab) 80 mg PO TID PRN PRN Reason: GI distress Last Admin: 03/01/18 22:08 Dose: 80 mg - Labs Labs: 03/02/18 13:46 03/02/18 13:46 - Constitutional Appears: Well - Head Exam Head Exam: ATRAUMATIC, NORMAL INSPECTION, NORMOCEPHALIC - Eye Exam Eye Exam: EOMI, Normal appearance, PERRL Pupil Exam: NORMAL ACCOMODATION, PERRL - ENT Exam ENT Exam: Mucous Membranes Moist, Normal Exam - Neck Exam Neck Exam: Full ROM, Normal Inspection. absent: Lymphadenopathy - Respiratory Exam Respiratory Exam: Clear to Ausculation Bilateral, NORMAL BREATHING PATTERN - Cardiovascular Exam Cardiovascular Exam: REGULAR RHYTHM, +S1, +S2. absent: Murmur - GI/Abdominal Exam GI & Abdominal Exam: Soft, Normal Bowel Sounds. absent: Tenderness - Extremities Exam Extremities Exam: Full ROM, Normal Capillary Refill, Normal Inspection. absent: Joint Swelling, Pedal Edema - Back Exam Back Exam: NORMAL INSPECTION - Neurological Exam Neurological Exam: Alert, Awake, CN II-XII Intact, Normal Gait, Oriented x3 - Psychiatric Exam Psychiatric exam: Normal Affect, Normal Mood - Skin Skin Exam: Dry, Intact, Normal Color, Warm Assessment and Plan (1) PVD (peripheral vascular disease) Assessment & Plan: CTA normal microvascular disease asa, plavix statins acei Status: Acute (2) Preop cardiovascular exam Assessment & Plan: tolerated surgery well Status: Acute (3) Cellulitis of left foot Status: Acute (4) Diabetic ulcer of toe Status: Acute (5) Osteomyelitis of foot, left, acute Status: Acute (6) Dyslipidemia Status: Acute (7) Hypertension Status: Acute
[2018-03-06] MEDS: ceFAZolin 2 GM in Sodium Chloride 0.9% 100 ML IVPB SCH ×3 (06:39→22:05)
[2018-03-06] MEDS: (Novolog) Insulin Aspart, Recombinant 100 u/ml 10 ml vial SC SCH ×4 (08:35→22:49)
--- NOTE | 2018-03-06 12:03 | CP.PCM.PN ---
Subjective - Date & Time of Evaluation Date of Evaluation: 03/06/18 Time of Evaluation: 11:11 - Subjective Subjective: Podiatry Progress Note - Dr. Arroyo 43 y/o male patient seen at bedside 4 days s/p partial left hallux amputation. Patient denies pain at present to the left big toe surgical site. Patient denies any other pedal complaints. In NAD at time of visit. Dressings are clean, dry and intact. Patient denies F/N/V/SOB/CP Objective - Vital Signs/Intake and Output Vital Signs (last 24 hours): Temp Pulse Resp BP Pulse Ox 97.6 F 87 20 123/85 97 03/06/18 07:51 03/06/18 07:51 03/06/18 07:51 03/06/18 07:51 03/06/18 07:51 Intake and Output: 03/06/18 03/06/18 06:59 18:59 Intake Total 300 Balance 300 - Medications Medications: Current Medications Acetaminophen (Tylenol 325mg Tab) 650 mg PO Q6 PRN PRN Reason: Pain, Mild (1-3) Last Admin: 03/05/18 22:13 Dose: 650 mg Cefazolin Sodium 2 gm/ Sodium (Chloride) 100 mls @ 200 mls/hr IVPB Q8H [facility]; Protocol Last Admin: 03/06/18 06:39 Dose: 200 mls/hr Insulin Aspart (Novolog) 0 unit SC [facility]; Protocol Last Admin: 03/06/18 08:35 Dose: 1 units Lactulose (Enulose) 20 gm PO HS [facility] Last Admin: 03/05/18 21:43 Dose: Not Given Simethicone (Mylicon Chew Tab) 80 mg PO TID PRN PRN Reason: GI distress Last Admin: 03/01/18 22:08 Dose: 80 mg - Labs Labs: 03/02/18 13:46 03/02/18 13:46 - Constitutional Appears: Well, Non-toxic, No Acute Distress - Extremities Exam Additional comments: Left lower extremity focused examination: Vasc: DP and PT pulses palpable. CFT<3 seconds to all digits. Temperature gradient warm to warm from proximal to distal. Mild edema noted surrounding the left hallux. Capillary refill time to hallux is delayed; WNL for all other digits. Derm: incision site noted to be intact with no signs of dehiscence at surgical sites and sutures intact. Skin edges are well-coapted. Mild dry blood noted overlying surgical sites. Skin to dorsum of surgical site is pink and appears healthy in nature. No open lesions noted. No active drainage or malodor. Ortho: minimal tenderness elicited on palpation to surgery site Neuro: gross and protective sensation diminished - Neurological Exam Neurological Exam: Alert, Awake - Psychiatric Exam Psychiatric exam: Normal Affect, Normal Mood Assessment and Plan - Assessment and Plan (Free Text) Assessment: 43 y/o male 4 days s/p partial left hallux amputation Plan: Patient seen and evaluated Discussed plan in detail with Dr. Arroyo Arterial duplex- non diagnostic due to arterial wall calcifications X-ray of left foot - normal x-ray, no acute pathology noted L foot MRI w/o contrast shows OM of distal phalanx of L hallux Dr. Navarro on consult - CT angio shows 3 vessel runoff to B/L LE Wound cleansed with sterile saline and dressed with betadine, DSD Continue IV abx per medicine and ID Wound cx + for growth of MSSA OR pathology and wound cx of clean margin bone shows light growth of S. aureus Patient wound cleansed with peroxide, and dressed with betadine and DSD to L foot Pt will be allowed partial WB to heel with use of surgical shoe at all times Will continue to follow up while in house
--- NOTE | 2018-03-06 12:07 | CP.PCM.PN ---
Subjective - Date & Time of Evaluation Date of Evaluation: 03/06/18 Time of Evaluation: 11:17 Objective - Vital Signs/Intake and Output Vital Signs (last 24 hours): Temp Pulse Resp BP Pulse Ox 97.6 F 87 20 123/85 97 03/06/18 07:51 03/06/18 07:51 03/06/18 07:51 03/06/18 07:51 03/06/18 07:51 Intake and Output: 03/06/18 03/06/18 06:59 18:59 Intake Total 300 Balance 300 - Medications Medications: Current Medications Acetaminophen (Tylenol 325mg Tab) 650 mg PO Q6 PRN PRN Reason: Pain, Mild (1-3) Last Admin: 03/05/18 22:13 Dose: 650 mg Cefazolin Sodium 2 gm/ Sodium (Chloride) 100 mls @ 200 mls/hr IVPB Q8H [facility]; P rotocol Last Admin: 03/06/18 06:39 Dose: 200 mls/hr Insulin Aspart (Novolog) 0 unit SC [facility]; Protocol Last Admin: 03/06/18 08:35 Dose: 1 units Lactulose (Enulose) 20 gm PO HS [facility] Last Admin: 03/05/18 21:43 Dose: Not Given Simethicone (Mylicon Chew Tab) 80 mg PO TID PRN PRN Reason: GI distress Last Admin: 03/01/18 22:08 Dose: 80 mg - Labs Labs: 03/02/18 13:46 03/02/18 13:46
--- NOTE | 2018-03-06 14:27 | CP.PCM.PN ---
Subjective - Date & Time of Evaluation Date of Evaluation: 03/06/18 Time of Evaluation: 14:27 - Subjective Subjective: afebrile s/p hallux amputation .POD #4 COMFORTABLE DENIES PAIN POST OPERATIVE SITE no new complaint. labs '; BS HIGH >300 WOUND CULTURE 03/04/18 MSSA. CONTINUE IV ABX . ADEQUATE CONTROL OF BS, OTHERWISE POOR WOUND HEALING. LWC PER PODIATRY. Objective - Vital Signs/Intake and Output Vital Signs (last 24 hours): Temp Pulse Resp BP Pulse Ox 97.6 F 87 20 123/85 97 03/06/18 07:51 03/06/18 07:51 03/06/18 07:51 03/06/18 07:51 03/06/18 07:51 Intake and Output: 03/06/18 03/06/18 06:59 18:59 Intake Total 300 Balance 300 - Medications Medications: Current Medications Acetaminophen (Tylenol 325mg Tab) 650 mg PO Q6 PRN PRN Reason: Pain, Mild (1-3) Last Admin: 03/05/18 22:13 Dose: 650 mg Cefazolin Sodium 2 gm/ Sodium (Chloride) 100 mls @ 200 mls/hr IVPB Q8H [facility]; Protocol Last Admin: 03/06/18 06:39 Dose: 200 mls/hr Insulin Aspart (Novolog) 0 unit SC ACHS [facility]; Protocol Last Admin: 03/06/18 13:10 Dose: 3 units Lactulose (Enulose) 20 gm PO HS [facility] Last Admin: 03/05/18 21:43 Dose: Not Given Simethicone (Mylicon Chew Tab) 80 mg PO TID PRN PRN Reason: GI distress Last Admin: 03/01/18 22:08 Dose: 80 mg - Labs Labs: 03/02/18 13:46 03/02/18 13:46 - Constitutional Appears: No Acute Distress - Head Exam Head Exam: NORMAL INSPECTION - Eye Exam Eye Exam: EOMI, PERRL - ENT Exam ENT Exam: Normal Oropharynx - Neck Exam Neck Exam: Normal Inspection - Respiratory Exam Respiratory Exam: Clear to Ausculation Bilateral, NORMAL BREATHING PATTERN - Cardiovascular Exam Cardiovascular Exam: REGULAR RHYTHM, +S1, +S2 - GI/Abdominal Exam GI & Abdominal Exam: Soft, Normal Bowel Sounds - Extremities Exam Extremities Exam: Normal Capillary Refill (LT FOOT IN DRESSING). absent: Calf Tenderness - Neurological Exam Neurological Exam: Alert, Awake, CN II-XII Intact, Oriented x3 - Psychiatric Exam Psychiatric exam: Normal Mood - Skin Skin Exam: Normal Color, Warm Assessment and Plan (1) Osteomyelitis of foot, left, acute Status: Acute (2) Diabetic ulcer of toe Status: Acute (3) Diabetes mellitus Status: Acute - Assessment and Plan (Free Text) Plan: CONTINUE IV Ancef 2 g every 8 hourly for now.02/27/18. ANALGESICS CAN SWITCH TO PO KEFLEX 500MG PO TID X 10 DAYS WHEN CLEARED FOR DISCHARGE BY PODIATRY/AND PMD . PO FLORSTAR 250MG CAP PO HS [id number].
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
[2018-03-07] MEDS: ceFAZolin 2 GM in Sodium Chloride 0.9% 100 ML IVPB SCH ×3 (05:46→22:19)
--- NOTE | 2018-03-07 06:26 | OP ---
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 POSTOPERATIVE DIAGNOSIS: Left hallux distal phalanx osteomyelitis with peripheral vascular disease. PROCEDURE: Left partial hallux amputation. SURGEON: Charlotte Arroyo DPM BASS SINGER: Charo Guaman PGY [address] Humberto Mckenzie, PGY 1. TYPE OF ANESTHESIA: IV sedation with local. ANESTHESIA ADMINISTERED BY: Alex Bates MD. INDICATION: The patient is a 43-year-old male with the above diagnosis. The patient has exhausted all conservative treatments at this time and now requires surgical intervention. The patient signed the consent after careful explanation of risks, benefits, complications, and alternatives for surgical procedure. No guarantees were given nor implied. N.p.o. status was confirmed prior to taking the patient to the operating room. DESCRIPTION OF PROCEDURE: The patient was brought to the operating room, placed on the operating room table in a supine position. Time-out was performed for identification of correct patient and procedure. After induction of IV sedation, the patient received a total of 10 mL of 1% lidocaine plain and 0.5% Marcaine plain in digital block fashion to the left hallux. The left foot was then prepped and draped in a sterile manner and the procedure began. No tourniquet was utilized during this procedure. Attention was directed to the distal tip of the left hallux, where the hallux nail was removed. Next a distal circumferential Symes type incision was made using #15 blade at the level of the proximal interphalangeal joint. The incision was then extended down to the subcutaneous layer extended to the level of bone extending into the interphalangeal joint. Using a bone clamp to stabilize the hallux, the distal phalanx was then disarticulated from the third level of the proximal interphalangeal joint and sent to Pathology. Using a sagittal saw, the head of the proximal phalanx was resected and passed from the operative field and sent to Pathology with a clean margin. Using a fresh #15 blade, all the necrotic and nonviable tissue was then excisionally debrided from surgical site with additional soft tissue removed to allow for adequate skin closure without tension. The wound was then copiously flushed with Irecept and saline. At this time, a wound was taken and the wound was then packed with 0.25 inch iodoform packing. The surgical site was then suture closed using 3-0 and 2-0 Nylon. Next, 10 mL of 1:1 mix of 1% lidocaine with 0.5% Marcaine was then injected in a Stein block fashion to left foot. The surgical site was then dressed with Adaptic, 4 x 4 and Kerlix. POSTOPERATIVE CONDITION: The patient tolerated the anesthesia and procedure well and was escorted to the recovery room with all vital signs are stable and neurovascular status intact to the left foot. The patient is to remain partial weightbearing to left lower extremity as tolerated using surgical shoe and crutches. The patient is to return to the floor and Podiatry will continue to follow upon discharge. The patient will follow up in Dr. Arroyo's office. DAX Simon Charlotte Arroyo DPM AMBERLY
[2018-03-07] MEDS: (Novolog) Insulin Aspart, Recombinant 100 u/ml 10 ml vial SC SCH ×4 (07:52→22:19)
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
--- NOTE | 2018-03-07 21:03 | CP.PCM.PN ---
Subjective - Date & Time of Evaluation Date of Evaluation: 03/07/18 Time of Evaluation: 10:30 - Subjective Subjective: Podiatry Progress Note - Dr. Arroyo 43 y/o male patient seen at bedside this morning, 5 days s/p partial left hallux amputation. Patient denies pain at present to his left foot. Patient denies any other pedal complaints. He states he is prepared to perform dressing changes at home and follow up in podiatry clinic at [facility]. Dressings are clean, dry and intact to left foot. Patient denies F/N/V/SOB/CP Objective - Vital Signs/Intake and Output Vital Signs (last 24 hours): Temp Pulse Resp BP Pulse Ox 97.8 F 96 H 20 122/83 95 03/07/18 16:00 03/07/18 16:00 03/07/18 16:00 03/07/18 16:00 03/07/18 16:00 Intake and Output: 03/07/18 03/08/18 18:59 06:59 Intake Total 900 Balance 900 - Medications Medications: Current Medications Acetaminophen (Tylenol 325mg Tab) 650 mg PO Q6 PRN PRN Reason: Pain, Mild (1-3) Last Admin: 03/07/18 12:23 Dose: 650 mg Cefazolin Sodium 2 gm/ Sodium (Chloride) 100 mls @ 200 mls/hr IVPB Q8H JACY; Protocol Last Admin: 03/07/18 13:49 Dose: 200 mls/hr Insulin Aspart (Novolog) 0 unit SC ACHS JACY; Protocol Last Admin: 03/07/18 17:23 Dose: 2 units Lactulose (Enulose) 20 gm PO HS JACY Last Admin: 03/06/18 22:49 Dose: Not Given Simethicone (Mylicon Chew Tab) 80 mg PO TID PRN PRN Reason: GI distress Last Admin: 03/01/18 22:08 Dose: 80 mg - Labs Labs: 03/02/18 13:46 03/02/18 13:46 - Constitutional Appears: Well, Non-toxic, No Acute Distress - Extremities Exam Additional comments: Left lower extremity focused examination: Vasc: DP and PT pulses palpable. CFT<3 seconds to all digits. Temperature gradient warm to warm from proximal to distal. Mild edema noted surrounding the left hallux. Capillary refill time to hallux is delayed; WNL for all other digits. Derm: Surgical incision site noted to be intact with no signs of dehiscence and sutures intact. Skin edges are well-coapted. Mild dry blood noted overlying surgical sites. Skin to dorsum of surgical site is pink and appears healthy in nature. No open lesions noted. No active drainage or malodor. Ortho: no pain or tenderness elicited on palpation to surgery site Neuro: gross and protective sensation diminished - Neurological Exam Neurological Exam: Alert, Awake, Oriented x3 - Psychiatric Exam Psychiatric exam: Normal Affect, Normal Mood Assessment and Plan - Assessment and Plan (Free Text) Assessment: 43 y/o male 5 days s/p partial left hallux amputation Plan: Patient seen and evaluated Discussed plan in detail with Dr. Arroyo Arterial duplex- non diagnostic due to arterial wall calcifications X-ray of left foot - normal x-ray, no acute pathology noted L foot MRI w/o contrast shows OM of distal phalanx of L hallux Dr. Navarro on consult - CT angio shows 3 vessel runoff to B/L LE Wound cleansed with sterile saline and dressed with betadine, DSD Continue IV abx per medicine and ID Wound cx + for growth of MSSA OR pathology and wound cx of clean margin bone shows light growth of S. aureus Patient wound cleansed with peroxide, and dressed with betadine and DSD to L foot Pt will be allowed partial WB to heel with use of surgical shoe at all times Pt is stable at this time for discharge with continue antibiotic therapy Advise patient to follow up in [facility] podiatry clinic on Mondays from 12-3pm Will continue to follow up while in house
[2018-03-08] MEDS: ceFAZolin 2 GM in Sodium Chloride 0.9% 100 ML IVPB SCH ×2 (06:16→14:09)
[2018-03-08] MEDS: (Novolog) Insulin Aspart, Recombinant 100 u/ml 10 ml vial SC SCH ×3 (08:57→16:53)
--- NOTE | 2018-03-08 13:15 | CP.PCM.PN ---
Subjective - Date & Time of Evaluation Date of Evaluation: 03/08/18 Time of Evaluation: 13:13 - Subjective Subjective: Podiatry Progress Note - Dr. Arroyo 43 y/o male patient seen at bedside today, 6 days s/p partial left hallux amputation. Patient denies pain to his left foot to the surgical site. Patient denies any other pedal complaints. He is aware of discharge plan and knows about dressing changes and follow up. Dressings are clean, dry and intact to left foot. Patient denies F/N/V/SOB/CP Objective - Vital Signs/Intake and Output Vital Signs (last 24 hours): Temp Pulse Resp BP Pulse Ox 97.2 F L 88 20 131/87 98 03/08/18 07:47 03/08/18 07:47 03/08/18 07:47 03/08/18 07:47 03/08/18 07:47 Intake and Output: 03/08/18 03/08/18 06:59 18:59 Intake Total 340 Balance 340 - Medications Medications: Current Medications Acetaminophen (Tylenol 325mg Tab) 650 mg PO Q6 PRN PRN Reason: Pain, Mild (1-3) Last Admin: 03/08/18 08:59 Dose: 650 mg Cefazolin Sodium 2 gm/ Sodium (Chloride) 100 mls @ 200 mls/hr IVPB Q8H JACY; Protocol Last Admin: 03/08/18 06:16 Dose: 200 mls/hr Insulin Aspart (Novolog) 0 unit SC ACHS JACY; Protocol Last Admin: 03/08/18 12:40 Dose: 3 units Lactulose (Enulose) 20 gm PO HS JACY Last Admin: 03/07/18 22:19 Dose: Not Given Simethicone (Mylicon Chew Tab) 80 mg PO TID PRN PRN Reason: GI distress Last Admin: 03/01/18 22:08 Dose: 80 mg - Labs Labs: 03/02/18 13:46 03/02/18 13:46 - Constitutional Appears: Well, Non-toxic, No Acute Distress - Extremities Exam Additional comments: Left lower extremity focused examination: Vasc: DP and PT pulses palpable. CFT<3 seconds to all digits. Temperature gradient warm to warm from proximal to distal. Mild edema noted surrounding the left hallux. Capillary refill time to hallux is delayed but present with no signs of ischemia to 1st digit. CFT is WNL for all other digits. Derm: Surgical incision site noted to be intact with no signs of dehiscence and sutures intact. Skin edges are well-coapted. Mild dry blood noted overlying surgical sites. Skin to dorsum of surgical site is pink and appears healthy in nature. No open lesions noted. No active drainage or malodor. Ortho: no pain or tenderness elicited on palpation to surgery site Neuro: gross and protective sensation diminished - Neurological Exam Neurological Exam: Alert, Awake, Oriented x3 - Psychiatric Exam Psychiatric exam: Normal Affect, Normal Mood Assessment and Plan - Assessment and Plan (Free Text) Assessment: 43 y/o diabetic male who is 6 days s/p partial left hallux amputation Plan: Patient seen and evaluated Discussed plan in detail with Dr. Arroyo Arterial duplex- non diagnostic due to arterial wall calcifications X-ray of left foot - normal x-ray, no acute pathology noted L foot MRI w/o contrast shows OM of distal phalanx of L hallux Dr. Navarro on consult - CT angio shows 3 vessel runoff to B/L LE Wound cleansed with sterile saline and dressed with betadine, DSD Wound cx + for growth of MSSA Continue IV abx per medicine and ID OR pathology and wound cx of clean margin bone shows light growth of S. aureus Patient wound cleansed with peroxide, and dressed with betadine and DSD to L foot Pt will be allowed partial WB to heel with use of surgical shoe at all times Pt is stable at this time for discharge with continue antibiotic therapy Advised patient to perform daily dressing changes with betadine and rolled gauze Advise patient to follow up in [facility] podiatry clinic on Mondays from 12-3pm Will continue to follow up while in house
--- NOTE | 2018-03-08 14:31 | CP.PCM.PN ---
Subjective - Date & Time of Evaluation Date of Evaluation: 03/08/18 Time of Evaluation: 14:31 - Subjective Subjective: PATIENT SEEN AND EXAMINED AT THE BEDSIDE Objective - Vital Signs/Intake and Output Vital Signs (last 24 hours): Temp Pulse Resp BP Pulse Ox 97.2 F L 88 20 131/87 98 03/08/18 07:47 03/08/18 07:47 03/08/18 07:47 03/08/18 07:47 03/08/18 07:47 Intake and Output: 03/08/18 03/08/18 06:59 18:59 Intake Total 340 Balance 340 - Medications Medications: Current Medications Acetaminophen (Tylenol 325mg Tab) 650 mg PO Q6 PRN PRN Reason: Pain, Mild (1-3) Last Admin: 03/08/18 08:59 Dose: 650 mg Cefazolin Sodium 2 gm/ Sodium (Chloride) 100 mls @ 200 mls/hr IVPB Q8H JACY; Protocol Last Admin: 03/08/18 14:09 Dose: 200 mls/hr Insulin Aspart (Novolog) 0 unit SC ACHS JACY; Protocol Last Admin: 03/08/18 12:40 Dose: 3 units Lactulose (Enulose) 20 gm PO HS JACY Last Admin: 03/07/18 22:19 Dose: Not Given Simethicone (Mylicon Chew Tab) 80 mg PO TID PRN PRN Reason: GI distress Last Admin: 03/01/18 22:08 Dose: 80 mg - Labs Labs: 03/02/18 13:46 03/02/18 13:46 Assessment and Plan - Assessment and Plan (Free Text) Assessment: FOLLOW UP WITH DR Vik CURIEL IN HIS OFFICE ----CALL FOR APPOINTMENT FOLLOW UP WITH DR LE IN HIS OFFICE -----CALL FOR APPOINTMENT CONTINUE HOME MEDICATION NEW PRESCRIPTION GIVEN KEFLEX 500 MG PO TID FOR 14 DAYS FLORASTOR 250 MG PO HS FOR 14 DA[address] ACT[address] TOLERATED CALL DR Vik CURIEL OR GO TO THE EMERGENCY ROOM IF SYMPTOM RETURN OR WORSENING
[2018-03-08 15:54] VITALS: BP 132/88; PULSE 84; TEMP 97.6; O2SAT 96
== END 2018-03-08 18:00 | disposition home or self-care (01) | DRG 550 ==
LOC: C.ER 01:47 → C.9E 04:50 → C.5S 06:18 → OBSVTOIN 02-25 15:47 → C.5S 03-07 15:31
PROVIDERS: ADMIT Internal Medicine Nephrology; ATTEND Internal Medicine Nephrology
PROC: 0Y6Q0Z3 Detachment at Left 1st Toe, Low, Open Approach (ICD-10-PCS; principal; 2018-03-02 07:45)
DX: E11.52 Type 2 diabetes mellitus with diabetic peripheral angiopathy with gangrene (principal); M86.172 Other acute osteomyelitis, left ankle and foot; L03.116 Cellulitis of left lower limb; L97.519 Non-pressure chronic ulcer of other part of right foot with unspecified severity; E11.621 Type 2 diabetes mellitus with foot ulcer; E11.69 Type 2 diabetes mellitus with other specified complication; E66.9 Obesity, unspecified; Z68.39 Body mass index [BMI] 39.0-39.9, adult; E78.5 Hyperlipidemia, unspecified; I10 Essential (primary) hypertension; Z79.4 Long term (current) use of insulin; F17.210 Nicotine dependence, cigarettes, uncomplicated; S02.2XXA Fracture of nasal bones, initial encounter for closed fracture